=== PATIENT | female | born 1925 | race Caucasian/White ===

== ENCOUNTER 2016-07-24 21:28 | Inpatient (IN) | payer MEDICARE ==
--- NOTE | 2016-07-24 22:17 | ED ---
Female Urogenital HPI <Raj Ramírez - Last Filed: 07/24/16 23:33> - General Source: patient, RN notes reviewed Mode of arrival: ambulatory Limitations: no limitations <Sarah Delaney - Last Filed: 07/25/16 03:33> - General Chief complaint: Urogenital Stated complaint: Blood/Urine Time Seen by Provider: 07/24/16 21:58 - History of Present Illness Initial comments: Patient is a 89-year-old female presents to the emergency room for evaluation of urinary retention. Patient states she began having bleeding while urinating with clotting about 2 weeks ago. Patient states the bleeding has progressed over the last 2 weeks. Patient states that she has had on and off episodes which she is unable to urinate. Patient states after a certain amount of time, she was able to relieve her symptoms. Patient states today she has been unable to urinate. Patient states she is having constant pressure and pain in her bladder area. Patient denies any pain or burning while during urinating. Patient denies fevers or chills. Patient denies flank pain. Patient does state she has a history of renal disease. Patient also states that she's been on Lasix. Patient denies chest pain or shortness of breath. Patient denies headache or dizziness. Patient denies blood in stools. Patient denies change in color of stools. (Sarah Delaney) - Related Data Home Medications Medication Instructions Recorded Confirmed Acetaminophen Tab [Tylenol] 500 mg PO TID PRN 12/21/14 07/24/16 Aspirin EC [Ecotrin Low Dose] 81 mg PO DAILY 12/21/14 07/24/16 Cholecalciferol [Vitamin D3] 1,000 unit PO DAILY 12/21/14 07/24/16 Digoxin [Lanoxin] 125 mcg PO MOTUWEFRSA 12/21/14 07/25/16 Ferrous Sulfate [Iron (65 MG 325 mg PO DAILY 12/21/14 07/24/16 Elemental)] Furosemide [Lasix] 40 mg PO DAILY 12/21/14 07/24/16 Glimepiride [Amaryl] 4 mg PO BID@0730,1630 12/21/14 07/24/16 Insulin Glargine [Lantus] 22 unit SQ HS 12/21/14 07/24/16 [place]-3 Fatty Acids [[place]-3] 1,000 mg PO DAILY 12/21/14 07/24/16 Warfarin [Coumadin] 2.5 mg PO SUTH 12/21/14 07/25/16 Diltiazem HCl [Cardizem LA] 240 mg PO DAILY 12/22/14 07/24/16 Multivitamins, Thera [Multivitamin 1 tab PO DAILY 12/22/14 07/24/16 (formulary)] Warfarin [Coumadin] 5 mg PO MOTUWEFRSA 12/22/14 07/25/16 traMADol-ACETAMINOP 37.5-325MG 1 tab PO BID@0900,2100 12/22/14 07/24/16 [Ultracet] Atorvastatin Calcium [Lipitor] 40 mg PO HS 07/24/16 07/24/16 INSULIN LISPRO (humaLOG) [HumaLOG] See Protocol SQ AC-TID 07/24/16 07/24/16 Metoprolol Tartrate [Lopressor] 100 mg PO BID@0900,2100 07/24/16 07/24/16 SILVER sulfADIAZINE CREAM 1 applic TOPICAL DAILY 07/24/16 07/24/16 [Silvadene Cream] Ubidecarenone [Co Q-10] 100 mg PO DAILY 07/24/16 07/24/16 Allergies Allergy/AdvReac Type Severity Reaction Status Date / Time rofecoxib [From Vioxx] AdvReac Severe Chest Pain Verified 07/24/16 22:41 codeine AdvReac Vision Verified 07/24/16 22:41 Disturbance Egg Derived AdvReac Nausea & Verified 07/24/16 22:41 Vomiting & Diarrhea enoxaparin sodium AdvReac Kidney Verified 07/24/16 22:41 [From Lovenox] Failure Influenza Virus Vaccines AdvReac Nausea & Verified 07/24/16 22:41 Vomiting & Diarrhea isosorbide mononitrate AdvReac Vertigo Verified 07/24/16 22:41 [From Imdur] monosodium glutamate AdvReac Diarrhea Verified 07/24/16 22:41 pneumococcal vaccine AdvReac Nausea & Verified 07/24/16 22:41 Vomiting & Diarrhea Review of Systems ROS Other: All systems not noted in ROS Statement are negative. <Raj Ramírez - Last Filed: 07/24/16 23:33> ROS Other: All systems not noted in ROS Statement are negative. <Sarah Delaney - Last Filed: 07/25/16 03:33> ROS Statement: Those systems with pertinent positive or pertinent negative responses have been documented in the HPI. Past Medical History Past Medical History: Atrial Fibrillation, Coronary Artery Disease (CAD), CVA/ TIA, Diabetes Mellitus, Hyperlipidemia, Hypertension, Osteoarthritis (OA), Renal Disease Additional Past Medical History / Comment(s): CHF, pulmo HTN History of Any Multi-Drug Resistant Organisms: None Reported Past Surgical History: Appendectomy, Cholecystectomy, Coronary Bypass/CABG, Heart Catheterization With Stent, Tonsillectomy Additional Past Surgical History / Comment(s): Bilateral cataract removal, breast biopsy negative. Past Anesthesia/Blood Transfusion Reactions: No Reported Reaction Date of Last Stent Placement:: 2012 Past Psychological History: No Psychological Hx Reported Smoking Status: Never smoker Past Alcohol Use History: None Reported Additional Past Alcohol Use History / Comment(s): Patient is a lifelong nonsmoker. She denies any medical marijuana, marijuana, street drug or alcohol use. 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 She lives at home alone and has a dog, a cat, 3 birds. She denies any recent travel. Past Drug Use History: None Reported - Past Family History Mother Additional Family Medical History / Comment(s): Brain Tumor <Sarah Delaney - Last Filed: 07/25/16 03:33> General Exam <Raj Ramírez - Last Filed: 07/24/16 23:33> Limitations: no limitations General appearance: alert, in no apparent distress Head exam: Present: atraumatic, normocephalic, normal inspection Eye exam: Present: normal appearance ENT exam: Present: normal exam Neck exam: Present: normal inspection Respiratory exam: Present: normal lung sounds bilaterally. Absent: respiratory distress Cardiovascular Exam: Present: regular rate, normal rhythm, normal heart sounds GI/Abdominal exam: Present: soft, tenderness (suprapubic discomfort). Absent: distended, guarding Rectal exam: Present: hemorrhoids (Multiple large external hemorrhoids) External exam: Present: normal external exam Extremities exam: Present: normal inspection Back exam: Present: normal inspection Neurological exam: Present: alert, oriented X3, CN II-XII intact Psychiatric exam: Present: normal affect, normal mood Skin exam: Present: warm, dry, intact, normal color. Absent: rash <Sarah Delaney - Last Filed: 07/25/16 03:33> - General Exam Comments Initial Comments: Sitting in exam room, uncomfortable secondary urinary retention (Sarah Delaney) Course <Raj Ramírez - Last Filed: 07/24/16 23:33> <Sarah Delaney - Last Filed: 07/25/16 03:33> Vital Signs 07/24/16 07/25/16 07/25/16 21:47 00:23 01:45 Temperature 98.9 F 99.0 F 100 F H Pulse Rate 79 69 Pulse Rate [ 82 Pulse Oximetery ] Respiratory 18 18 20 Rate Blood Pressure 143/71 169/72 Blood Pressure 149/70 [Left Arm] O2 Sat by Pulse 97 93 L 93 L Oximetry - Reevaluation(s) Reevaluation #1: 07/24/16 23:33 I did personally do a [id number] evaluation the patient did discuss the findings with her and her family. Patient initially much improved she has no CVA tenderness at this time no abdominal tenderness she has of a Desai catheter in place which does show gross hematuria. She will be admitted I did discuss the case with Dr. Roberts (Raj Ramírez) Medical Decision Making - Lab Data Result diagrams: 07/24/16 22:46 07/24/16 22:46 <Raj Ramírez - Last Filed: 07/24/16 23:33> - Lab Data Result diagrams: 07/24/16 22:46 07/24/16 22:46 - Radiology Data Radiology results: report reviewed, image reviewed <Sarah Delaney - Last Filed: 07/25/16 03:33> - Medical Decision Making Patient is an 89-year-old female presents to the emergency room for evaluation urinary retention and hematuria. Patient had great relief of symptoms after Desai catheter placed. Patient has significant amount of gross hematuria noted. Patient's hemoglobin decreased from April. Case discussed with Dr. Ramírez. Dr. Ramírez discussed case with Dr. Roberts who agreed to admit patient. (Sarah Delaney) - Lab Data Lab Results 07/24/16 07/24/16 07/24/16 Range/Units 22:27 22:46 22:46 WBC 12.3 H (3.8-10.6) k/uL RBC 2.78 L (3.80-5.40) m/uL Hgb 8.7 L (11.4-16.0) gm/dL Hct 27.7 L (34.0-46.0) % MCV 99.5 (80.0-100.0) fL MCH 31.2 (25.0-35.0) pg MCHC 31.4 (31.0-37.0) g/dL RDW 15.6 H (11.5-15.5) % Plt Count 268 (150-450) k/uL Neutrophils % 82 % Lymphocytes % 9 % Monocytes % 6 % Eosinophils % 1 % Basophils % 1 % Neutrophils # 10.0 H (1.3-7.7) k/uL Lymphocytes # 1.1 (1.0-4.8) k/uL Monocytes # 0.7 (0-1.0) k/uL Eosinophils # 0.2 (0-0.7) k/uL Basophils # 0.1 (0-0.2) k/uL Hypochromasia Moderate Macrocytosis Slight PT (9.0-12.0) sec INR (<1.1) Sodium 138 (137-145) mmol/L Potassium 4.0 (3.5-5.1) mmol/L Chloride 104 (98-107) mmol/L Carbon Dioxide 25 (22-30) mmol/L Anion Gap 9 mmol/L BUN 34 H (7-17) mg/dL Creatinine 1.56 H (0.52-1.04) mg/dL Est GFR (MDRD) Af Amer 38 (>60 ml/min/1.73 sqM) Est GFR (MDRD) Non-Af 31 (>60 ml/min/1.73 sqM) Glucose 326 H (74-99) mg/dL Calcium 9.4 (8.4-10.2) mg/dL Total Bilirubin 0.5 (0.2-1.3) mg/dL AST 48 H (14-36) U/L ALT 63 H (9-52) U/L Alkaline Phosphatase 90 (38-126) U/L Total Protein 6.3 (6.3-8.2) g/dL Albumin 3.6 (3.5-5.0) g/dL Urine Color Dark Red Urine Appearance Turbid H (Clear) Urine pH 6.5 (5.0-8.0) Ur Specific [place] 1.015 (1.001-1.035) Urine Protein 2+ H (Negative) Urine Glucose (UA) Trace H (Negative) Urine Ketones Negative (Negative) Urine Blood Large H (Negative) Urine Nitrite Negative (Negative) Urine Bilirubin Negative (Negative) Urine Urobilinogen <2.0 (<2.0) mg/dL Ur Leukocyte Esterase Moderate H (Negative) Urine RBC >182 H (0-5) /hpf Urine WBC >182 H (0-5) /hpf Urine Bacteria Rare H (None) /hpf Stool Occult Blood (Negative) Blood Type Blood Type Recheck Antibody Screen Spec Expiration Date 07/24/16 07/24/16 07/24/16 Range/Units 22:46 22:46 23:40 WBC (3.8-10.6) k/uL RBC (3.80-5.40) m/uL Hgb (11.4-16.0) gm/dL Hct (34.0-46.0) % MCV (80.0-100.0) fL MCH (25.0-35.0) pg MCHC (31.0-37.0) g/dL RDW (11.5-15.5) % Plt Count (150-450) k/uL Neutrophils % % Lymphocytes % % Monocytes % % Eosinophils % % Basophils % % Neutrophils # (1.3-7.7) k/uL Lymphocytes # (1.0-4.8) k/uL Monocytes # (0-1.0) k/uL Eosinophils # (0-0.7) k/uL Basophils # (0-0.2) k/uL Hypochromasia Macrocytosis PT 19.5 H (9.0-12.0) sec INR 2.0 (<1.1) Sodium (137-145) mmol/L Potassium (3.5-5.1) mmol/L Chloride (98-107) mmol/L Carbon Dioxide (22-30) mmol/L Anion Gap mmol/L BUN (7-17) mg/dL Creatinine (0.52-1.04) mg/dL Est GFR (MDRD) Af Amer (>60 ml/min/1.73 sqM) Est GFR (MDRD) Non-Af (>60 ml/min/1.73 sqM) Glucose (74-99) mg/dL Calcium (8.4-10.2) mg/dL Total Bilirubin (0.2-1.3) mg/dL AST (14-36) U/L ALT (9-52) U/L Alkaline Phosphatase (38-126) U/L Total Protein (6.3-8.2) g/dL Albumin (3.5-5.0) g/dL Urine Color Urine Appearance (Clear) Urine pH (5.0-8.0) Ur Specific [place] (1.001-1.035) Urine Protein (Negative) Urine Glucose (UA) (Negative) Urine Ketones (Negative) Urine Blood (Negative) Urine Nitrite (Negative) Urine Bilirubin (Negative) Urine Urobilinogen (<2.0) mg/dL Ur Leukocyte Esterase (Negative) Urine RBC (0-5) /hpf Urine WBC (0-5) /hpf Urine Bacteria (None) /hpf Stool Occult Blood Positive H (Negative) Blood Type B Positive Blood Type Recheck No Antibody Screen NEGATIVE Spec Expiration Date 07/27/2016 - 2346 Disposition <Raj Ramírez - Last Filed: 07/24/16 23:33> Decision Date: 07/24/16 <Sarah Delaney - Last Filed: 07/25/16 03:33> Clinical Impression: Hematuria, Anemia, Urinary retention Disposition: ADMITTED IP TO THIS [facility] Condition: Stable
[2016-07-24 22:41] LABS: Appearance,Urine Turbid (Clear); Bacteria,Urine Rare /hpf; Bilirubin,Urine Negative (Negative); Glucose,Urine (UA) Trace (Negative); Ketones,Urine Negative (Negative); Leukocyte Esterase,Urine Moderate (Negative); Nitrite,Urine Negative (Negative); PH, Urine 6.5 (5.0-8.0); Particle Count 163715; Protein,Urine 2+ (Negative); RBC,Urine >182 /hpf (0-5); Specific Gravity,Urine 1.015 (1.001-1.035); UA Billing (MACRO vs. MICRO) MICRO; Urobilinogen,Urine <2.0 mg/dL (<2.0); WBC,Urine >182 /hpf (0-5)
[2016-07-24 22:59] LABS: Basophils # (A) 0.1 k/uL (0-0.2); Basophils % (A) 1 %; CH 30.5; Eosinophils # (A) 0.2 k/uL (0-0.7); Eosinophils % (A) 1 %; HCT 27.7 % (34.0-46.0); HDW 3.32; HGB 8.7 gm/dL (11.4-16.0); Hypochromasia Moderate; Luc # (Auto) 0.21; Luc % (Auto) 2; Lymphocytes # (A) 1.1 k/uL (1.0-4.8); Lymphocytes % (A) 9 %; MCH 31.2 pg (25.0-35.0); MCHC 31.4 g/dL (31.0-37.0); MCV 99.5 fL (80.0-100.0); Macrocytosis Slight; Mean Platelet Volume 7.8; Monocytes # (A) 0.7 k/uL (0-1.0); Monocytes % (A) 6 %; Neutrophils % (A) 82 %; RBC 2.78 m/uL (3.80-5.40); RDW 15.6 % (11.5-15.5); WBC 12.3 k/uL (3.8-10.6); WBC (Perox) 12.54
[2016-07-24 23:08] LABS: Prothrombin Time 19.5 sec (9.0-12.0)
[2016-07-24 23:15] LABS: Calcium 9.4 mg/dL (8.4-10.2); Total Bilirubin 0.5 mg/dL (0.2-1.3); Total Protein 6.3 g/dL (6.3-8.2)
[2016-07-24] MEDS ORDERED: NALOXONE 0.4 MG/ML 1 ML VIAL IV PRN (23:41)
[2016-07-24] MEDS ORDERED: ONDANSETRON 4 MG/2 ML VIAL IVP PRN (23:41)
--- NOTE | 2016-07-25 00:03 | CT ---
EXAMINATION TYPE: CT abdomen pelvis wo con DATE OF EXAM: 07/24/2016 11:53 PM COMPARISON: NONE HISTORY: Hematuria, unable to urinate CT DLP: 403.00 mGycm Automated exposure control for dose reduction was used. TECHNIQUE: Helical acquisition of images was performed from the lung bases through the pelvis. FINDINGS: The heart is enlarged. Lung bases are clear of consolidation. There is no pleural effusion. There is no pericardial effusion. Liver shows no focal defect. There is cholecystectomy. Spleen appears normal. There is no pancreatic mass. There is no adrenal mass. Kidneys have normal contour. There is no hydronephrosis. Ureters are not dilated. There is no retroperitoneal adenopathy. There is atherosclerotic vascular calcification. There is a Desai catheter in urinary bladder. Bladder is almost empty. There is no sign of a pelvic mass. I see no intestinal wall thickening. There are no dilated loops. Appendix is not seen. There is no sign of appendicitis. There is multilevel spondylosis in the lumbar spine. There is some relative high attenuation on the posterior aspect of the urinary bladder that could rel ate to bladder hemorrhage that is posterior to the lower density urine. Bladder wall is not well eval uated.: IMPRESSION: THERE IS EVIDENCE FOR SOME HEMORRHAGE IN THE POSTERIOR ASPECT OF THE URINARY BLADDER. NO EVIDENCE OF RENAL MASS OR OBSTRUCTION. ATHEROSCLEROTIC VASCULAR DISEASE. CARDIOMEGALY.
[2016-07-25] MEDS ORDERED: INSULIN LISPRO (humaLOG) 300 UNIT/3 ML VIAL SQ STA (00:13)
[2016-07-25 00:24] LABS: Glucose,Whole Blood 324 mg/dL (75-99)
[2016-07-25 00:59] VITALS: BMI 27.0
[2016-07-25 01:05] LABS: Glucose,Whole Blood 300 mg/dL (75-99)
[2016-07-25] MEDS: SODIUM CHLORIDE 0.9% 1,000 ML IV SCH ×2 (01:58→20:55)
[2016-07-25] MEDS: PANTOPRAZOLE 40 MG/10 ML VIAL IV SCH ×2 (01:58→09:01)
[2016-07-25 07:19] LABS: Glucose,Whole Blood 93 mg/dL (75-99)
[2016-07-25] MEDS: INSULIN LISPRO (humaLOG) 300 UNIT/3 ML VIAL SQ SCH ×4 (08:01→21:12)
[2016-07-25] MEDS ORDERED: DIGOXIN 125 MCG TAB PO SCH (09:00)
[2016-07-25] MEDS ORDERED: METOPROLOL TARTRATE 50 MG TAB PO SCH ×3 (09:00→21:00)
[2016-07-25] MEDS: FERROUS SULFATE 325 MG TAB PO SCH (09:02)
[2016-07-25] MEDS: DILTIAZEM CD 240 MG CAP.ER.24H PO SCH (09:02)
[2016-07-25] MEDS: CHOLECALCIFEROL 1,000 UNIT TAB PO SCH (09:02)
[2016-07-25] MEDS: FUROSEMIDE 40 MG TAB PO SCH (09:02)
[2016-07-25] MEDS: traMADol-ACETAMINOP 37.5-325MG 1 EACH TAB PO SCH ×2 (09:03→21:04)
[2016-07-25 09:29] LABS: INR 1.7 (<1.1); Prothrombin Time 16.7 sec (9.0-12.0)
[2016-07-25 09:29] LABS: Calcium 9.1 mg/dL (8.4-10.2); Total Bilirubin 0.7 mg/dL (0.2-1.3); Total Protein 5.7 g/dL (6.3-8.2)
[2016-07-25 09:32] LABS: Basophils # (A) 0.1 k/uL (0-0.2); Basophils % (A) 1 %; CH 29.9; CHCM 29.9; Eosinophils # (A) 0.2 k/uL (0-0.7); Eosinophils % (A) 2 %; HCT 25.8 % (34.0-46.0); HDW 3.05; HGB 7.7 gm/dL (11.4-16.0); Hypochromasia Marked; Luc # (Auto) 0.25; Luc % (Auto) 3; Lymphocytes # (A) 1.4 k/uL (1.0-4.8); Lymphocytes % (A) 16 %; MCH 30.3 pg (25.0-35.0); MCV 101.1 fL (80.0-100.0); Macrocytosis Slight; Mean Platelet Volume 7.6; Monocytes # (A) 0.7 k/uL (0-1.0); Monocytes % (A) 9 %; Neutrophils # (A) 5.8 k/uL (1.3-7.7); Neutrophils % (A) 69 %; RBC 2.55 m/uL (3.80-5.40); RDW 15.7 % (11.5-15.5); WBC 8.4 k/uL (3.8-10.6)
[2016-07-25] MEDS ORDERED: PHYTONADIONE ORAL 5 MG/5 ML ORAL.SYRG PO STA (10:51)
[2016-07-25 10:54] LABS: Hemoglobin A1C 6.5 % (4.2-6.1)
[2016-07-25 11:51] LABS: Glucose,Whole Blood 242 mg/dL (75-99)
--- NOTE | 2016-07-25 12:23 | P.GSCN ---
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 Hematuria became significant such that she went into urinary retention and she presented to the hospital. She was catheterized for large volume of old bloody urine. The hemoglobin on admission was 8.7 after hydration of 7.7. She is comfortable at this point in time without Chills. There is no pain other than the voiding dysfunction. She states chronically she has voiding dysfunction. She had a urinalysis identifying 182 white cells 182 red cells. She denies recurrent infection. She was never been a smoker. He has not had previous gross hematuria. She had a computed tomography scan of the abdomen showing normal upper tracts and some old blood in the posterior wall of the bladder. There is no obvious mass defect. She has been on Coumadin. Her PT is 19.2. Review of Systems - Constitutional Reports anorexia - Cardiovascular Reports high blood pressure, Reports irregular heart beat - Gastrointestinal Reports abdominal pain - Genitourinary Genitourinary: Reports as per HPI Past Medical History Past Medical History: Atrial Fibrillation, Coronary Artery Disease (CAD), CVA/ TIA, Diabetes Mellitus, Hyperlipidemia, Hypertension, Osteoarthritis (OA), Renal Disease Additional Past Medical History / Comment(s): CHF, pulmo HTN History of Any Multi-Drug Resistant Organisms: None Reported Past Surgical History: Appendectomy, Cholecystectomy, Coronary Bypass/CABG, Heart Catheterization With Stent, Tonsillectomy Additional Past Surgical History / Comment(s): Bilateral cataract removal, breast biopsy negative. Past Anesthesia/Blood Transfusion Reactions: No Reported Reaction Date of Last Stent Placement:: 2012 Past Psychological History: No Psychological Hx Reported Smoking Status: Never smoker Past Alcohol Use History: None Reported Additional Past Alcohol Use History / Comment(s): Patient is a lifelong nonsmoker. She denies any medical marijuana, marijuana, street drug or alcohol use. 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 She lives at home alone and has a dog, a cat, 3 birds. She denies any recent travel. Past Drug Use History: None Reported - Past Family History Mother Additional Family Medical History / Comment(s): Brain Tumor Medications and Allergies Home Medications Medication Instructions Recorded Confirmed Type Acetaminophen Tab [Tylenol] 500 mg PO TID PRN 12/21/14 07/24/16 History Aspirin EC [Ecotrin Low Dose] 81 mg PO DAILY 12/21/14 07/24/16 History Cholecalciferol [Vitamin D3] 1,000 unit PO DAILY 12/21/14 07/24/16 History Digoxin [Lanoxin] 125 mcg PO MOTUWEFRSA 12/21/14 07/25/16 History Ferrous Sulfate [Iron (65 MG 325 mg PO DAILY 12/21/14 07/24/16 History Elemental)] Furosemide [Lasix] 40 mg PO DAILY 12/21/14 07/24/16 History Glimepiride [Amaryl] 4 mg PO BID@0730,1630 12/21/14 07/24/16 History Insulin Glargine [Lantus] 22 unit SQ HS 12/21/14 07/24/16 History [place]-3 Fatty Acids [[place]-3] 1,000 mg PO DAILY 12/21/14 07/24/16 History Warfarin [Coumadin] 2.5 mg PO SUTH 12/21/14 07/25/16 History Diltiazem HCl [Cardizem LA] 240 mg PO DAILY 12/22/14 07/24/16 History Multivitamins, Thera [Multivitamin 1 tab PO DAILY 12/22/14 07/24/16 History (formulary)] Warfarin [Coumadin] 5 mg PO MOTUWEFRSA 12/22/14 07/25/16 History traMADol-ACETAMINOP 37.5-325MG 1 tab PO BID@0900,2100 12/22/14 07/24/16 History [Ultracet] Atorvastatin Calcium [Lipitor] 40 mg PO HS 07/24/16 07/24/16 History INSULIN LISPRO (humaLOG) [HumaLOG] See Protocol SQ AC-TID 07/24/16 07/24/16 History Metoprolol Tartrate [Lopressor] 100 mg PO BID@0900,2100 07/24/16 07/24/16 History SILVER sulfADIAZINE CREAM 1 applic TOPICAL DAILY 07/24/16 07/24/16 History [Silvadene Cream] Ubidecarenone [Co Q-10] 100 mg PO DAILY 07/24/16 07/24/16 History Allergies Allergy/AdvReac Type Severity Reaction Status Date / Time rofecoxib [From Vioxx] AdvReac Severe Chest Pain Verified 07/24/16 22:41 codeine AdvReac Vision Verified 07/24/16 22:41 Disturbance Egg Derived AdvReac Nausea & Verified 07/24/16 22:41 Vomiting & Diarrhea enoxaparin sodium AdvReac Kidney Verified 07/24/16 22:41 [From Lovenox] Failure Influenza Virus Vaccines AdvReac Nausea & Verified 07/24/16 22:41 Vomiting & Diarrhea isosorbide mononitrate AdvReac Vertigo Verified 07/24/16 22:41 [From Imdur] monosodium glutamate AdvReac Diarrhea Verified 07/24/16 22:41 pneumococcal vaccine AdvReac Nausea & Verified 07/24/16 22:41 Vomiting & Diarrhea Surgical - Exam Vital Signs Temp Pulse Resp BP Pulse Ox 98.9 F 79 18 143/71 97 07/24/16 21:47 07/24/16 21:47 07/24/16 21:47 07/24/16 21:47 07/24/16 21:47 - General well developed, well nourished, no distress - Eyes PERRL - ENT no hearing loss - Neck trachea midline - Respiratory normal expansion, normal respiratory effort - Cardiovascular Rhythm: irregularly irregular - Abdomen Abdomen: soft, non tender - Genitourinary The patient has an indwelling catheter with dark old bloody urine - Integumentary no rash, no growths - Neurologic normal coordination, normal sensation - Musculoskeletal normal posture - Psychiatric oriented to time, oriented to person, oriented to place, speech is normal, memory intact Results - Labs 07/25/16 08:46 07/25/16 08:46 Abnormal Lab Results - Last 24 Hours (Table) 07/25/16 07/25/16 07/25/16 Range/Units 00:23 00:55 08:46 RBC (3.80-5.40) m/uL Hgb (11.4-16.0) gm/dL Hct (34.0-46.0) % MCV (80.0-100.0) fL MCHC (31.0-37.0) g/dL RDW (11.5-15.5) % PT (9.0-12.0) sec Chloride (98-107) mmol/L Carbon Dioxide (22-30) mmol/L BUN (7-17) mg/dL Creatinine (0.52-1.04) mg/dL Glucose (74-99) mg/dL POC Glucose (mg/dL) 324 H 300 H (75-99) mg/dL Hemoglobin A1c 6.5 H (4.2-6.1) % AST (14-36) U/L ALT (9-52) U/L Total Protein (6.3-8.2) g/dL Albumin (3.5-5.0) g/dL 07/25/16 07/25/16 07/25/16 Range/Units 08:46 08:46 09:02 RBC 2.55 L (3.80-5.40) m/uL Hgb 7.7 L (11.4-16.0) gm/dL Hct 25.8 L (34.0-46.0) % MCV 101.1 H (80.0-100.0) fL MCHC 30.0 L (31.0-37.0) g/dL RDW 15.7 H (11.5-15.5) % PT 16.7 H (9.0-12.0) sec Chloride 108 H (98-107) mmol/L Carbon Dioxide 21 L (22-30) mmol/L BUN 29 H (7-17) mg/dL Creatinine 1.30 H (0.52-1.04) mg/dL Glucose 156 H (74-99) mg/dL POC Glucose (mg/dL) (75-99) mg/dL Hemoglobin A1c (4.2-6.1) % AST 38 H (14-36) U/L ALT 53 H (9-52) U/L Total Protein 5.7 L (6.3-8.2) g/dL Albumin 3.1 L (3.5-5.0) g/dL 07/25/16 Range/Units 11:49 RBC (3.80-5.40) m/uL Hgb (11.4-16.0) gm/dL Hct (34.0-46.0) % MCV (80.0-100.0) fL MCHC (31.0-37.0) g/dL RDW (11.5-15.5) % PT (9.0-12.0) sec Chloride (98-107) mmol/L Carbon Dioxide (22-30) mmol/L BUN (7-17) mg/dL Creatinine (0.52-1.04) mg/dL Glucose (74-99) mg/dL POC Glucose (mg/dL) 242 H (75-99) mg/dL Hemoglobin A1c (4.2-6.1) % AST (14-36) U/L ALT (9-52) U/L Total Protein (6.3-8.2) g/dL Albumin (3.5-5.0) g/dL Diabetes panel 07/25/16 07/25/16 Range/Units 08:46 08:46 Sodium 138 (137-145) mmol/L Potassium 4.0 (3.5-5.1) mmol/L Chloride 108 H (98-107) mmol/L Carbon Dioxide 21 L (22-30) mmol/L BUN 29 H (7-17) mg/dL Creatinine 1.30 H (0.52-1.04) mg/dL Glucose 156 H (74-99) mg/dL Hemoglobin A1c 6.5 H (4.2-6.1) % Calcium 9.1 (8.4-10.2) mg/dL AST 38 H (14-36) U/L ALT 53 H (9-52) U/L Alkaline Phosphatase 67 (38-126) U/L Total Protein 5.7 L (6.3-8.2) g/dL Albumin 3.1 L (3.5-5.0) g/dL Calcium panel 07/25/16 Range/Units 08:46 Calcium 9.1 (8.4-10.2) mg/dL Albumin 3.1 L (3.5-5.0) g/dL Pituitary panel 07/25/16 Range/Units 08:46 Sodium 138 (137-145) mmol/L Potassium 4.0 (3.5-5.1) mmol/L Chloride 108 H (98-107) mmol/L Carbon Dioxide 21 L (22-30) mmol/L BUN 29 H (7-17) mg/dL Creatinine 1.30 H (0.52-1.04) mg/dL Glucose 156 H (74-99) mg/dL Calcium 9.1 (8.4-10.2) mg/dL Adrenal panel 07/25/16 Range/Units 08:46 Sodium 138 (137-145) mmol/L Potassium 4.0 (3.5-5.1) mmol/L Chloride 108 H (98-107) mmol/L Carbon Dioxide 21 L (22-30) mmol/L BUN 29 H (7-17) mg/dL Creatinine 1.30 H (0.52-1.04) mg/dL Glucose 156 H (74-99) mg/dL Calcium 9.1 (8.4-10.2) mg/dL Total Bilirubin 0.7 (0.2-1.3) mg/dL AST 38 H (14-36) U/L ALT 53 H (9-52) U/L Alkaline Phosphatase 67 (38-126) U/L Total Protein 5.7 L (6.3-8.2) g/dL Albumin 3.1 L (3.5-5.0) g/dL Assessment and Plan Plan: Impression: Gross hematuria of indeterminate etiology, possible urinary tract infection. Anticoagulation effect secondary to Coumadin. Coronary artery disease with cardiac dysrhythmia. Diabetes. Recommendation: The Coumadin is being stopped. Medicine is handling her anemia. I would prefer to wait to cystoscope her if possible until the coagulation status is stabilized and whether we can determine she has had a urine infection. It is very probable that she had a hemorrhagic cystitis aggravated by the Coumadin. I will follow this patient with you.
[2016-07-25 14:31] LABS: CHCM 29.6; HCT 25.2 % (34.0-46.0); HDW 3.04; HGB 7.5 gm/dL (11.4-16.0); Hypochromasia Marked; MCH 30.7 pg (25.0-35.0); MCV 102.4 fL (80.0-100.0); Macrocytosis Slight; Mean Platelet Volume 7.7; RBC 2.46 m/uL (3.80-5.40); RDW 15.5 % (11.5-15.5); WBC 9.2 k/uL (3.8-10.6)
--- NOTE | 2016-07-25 14:47 | CONS ---
DATE OF CONSULTATION: Patient follows with my associate, Dr. Scott in the office. Patient is known to have atherosclerotic heart disease, status post aortocoronary bypass surgery x4 done in 2001 and patient also noted to have chronic atrial fibrillation with controlled ventricular rate on Coumadin therapy. Patient comes in with urinary hematuria and some urinary retention. Patient had hematuria noted and bleeding at the posterior wall of the bladder was noted on the CT scan without any other problems. Because in view of the UTI and the urine bladder hematuria, will go ahead and stop the warfarin for the time being until the urologist have a change to evaluate and possible cystoscopy. When the give us a clear indication, will go back on warfarin. Otherwise, patient's cardiac status is stable. Patient is also a diabetic on insulin and known patient of hypertension. Lives alone at present time. Daughter lives close by. Patient's medications prior to admission include aspirin which will be on hold, vitamin D 1000 units daily, digoxin 0.125 mg p.o. daily, ferrous sulfate 325 mg p.o. daily, Lasix 40 mg p.o. daily, glimepiride 4 mg p.o. b.i.d., Lantus insulin 22 units subQ, Palmer-3 fatty acids 1000 mg p.o. daily, warfarin 2.5 mg will been on hold, diltiazem 240 mg p.o. daily, warfarin 5 mg will be on hold, Atorvastatin 40 mg p.o. daily, insulin lispro, Humalog q.i.d. a.c., metoprolol Lopressor 100 mg p.o. b.i.d. Patient is allergic to multiple medications, which include CODEINE, EGG DERIVED PRODUCTS, ENOXAPARIN, INFLUENZA VACCINE, ISOSORBIDE MONONITRATE, MONOSODIUM GLUCONATE, PNEUMOCOCCAL VACCINE. Patient's review of systems are essentially unremarkable other than what is stated in the presenting illness. Patient is a nonsmoker. Known patient of chronic atrial fibrillation, coronary artery disease, diabetes mellitus, hyperlipidemia, hypertension, osteoarthritis. Physical examination revealed well-developed, well-nourished 89-year-old female not in any acute distress, oriented x3, excellent memory. Patient remembered ( ) in 1999, with a pulse rates of 69 beats per minute, irregularly irregular, blood pressure of 143/71, respirations are 18. HEAD: Normocephalic. HEENT unremarkable. Neck is supple. No thyroid enlargement. No bruit noted. Good carotid upstroke bilaterally. Chest is symmetrical. CARDIAC EXAMINATION: Irregular rate and rhythm. S1 and S2. Lungs are clinically clear to auscultation and percussion. ABDOMEN: Soft, no organomegaly. Active bowel sounds. EXTREMITIES: Decreased pedal pulses. No pedal edema. PIPE LINE GAUGER examination grossly within normal limits. EKG reveals atrial fibrillation with controlled ventricular rate. ASSESSMENT: 1. Urinary tract infection, hematuria with no retention. 2. Atherosclerotic heart disease, status post aortocoronary bypass surgery x4 done in 2001 with stable angina. 3. Chronic atrial fibrillation with controlled ventricular rate. 4. Hypertension. 5. Hyperlipidemia. RECOMMENDATIONS: Will stop the heparin or Coumadin, and aspirin until hematuria is completely resolved, then can go back on it. Explained to the patient who understood and accepted. Thanks again for this kind referral. Will see her only if our services are needed in the future.
[2016-07-25] MEDS ORDERED: FUROSEMIDE 10 MG/ML 2 ML VIAL IV ONE (16:00)
[2016-07-25 16:57] LABS: Glucose,Whole Blood 189 mg/dL (75-99)
[2016-07-25] MEDS ORDERED: WARFARIN 2.5 MG TAB PO SCH (18:00)
[2016-07-25] MEDS ORDERED: WARFARIN 5 MG TAB PO SCH (18:00)
--- NOTE | 2016-07-25 20:06 | HP ---
DATE OF ADMISSION: 07/24/2016 DATE OF SERVICE: 07/25/2016 CHIEF COMPLAINT: Hematuria. HISTORY OF PRESENT ILLNESS: This 89-year-old woman with a past medical history of atrial fibrillation, history of CAD, CABG, diabetes mellitus, hypertension, DJD, CHF, pulmonary hypertension, history of CAD, CABG, stent, being followed by Dr. Hernandez in the outpatient setting, was noted to have hematuria for the last 2 weeks. The patient initially had an episode which apparently progressed, according to her, and the patient also had on and off bleeding with some clots. The patient also had lower abdominal pain. Because of multiple symptomatology, patient came to [facility] and was admitted for further evaluation and treatment. Initial evaluation showed hemoglobin had gone up to 7.[address] scan which showed evidence of hemorrhage in the posterior aspect of the urinary bladder; no evidence of renal mass or obstruction was noted. There is no history of any fever, rigor or chills. No history of headache, loss of consciousness, seizures. The patient also had bradycardic episodes after admission. PAST MEDICAL HISTORY: 1. History of CAD. 2. History of CVA, TIA. 3. Diabetes mellitus, type 2. 4. History of hypertension. 5. Hyperlipidemia. 6. History of DJD. 7. History of renal disease. 8. History of CHF. 9. Pulmonary hypertension. 10. CAD, CABG and stent. HOME MEDICATIONS: 1. Coumadin 2.5 mg p.o. Sunday, ; 5 mg p.o. Sunday, Sunday, Sunday, Sunday, Sunday. 2. Lanoxin 124 mcg p.o. Sunday, Sunday, Sunday, Sunday, Sunday. 3. Coenzyme Q 100 mg p.o. daily. 4. Ultracet 1 tablet p.o. b.i.d. 5. Silvadene one application daily. 6. [place]-3 1000 daily. 7. Multivitamin one p.o. daily. 8. Lopressor 100 mg p.o. b.i.d. 9. Lantus 22 units subcutaneously at bedtime. 10. Humalog before meals t.i.d. 11. Amaryl 4 mg b.i.d. 12. Lasix 40 mg p.o. daily. 13. Iron 65 mg daily. 14. Cardizem LA 240 mg p.o. daily. 15. Vitamin D3 1000 daily. 16. Lipitor 40 mg at bedtime. 17. Ecotrin 81 mg p.o. daily. 18. Tylenol 500 mg t.i.d. p.r.n. ALLERGIES: 1. VIOXX. 2. CODEINE. 3. EGG-DERIVED. 4. LOVENOX. 5. INFLUENZA. 6. IMDUR. 7. MONOSODIUM GLUTAMATE. 8. PNEUMOCOCCAL VACCINE. FAMILY HISTORY: History of brain tumor in the family. SOCIAL HISTORY: No history of smoking. No history of alcohol intake. REVIEW OF SYSTEMS: ENT: Diminishing hearing. Diminished vision. CARDIOVASCULAR SYSTEM: No angina, palpitations. RESPIRATORY SYSTEM: No cough, hemoptysis. GI: As mentioned earlier. : No dysuria. NERVOUS SYSTEM: No numbness or weakness. ALLERGY/IMMUNOLOGY: No asthma or hayfever. MUSCULOSKELETAL: As mentioned earlier. HEMATOLOGY/ONCOLOGY: As mentioned earlier. ENDOCRINE: As mentioned earlier. CONSTITUTIONAL: As mentioned earlier. DERMATOLOGY: Negative. RHEUMATOLOGY: Negative. PSYCHIATRY: As mentioned earlier. PHYSICAL EXAMINATION: Patient is alert and oriented x3. Pulse 79, blood pressure 149/73, respiration 16, temperature 98.9, pulse ox 95% on room air. HEENT: Conjunctivae normal. Oral mucosa moist. NECK: No jugular venous distention. No carotid bruit. No lymph node enlargement. CARDIOVASCULAR SYSTEM: S1 normal. S2 normal. No S3. No S4. RESPIRATORY: Breath sounds diminished at the bases. A few scattered rhonchi. No crackles. ABDOMEN: Soft. Mild diffuse discomfort in the lower part of the abdomen. Otherwise, no renal angle tenderness. No mass palpable. No ascites. Bowel sounds present. No bruit. LEGS: No edema. No swelling. NERVOUS SYSTEM: Higher functions as mentioned earlier. Moves all 4 limbs. No focal motor or sensory deficit. LYMPHATICS: No lymph node palpable in neck, axillae or groin. SKIN: No ulcer, rash, bleeding. Temperature 100 degrees. LABS: WBC 8.5, hemoglobin 7.7, MCV 101.1. Creatinine is 1.30. hemoglobin A1C is 6.5. AST is 38. ALT is 53. Albumin is 33.1. ASSESSMENT: 1. Acute hematuria causing acute blood loss anemia. 2. Coumadin monitoring. 3. Possible urinary tract infection, present on admission. 4. Macrocytic anemia. 5. Increased creatinine with possible chronic kidney disease, stage III. 6. Diabetes mellitus, type 2. 7. Hypoalbuminemia with mild to moderate protein-calorie malnutrition. 8. Increased AST, ALT. 9. History of atrial fibrillation. 10. History of coronary artery disease. 11. Cerebrovascular accident, transient ischemic attack. 12. Hypertension. 13. Hyperlipidemia. 14. Degenerative joint disease. 15. History of congestive heart failure. 16. History of pulmonary hypertension. 17. History of coronary artery disease, coronary artery bypass graft with stent. 18. History of bilateral cataracts. 19. FULL CODE. RECOMMENDATIONS AND DISCUSSION: In this 89-year-old woman who presented with multiple complex medical issues, we will monitor the patient closely, continue symptomatic treatment. Urology will be consulted. Coumadin will be held. I would also recommend empiric antibiotics for UTI. Resume the rest of the medications. See orders for further details. Prognosis guarded. Discussed with the patient, who understands and agrees. Further recommendations to follow. Patient met with Urology at some point; cystoscopy at some point in time. The prognosis is guarded. Further recommendations to follow. MTDD
[2016-07-25] MEDS: METOPROLOL TARTRATE 50 MG TAB PO SCH (20:52)
[2016-07-25] MEDS: ATORVASTATIN 40 MG TAB PO SCH (20:54)
[2016-07-25 21:15] LABS: Glucose,Whole Blood 144 mg/dL (75-99)
[2016-07-25] MEDS: ACETAMINOPHEN TAB 500 MG TAB PO PRN (23:11)
[2016-07-26 07:30] LABS: Glucose,Whole Blood 93 mg/dL (75-99)
[2016-07-26] MEDS: INSULIN LISPRO (humaLOG) 300 UNIT/3 ML VIAL SQ SCH ×4 (07:43→22:01)
[2016-07-26 09:13] LABS: INR 1.3 (<1.1); Prothrombin Time 12.5 sec (9.0-12.0)
[2016-07-26] MEDS: PANTOPRAZOLE 40 MG/10 ML VIAL IV SCH (09:16)
[2016-07-26] MEDS: METOPROLOL TARTRATE 50 MG TAB PO SCH (09:16)
[2016-07-26] MEDS: FERROUS SULFATE 325 MG TAB PO SCH (09:17)
[2016-07-26] MEDS: DILTIAZEM CD 240 MG CAP.ER.24H PO SCH (09:17)
[2016-07-26] MEDS: CHOLECALCIFEROL 1,000 UNIT TAB PO SCH (09:17)
[2016-07-26] MEDS: FUROSEMIDE 40 MG TAB PO SCH (09:17)
[2016-07-26 09:43] LABS: Calcium 9.1 mg/dL (8.4-10.2); Potassium 4.6 mmol/L (3.5-5.1)
[2016-07-26] MEDS: traMADol-ACETAMINOP 37.5-325MG 1 EACH TAB PO SCH ×2 (09:46→22:17)
[2016-07-26 10:05] LABS: Anisocytosis Slight; Basophils # (A) 0.1 k/uL (0-0.2); Basophils % (A) 1 %; CHCM 30.6; Eosinophils # (A) 0.5 k/uL (0-0.7); Eosinophils % (A) 5 %; HCT 31.4 % (34.0-46.0); HDW 3.85; Hypochromasia Marked; Luc # (Auto) 0.26; Luc % (Auto) 3; Lymphocytes # (A) 1.4 k/uL (1.0-4.8); Lymphocytes % (A) 14 %; MCH 31.5 pg (25.0-35.0); MCHC 31.7 g/dL (31.0-37.0); MCV 99.2 fL (80.0-100.0); Macrocytosis Slight; Mean Platelet Volume 7.8; Monocytes # (A) 0.7 k/uL (0-1.0); Monocytes % (A) 7 %; Neutrophils # (A) 6.8 k/uL (1.3-7.7); Neutrophils % (A) 70 %; Poikilocytosis Slight; RBC 3.16 m/uL (3.80-5.40); RDW 16.1 % (11.5-15.5); WBC 9.7 k/uL (3.8-10.6); WBC (Perox) 9.72
--- NOTE | 2016-07-26 10:22 | P.PN ---
Subjective The patient was seen yesterday in consultation for gross hematuria. Her hemoglobin dropped to 7.5 she was transfused and it is tender this morning. The urine in the catheter has old blood. She did require irrigation yesterday. The computed tomography scan has been reviewed and did not show an obvious bladder mass. Her urine culture is pending. I suspect she's had a hemorrhagic cystitis aggravated by anticoagulation. She will need a cystoscopy. I still would like to wait for the culture to be finalized and since she is not having active bleeding I think this is appropriate. Objective - Vital Signs Vital signs: Vital Signs Temp 96.9 F L 07/26/16 07:00 Pulse 77 07/26/16 09:15 Resp 18 07/26/16 09:15 BP 147/70 07/26/16 09:15 Pulse Ox 100 07/26/16 09:15 Intake & Output 07/25/16 07/26/16 07/26/16 18:59 06:59 18:59 Intake Total 840 510 Output Total 2125 1000 600 Balance -1285 -490 -600 Weight 71.5 kg 77.5 kg Intake: Intake, IV Titration 290 Amount Sodium Chloride 0.9% 1, 240 000 ml @ 50 mls/hr IV . Q20H ROYCE Rx#:[id number] cefTRIAXone 1,000 mg In 50 Sodium Chloride 0.9% 50 ml @ 100 mls/hr IVPB Q24H ROYCE Rx#:[id number] Oral 240 200 Blood Product 310 310 Rc As-1 Unit 0 310 [id number] Output: Urine 2125 1000 600 Uretheral (Desai) 125 Other: Voiding Method Indwelling Catheter Indwelling Catheter - Labs CBC & Chem 7: 07/26/16 08:31 07/26/16 08:31 Labs: Abnormal Lab Results - Last 24 Hours (Table) 07/25/16 07/25/16 07/25/16 Range/Units 08:46 11:49 14:12 RBC 2.46 L (3.80-5.40) m/uL Hgb 7.5 L (11.4-16.0) gm/dL Hct 25.2 L (34.0-46.0) % MCV 102.4 H (80.0-100.0) fL MCHC 30.0 L (31.0-37.0) g/dL RDW (11.5-15.5) % PT (9.0-12.0) sec Chloride (98-107) mmol/L BUN (7-17) mg/dL Creatinine (0.52-1.04) mg/dL Glucose (74-99) mg/dL POC Glucose (mg/dL) 242 H (75-99) mg/dL Hemoglobin A1c 6.5 H (4.2-6.1) % 07/25/16 07/25/16 07/26/16 Range/Units 16:55 21:12 08:31 RBC (3.80-5.40) m/uL Hgb (11.4-16.0) gm/dL Hct (34.0-46.0) % MCV (80.0-100.0) fL MCHC (31.0-37.0) g/dL RDW (11.5-15.5) % PT 12.5 H (9.0-12.0) sec Chloride (98-107) mmol/L BUN (7-17) mg/dL Creatinine (0.52-1.04) mg/dL Glucose (74-99) mg/dL POC Glucose (mg/dL) 189 H 144 H (75-99) mg/dL Hemoglobin A1c (4.2-6.1) % 07/26/16 07/26/16 Range/Units 08:31 08:31 RBC 3.16 L (3.80-5.40) m/uL Hgb 10.0 L D (11.4-16.0) gm/dL Hct 31.4 L (34.0-46.0) % MCV (80.0-100.0) fL MCHC (31.0-37.0) g/dL RDW 16.1 H (11.5-15.5) % PT (9.0-12.0) sec Chloride 108 H (98-107) mmol/L BUN 24 H (7-17) mg/dL Creatinine 1.33 H (0.52-1.04) mg/dL Glucose 119 H (74-99) mg/dL POC Glucose (mg/dL) (75-99) mg/dL Hemoglobin A1c (4.2-6.1) %
[2016-07-26] MEDS: ACETAMINOPHEN TAB 500 MG TAB PO PRN (10:29)
[2016-07-26 11:56] LABS: Glucose,Whole Blood 267 mg/dL (75-99)
[2016-07-26] MEDS: GLIMEPIRIDE 4 MG TAB PO SCH (16:48)
[2016-07-26 17:06] LABS: Glucose,Whole Blood 188 mg/dL (75-99)
--- NOTE | 2016-07-26 17:54 | PN ---
Patient was admitted to the hospital with hematuria; known patient with atrial fibrillation, hypertension. Patient is having a lot of pauses, up to 2.6 seconds. Will cut back on the beta blockers. Lopressor has already been dropped from 100 to 50 and now will drop to 25 mg twice a day. Discontinue the Cardizem. Will increase amlodipine to 5 mg p.o. b.i.d. to control her blood pressure until this problem is over. However, if patient develops sinus pauses more than 4 seconds, will consider pacemaker to be done by Dr. Scott. Patient's vital signs are stable with a pulse rate of 64 beats per minute, irregularly irregular, blood pressure of 169/71, respirations of 17. Head normocephalic. HEENT unremarkable. Neck is supple. No thyroid enlargement. No bruit noted. CARDIAC EXAMINATION: Regular rate and rhythm. S1 and S2. Lungs are clinically to auscultation and percussion. ASSESSMENT: 1. Hematuria. 2. Urinary tract infection. 3. Status post aortocoronary bypass surgery with stable angina. 4. Atrial fibrillation. 5. Hypertension. 6. 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 May required pacemaker.
[2016-07-26] MEDS ORDERED: WARFARIN 2.5 MG TAB PO SCH (18:00)
[2016-07-26] MEDS: SODIUM CHLORIDE 0.9% 1,000 ML IV SCH ×2 (20:04→20:35)
[2016-07-26 21:14] LABS: Glucose,Whole Blood 124 mg/dL (75-99)
[2016-07-26] MEDS: amLODIPine 5 MG TAB PO SCH (22:00)
[2016-07-26] MEDS: METOPROLOL TARTRATE 25 MG TAB PO SCH (22:01)
[2016-07-26] MEDS: ATORVASTATIN 40 MG TAB PO SCH (22:01)
[2016-07-26] MEDS: INSULIN GLARGINE 100 UNIT/ML 10 ML VIAL SQ SCH (22:17)
--- NOTE | 2016-07-26 22:49 | PN ---
DATE OF SERVICE: 07/26/2016 This 89-year-old woman who was admitted with acute hematuria and acute blood loss anemia is being closely monitored at this time. The patient had Desai catheter inserted. Cardiology is following the patient and medications are being adjusted. The patient also had stretch of significant bradycardia. Digoxin has been stopped. Digoxin level was found to be 0.7. I have seen and evaluated the patient with the nurse practitioner. Please refer to the nurse practitioner's notes and impressions documented as scribe for further information. Closely follow with Urology as well as Cardiology.
[2016-07-27] MEDS: SODIUM CHLORIDE 0.9% 1,000 ML IV SCH (00:47)
[2016-07-27] MEDS: INSULIN LISPRO (humaLOG) 300 UNIT/3 ML VIAL SQ SCH ×4 (07:36→22:11)
[2016-07-27 07:48] LABS: Glucose,Whole Blood 65 mg/dL (75-99)
[2016-07-27 08:09] LABS: Glucose,Whole Blood 90 mg/dL (75-99)
[2016-07-27] MEDS: GLIMEPIRIDE 4 MG TAB PO SCH ×3 (08:18→16:49)
[2016-07-27] MEDS: PANTOPRAZOLE 40 MG/10 ML VIAL IV SCH (08:50)
[2016-07-27] MEDS: CHOLECALCIFEROL 1,000 UNIT TAB PO SCH (08:50)
[2016-07-27] MEDS: METOPROLOL TARTRATE 25 MG TAB PO SCH ×2 (08:51→08:54)
[2016-07-27] MEDS: amLODIPine 5 MG TAB PO SCH ×2 (08:51→21:19)
[2016-07-27] MEDS: FUROSEMIDE 40 MG TAB PO SCH (08:51)
[2016-07-27] MEDS: FERROUS SULFATE 325 MG TAB PO SCH (08:51)
[2016-07-27] MEDS: traMADol-ACETAMINOP 37.5-325MG 1 EACH TAB PO SCH ×2 (08:52→21:21)
[2016-07-27] MEDS ORDERED: amLODIPine 5 MG TAB PO SCH (09:00)
[2016-07-27] MEDS ORDERED: NON-FORMULARY DRUG (Omega-3 Fatty Acids [Omega-3] 1,000 MG) PO SCH (09:00)
[2016-07-27] MEDS ORDERED: NON-FORMULARY DRUG (Ubidecarenone [Co Q-10] 100 MG) PO SCH (09:00)
[2016-07-27 09:21] LABS: Basophils # (A) 0.1 k/uL (0-0.2); Basophils % (A) 1 %; CH 30.1; CHCM 29.8; Eosinophils # (A) 0.7 k/uL (0-0.7); Eosinophils % (A) 7 %; HDW 3.36; HGB 9.4 gm/dL (11.4-16.0); Hypochromasia Marked; Luc % (Auto) 2; Lymphocytes # (A) 1.1 k/uL (1.0-4.8); Lymphocytes % (A) 11 %; MCH 30.9 pg (25.0-35.0); MCHC 30.2 g/dL (31.0-37.0); MCV 102.2 fL (80.0-100.0); Macrocytosis Slight; Mean Platelet Volume 7.8; Monocytes # (A) 0.7 k/uL (0-1.0); Monocytes % (A) 7 %; Neutrophils # (A) 7.6 k/uL (1.3-7.7); Neutrophils % (A) 74 %; RBC 3.03 m/uL (3.80-5.40); RDW 15.7 % (11.5-15.5); WBC 10.2 k/uL (3.8-10.6); WBC (Perox) 11.23
[2016-07-27 09:30] LABS: INR 1.1 (<1.1); Prothrombin Time 11.1 sec (9.0-12.0)
[2016-07-27 09:32] LABS: Calcium 9.1 mg/dL (8.4-10.2); Potassium 4.3 mmol/L (3.5-5.1)
--- NOTE | 2016-07-27 11:12 | P.PN ---
Subjective The patient came to the hospital with gross hematuria. Her urinalysis was suggestive of urine infection. I suspected she had a hemorrhagic cystitis aggravated by Coumadin. Her urine is growing E. coli so the diagnosis is appropriate. Her gross hematuria seems to be clearing. Her hemoglobin was 9.4 today and 10 yesterday. Catheter probably can be removed tomorrow. She should continue on oral antibiotics until I see her in the office in about 2 weeks. Objective - Vital Signs Vital signs: Vital Signs Temp 97.3 F L 07/27/16 07:00 Pulse 65 07/27/16 07:00 Resp 16 07/27/16 07:00 BP 170/63 07/27/16 07:00 Pulse Ox 98 07/27/16 07:00 Intake & Output 07/26/16 07/27/16 07/27/16 18:59 06:59 18:59 Output Total 1100 1200 250 Balance -1100 -1200 -250 Weight 77.5 kg 79 kg Output: Urine 1100 1200 250 Other: Voiding Method Indwelling Catheter Indwelling Catheter - Labs CBC & Chem 7: 07/27/16 08:37 07/27/16 08:37 Labs: Abnormal Lab Results - Last 24 Hours (Table) 07/26/16 07/26/16 07/26/16 Range/Units 11:54 17:03 21:11 RBC (3.80-5.40) m/uL Hgb (11.4-16.0) gm/dL Hct (34.0-46.0) % MCV (80.0-100.0) fL MCHC (31.0-37.0) g/dL RDW (11.5-15.5) % Chloride (98-107) mmol/L BUN (7-17) mg/dL Creatinine (0.52-1.04) mg/dL POC Glucose (mg/dL) 267 H 188 H 124 H (75-99) mg/dL 07/27/16 07/27/16 07/27/16 Range/Units 07:41 08:37 08:37 RBC 3.03 L (3.80-5.40) m/uL Hgb 9.4 L (11.4-16.0) gm/dL Hct 31.0 L (34.0-46.0) % MCV 102.2 H (80.0-100.0) fL MCHC 30.2 L (31.0-37.0) g/dL RDW 15.7 H (11.5-15.5) % Chloride 108 H (98-107) mmol/L BUN 22 H (7-17) mg/dL Creatinine 1.21 H (0.52-1.04) mg/dL POC Glucose (mg/dL) 65 L (75-99) mg/dL Microbiology - Last 24 Hours (Table) 07/25/16 14:12 Blood Culture - Preliminary Blood No Growth after 24 hours 07/25/16 13:38 Blood Culture - Preliminary Blood No Growth after 24 hours
[2016-07-27 11:40] LABS: Glucose,Whole Blood 352 mg/dL (75-99)
[2016-07-27 16:48] LABS: Glucose,Whole Blood 161 mg/dL (75-99)
--- NOTE | 2016-07-27 17:18 | P.PN ---
Subjective date of service 07/26/2016 Progress note being dictated for Dr. Solorzano Interval history: This is an 89-year-old female admitted with acute hematuria, acute blood loss anemia, possible UTIand multiple other medical issues.received vitamin K yesterday with INR down to 1.3. Status post transfusion of1 unit PRBC ,current hemoglobin increased to 10. Evaluated by both cardiology and urology with recommendations noted.Desai catheter with dark appearing blood, irrigated throughout the night and this morning,less clotty. complains of suprapubic pressure.Urine culture pending.afebrile, WBC wnl. Having multiple pauses up to 2.6 seconds, asymptomatic.beta jemal decreased, Cardizem discontinued Norvasc increased as per cardiology. Review of systems: HEENT: Denies headache or focal deficits. Denies any dizziness or lightheadedness. Respiratory: Denies any increased shortness of breath. Cardiac: Denies any chest pain, palpitations. GI: Denies any nausea, vomiting, or diarrhea. Denies any abdominal tenderness. : complaints of suprapubic pressure, denies pain Psychiatry: Denies any anxiety or depression. Active Medications Generic Name Dose Route Start Last Admin Trade Name Freq PRN Reason Stop Dose Admin Acetaminophen 500 mg 07/24/16 23:46 07/26/16 10:29 Tylenol Tab PO 500 mg TID PRN Administration Pain Amlodipine Besylate 5 mg 07/26/16 21:00 07/27/16 08:51 Norvasc PO 5 mg BID ROYCE Administration Atorvastatin Calcium 40 mg 07/25/16 21:00 07/26/16 22:01 Lipitor PO 40 mg HS ROYCE Administration Cholecalciferol 1,000 unit 07/25/16 09:00 07/27/16 08:50 Vitamin D3 PO 1,000 unit DAILY ROYCE Administration Ferrous Sulfate 325 mg 07/25/16 09:00 07/27/16 08:51 Feosol PO 325 mg DAILY ROYCE Administration Furosemide 40 mg 07/25/16 09:00 07/27/16 08:51 Lasix PO 40 mg DAILY ROYCE Administration Glimepiride 4 mg 07/26/16 16:30 07/27/16 16:49 Amaryl PO 4 mg BID@0730,1630 ROYCE Administration Sodium Chloride 1,000 mls @ 20 mls/hr 07/24/16 23:45 07/27/16 00:47 Saline 0.9% IV 20 mls/hr .Q24H ROYCE Administration Ceftriaxone Sodium 1,000 mg/ 50 mls @ 100 mls/hr 07/25/16 13:00 07/27/16 11: 33 Sodium Chloride IVPB 100 mls/hr Q24H ROYCE Administration Insulin Glargine 22 unit 07/26/16 21:00 07/26/16 22:17 Lantus SQ 22 unit HS ROYCE Administration Insulin Human Lispro 0 unit 07/25/16 07:30 07/27/16 11:33 Humalog SQ 6 unit ACHS ROYCE Administration Protocol Metoprolol Tartrate 12.5 mg 07/27/16 21:00 Lopressor PO BID ROYCE Naloxone HCl 0.2 mg 07/24/16 23:41 Narcan IV Q2M PRN Opioid Reversal Ondansetron HCl 4 mg 07/24/16 23:41 Zofran IVP Q8HR PRN Nausea And Vomiting Pantoprazole Sodium 40 mg 07/24/16 23:45 07/27/16 08:50 Protonix IV 40 mg DAILY ROYCE Administration Silver Sulfadiazine 1 applic 07/27/16 09:00 07/27/16 08:52 Silvadene Cream TOPICAL 1 applic DAILY ROYCE Administration Tramadol/Acetaminophen 1 each 07/25/16 09:00 07/27/16 08:52 Ultracet PO 1 each BID@0900,2100 ROYCE Administration Objective - Vital Signs Vital signs: Vital Signs Temp 98.6 F 07/26/16 15:00 Pulse 64 07/26/16 15:00 Resp 14 07/26/16 15:00 BP 126/63 07/26/16 15:00 Pulse Ox 99 07/26/16 15:00 Intake & Output 07/25/16 07/26/16 07/26/16 18:59 06:59 18:59 Intake Total 840 510 Output Total 3881 1000 850 Balance -1881 -890 -841 Weight 71.5 kg 77.5 kg Intake: Intake, IV Titration 290 Amount Sodium Chloride 0.9% 1, 240 000 ml @ 50 mls/hr IV . Q20H ROYCE Rx#:[id number] cefTRIAXone 1,000 mg In 50 Sodium Chloride 0.9% 50 ml @ 100 mls/hr IVPB Q24H ROYCE Rx#:[id number] Oral 240 200 Blood Product 310 310 Rc As-1 Unit 0 310 [id number] Output: Urine 2125 1000 850 Uretheral (Desai) 125 Other: Voiding Method Indwelling Catheter Indwelling Catheter Indwelling Catheter - Exam PHYSICAL EXAM: VITAL SIGNS: [as above] GENERAL: [sitting up in bed, no acute distress] HEENT: [Pupils equal conjunctiva normal.] NECK: [Supple, no JVD] RESPIRATORY EFFORT:[normal] LUNGS: [bilateral bases diminished occasional scattered rhonchi, no crackles, wheezes] CARDIOVASCULAR[regular S1 and S2, no edema] GI: [Abdomen soft, nontender, positive bowel sounds.no guarding, no rigidity] PSYCH: [Alert and oriented -3, mood and affect normal.] NEURO: [no focal deficits moves all 4 extremities, strength and sensation grossly intact] Microbiology - Labs CBC & Chem 7: 07/27/16 08:37 07/27/16 08:37 Labs: Abnormal Lab Results - Last 24 Hours (Table) 07/25/16 07/26/16 07/26/16 Range/Units 21:12 08:31 08:31 RBC (3.80-5.40) m/uL Hgb (11.4-16.0) gm/dL Hct (34.0-46.0) % RDW (11.5-15.5) % PT 12.5 H (9.0-12.0) sec Chloride 108 H (98-107) mmol/L BUN 24 H (7-17) mg/dL Creatinine 1.33 H (0.52-1.04) mg/dL Glucose 119 H (74-99) mg/dL POC Glucose (mg/dL) 144 H (75-99) mg/dL 07/26/16 07/26/16 07/26/16 Range/Units 08:31 11:54 17:03 RBC 3.16 L (3.80-5.40) m/uL Hgb 10.0 L D (11.4-16.0) gm/dL Hct 31.4 L (34.0-46.0) % RDW 16.1 H (11.5-15.5) % PT (9.0-12.0) sec Chloride (98-107) mmol/L BUN (7-17) mg/dL Creatinine (0.52-1.04) mg/dL Glucose (74-99) mg/dL POC Glucose (mg/dL) 267 H 188 H (75-99) mg/dL Microbiology - Last 24 Hours (Table) 07/25/16 14:12 Blood Culture - Preliminary Blood No Growth after 24 hours 07/25/16 13:38 Blood Culture - Preliminary Blood No Growth after 24 hours Assessment and Plan Plan: 1. [acute hematuria causing acute blood loss anemia]. 2. [Coumadin monitoring]. 3. [possible acute UTI, present on admission]. 4. [macrocytic anemia]. 5. [acute on chronic kidney disease, stage III]. 6. [diabetes mellitus type 2]. 7. [hypoalbuminemia with mild to moderate protein calorie malnutrition]. 8. Elevated LFTs 9. History of atrial fibrillation 10. CAD, history of CABG 11. CVA, TIA, history of 12. Hypertension 13. Hyperlipidemia 14. Degenerative joint disease 15. History of congestive heart failure 16. Pulmonary hypertension 17. Bilateral cataracts 18. tachycardia-bradycardia syndrome; pauses Plan:continue on current medication regime ,monitoring and symptomatic treatment. maintain empiric antibiotics. Continue holding Coumadin.close monitoring of CBC and electro lytes with repeat labs ordered for a.m.Maintain remote telemetry-patient having pauses.I'll closely with cardiology and urology. Further recommendations to follow. The impression and plan of care has been dictated as directed. : I performed a H&P examination of this patient and discussed the same with the dictator. I agree with the dictator's note. Any additional findings/opinions/ etc. will be noted.
--- NOTE | 2016-07-27 17:26 | P.PN ---
Subjective date of service 07/27/2016 Progress note being dictated for Dr. Solorzano Interval history: This is an 89-year-old female admitted with acute hematuria, acute blood loss anemia, possible UTIand multiple other medical issues.hemoglobin9.4, INR 1.1. Desai catheter with persistent dark bloody urine , no clots.Urine culture positive for E. coli.maintained on Rocephin.afebrile, WBC wnl. renal function improving. Continues to have multiple pauses, asymptomatic. Beta jemal dose decreased with Further recommendations from cardiology pending. Review of systems: HEENT: Denies headache or focal deficits. Denies any dizziness or lightheadedness. Respiratory: Denies any increased shortness of breath. Cardiac: Denies any chest pain, palpitations. GI: Denies any nausea, vomiting, or diarrhea. Denies any abdominal tenderness. : complaints of improving suprapubic pressure, denies pain Psychiatry: Denies any anxiety or depression. A Active Medications Acetaminophen (Tylenol Tab) 500 mg PO TID PRN PRN Reason: Pain Last Admin: 07/26/16 10:29 Dose: 500 mg Amlodipine Besylate (Norvasc) 5 mg PO BID [facility] Last Admin: 07/27/16 08:51 Dose: 5 mg Atorvastatin Calcium (Lipitor) 40 mg PO HS [facility] Last Admin: 07/26/16 22:01 Dose: 40 mg Cholecalciferol (Vitamin D3) 1,000 unit PO DAILY [facility] Last Admin: 07/27/16 08:50 Dose: 1,000 unit Ferrous Sulfate (Feosol) 325 mg PO DAILY [facility] Last Admin: 07/27/16 08:51 Dose: 325 mg Furosemide (Lasix) 40 mg PO DAILY [facility] Last Admin: 07/27/16 08:51 Dose: 40 mg Glimepiride (Amaryl) 4 mg PO BID@0730,1630 [facility] Last Admin: 07/27/16 16:49 Dose: 4 mg Sodium Chloride (Saline 0.9%) 1,000 mls @ 20 mls/hr IV .Q24H [facility] Last Admin: 07/27/16 00:47 Dose: 20 mls/hr Ceftriaxone Sodium 1,000 mg/ (Sodium Chloride) 50 mls @ 100 mls/hr IVPB Q24H [facility] Last Admin: 07/27/16 11:33 Dose: 100 mls/hr Insulin Glargine (Lantus) 22 unit SQ HS [facility] Last Admin: 07/26/16 22:17 Dose: 22 unit Insulin Human Lispro (Humalog) 0 unit SQ ACHS [facility] PRN Reason: Protocol Last Admin: 07/27/16 11:33 Dose: 6 unit Metoprolol Tartrate (Lopressor) 12.5 mg PO BID [facility] Naloxone HCl (Narcan) 0.2 mg IV Q2M PRN PRN Reason: Opioid Reversal Ondansetron HCl (Zofran) 4 mg IVP Q8HR PRN PRN Reason: Nausea And Vomiting Pantoprazole Sodium (Protonix) 40 mg IV DAILY [facility] Last Admin: 07/27/16 08:50 Dose: 40 mg Silver Sulfadiazine (Silvadene Cream) 1 applic TOPICAL DAILY [facility] Last Admin: 07/27/16 08:52 Dose: 1 applic Tramadol/Acetaminophen (Ultracet) 1 each PO BID@0900,2100 [facility] Last Admin: 07/27/16 08:52 Dose: 1 each Objective - Vital Signs Vital signs: Vital Signs Temp 98.2 F 07/27/16 15:00 Pulse 68 07/27/16 15:00 Resp 16 07/27/16 15:00 BP 127/65 07/27/16 15:00 Pulse Ox 93 L 07/27/16 15:00 Intake & Output 07/26/16 07/27/16 07/27/16 18:59 06:59 18:59 Intake Total 50 Output Total 1100 1200 250 Balance -1100 -1200 -200 Weight 77.5 kg 79 kg Intake: Intake, IV Titration 50 Amount cefTRIAXone 1,000 mg In 50 Sodium Chloride 0.9% 50 ml @ 100 mls/hr IVPB Q24H [facility] Rx#:[id number] Output: Urine 1100 1200 250 Other: Voiding Method Indwelling Catheter Indwelling Catheter Indwelling Catheter # Voids 650 - Exam PHYSICAL EXAM: VITAL SIGNS: [as above] GENERAL: [sitting up in bed, no acute distress] HEENT: [Pupils equal conjunctiva normal.] NECK: [Supple, no JVD] RESPIRATORY EFFORT:[normal] LUNGS: [bilateral bases diminished occasional scattered rhonchi, no crackles, wheezes] CARDIOVASCULAR[regular S1 and S2, no edema] GI: [Abdomen soft, nontender, positive bowel sounds.no guarding, no rigidity] PSYCH: [Alert and oriented -3, mood and affect normal.] NEURO: [no focal deficits moves all 4 extremities, strength and sensation grossly intact] Microbiology 07/25/16 14:12 Blood Blood Culture - Preliminary No Growth after 48 hours 07/25/16 13:38 Blood Blood Culture - Preliminary No Growth after 48 hours 07/24/16 22:27 Urine,Voided Urine Culture - Final Escherichia coli - Labs CBC & Chem 7: 07/27/16 08:37 07/27/16 08:37 Labs: Abnormal Lab Results - Last 24 Hours (Table) 07/26/16 07/27/16 07/27/16 Range/Units 21:11 07:41 08:37 RBC 3.03 L (3.80-5.40) m/uL Hgb 9.4 L (11.4-16.0) gm/dL Hct 31.0 L (34.0-46.0) % MCV 102.2 H (80.0-100.0) fL MCHC 30.2 L (31.0-37.0) g/dL RDW 15.7 H (11.5-15.5) % Chloride (98-107) mmol/L BUN (7-17) mg/dL Creatinine (0.52-1.04) mg/dL POC Glucose (mg/dL) 124 H 65 L (75-99) mg/dL 07/27/16 07/27/16 07/27/16 Range/Units 08:37 11:28 16:47 RBC (3.80-5.40) m/uL Hgb (11.4-16.0) gm/dL Hct (34.0-46.0) % MCV (80.0-100.0) fL MCHC (31.0-37.0) g/dL RDW (11.5-15.5) % Chloride 108 H (98-107) mmol/L BUN 22 H (7-17) mg/dL Creatinine 1.21 H (0.52-1.04) mg/dL POC Glucose (mg/dL) 352 H 161 H (75-99) mg/dL Microbiology - Last 24 Hours (Table) 07/25/16 14:12 Blood Culture - Preliminary Blood No Growth after 48 hours 07/25/16 13:38 Blood Culture - Preliminary Blood No Growth after 48 hours Assessment and Plan Plan: 1. [acute hematuria causing acute blood loss anemia]. 2. [Coumadin monitoring]. 3. [possible acute UTI, present on admission]. 4. [macrocytic anemia]. 5. [acute on chronic kidney disease, stage III]. 6. [diabetes mellitus type 2]. 7. [hypoalbuminemia with mild to moderate protein calorie malnutrition]. 8. Elevated LFTs 9. History of atrial fibrillation 10. CAD, history of CABG 11. CVA, TIA, history of 12. Hypertension 13. Hyperlipidemia 14. Degenerative joint disease 15. History of congestive heart failure 16. Pulmonary hypertension 17. Bilateral cataracts 18. tachycardia-bradycardia syndrome; pauses Plan:continue on current medication regime ,monitoring and symptomatic treatment. maintain empiric antibiotics. Continue holding Coumadin.close monitoring of CBC and renal function with repeat labs ordered for a.m. further recommendations pending from cardiology, as patient continues to have pauses; potential pacemaker. follow closely with cardiology and urology. Further recommendations to follow.discharge planning in progress for tomorrow. The impression and plan of care has been dictated as directed. : I performed a H&P examination of this patient and discussed the same with the dictator. I agree with the dictator's note. Any additional findings/opinions/ etc. will be noted.
[2016-07-27] MEDS ORDERED: WARFARIN 2.5 MG TAB PO SCH (18:00)
[2016-07-27 21:12] LABS: Glucose,Whole Blood 172 mg/dL (75-99)
[2016-07-27] MEDS: ATORVASTATIN 40 MG TAB PO SCH (21:20)
[2016-07-27] MEDS: METOPROLOL TARTRATE 12.5 MG TAB PO SCH (21:21)
[2016-07-27] MEDS: INSULIN GLARGINE 100 UNIT/ML 10 ML VIAL SQ SCH (22:11)
[2016-07-27 22:15] VITALS: TEMP 98.4
[2016-07-28] MEDS: SODIUM CHLORIDE 0.9% 1,000 ML IV SCH (01:19)
[2016-07-28 07:16] LABS: Glucose,Whole Blood 144 mg/dL (75-99)
--- NOTE | 2016-07-28 07:49 | PN ---
DATE OF SERVICE: 07/27/2016 This 89-year-old woman who was admitted with acute hematuria as well as blood loss anemia is being closely monitored. Patient also had a UTI. Cultures are showing E. coli which is poly sensitive. The patient on broad spectrum IV antibiotics. Seen and evaluated the patient along with nurse practitioner. Please refer to the nurse practitioner notes and impression documented as a scribe for further information. We will monitor the patient closely. Closely follow with Cardiology and as well as urology and monitor for control of the bleeding. Outpatient cystoscopy. Further recommendations to follow. Prognosis guarded. MTDD
[2016-07-28 07:57] VITALS: BP 145/77; PULSE 85; RESP 16
[2016-07-28 09:07] LABS: Basophils % (A) 0 %; CH 30.1; CHCM 30.6; Eosinophils # (A) 0.7 k/uL (0-0.7); Eosinophils % (A) 9 %; HCT 30.9 % (34.0-46.0); HDW 3.43; HGB 9.6 gm/dL (11.4-16.0); Hypochromasia Marked; Luc # (Auto) 0.27; Luc % (Auto) 3; Lymphocytes # (A) 1.2 k/uL (1.0-4.8); Lymphocytes % (A) 15 %; MCH 30.8 pg (25.0-35.0); MCV 99.4 fL (80.0-100.0); Macrocytosis Slight; Mean Platelet Volume 7.2; Monocytes # (A) 0.6 k/uL (0-1.0); Monocytes % (A) 7 %; Neutrophils # (A) 5.6 k/uL (1.3-7.7); Neutrophils % (A) 66 %; Poikilocytosis Slight; RBC 3.11 m/uL (3.80-5.40); RDW 15.3 % (11.5-15.5); WBC 8.5 k/uL (3.8-10.6); WBC (Perox) 8.71
[2016-07-28 09:10] LABS: INR 1.1 (<1.1); Prothrombin Time 11.3 sec (9.0-12.0)
[2016-07-28] MEDS: PANTOPRAZOLE 40 MG/10 ML VIAL IV SCH (09:10)
[2016-07-28] MEDS: INSULIN LISPRO (humaLOG) 300 UNIT/3 ML VIAL SQ SCH ×2 (09:10→13:15)
[2016-07-28] MEDS: FERROUS SULFATE 325 MG TAB PO SCH (09:11)
[2016-07-28] MEDS: amLODIPine 5 MG TAB PO SCH (09:11)
[2016-07-28] MEDS: FUROSEMIDE 40 MG TAB PO SCH (09:11)
[2016-07-28] MEDS: CHOLECALCIFEROL 1,000 UNIT TAB PO SCH (09:11)
[2016-07-28] MEDS: METOPROLOL TARTRATE 12.5 MG TAB PO SCH (09:11)
[2016-07-28] MEDS: GLIMEPIRIDE 4 MG TAB PO SCH (09:11)
[2016-07-28] MEDS: traMADol-ACETAMINOP 37.5-325MG 1 EACH TAB PO SCH (09:13)
[2016-07-28 09:18] LABS: Calcium 9.2 mg/dL (8.4-10.2); Potassium 4.2 mmol/L (3.5-5.1)
[2016-07-28 12:08] LABS: Glucose,Whole Blood 198 mg/dL (75-99)
--- NOTE | 2016-07-28 12:15 | P.PN ---
Subjective The patient was seen for gross hematuria and clot retention. It is my belief she has had a hemorrhagic cystitis aggravated by Coumadin. The catheter is out and she is voiding. There is still old blood coming however. From a urologic standpoint she can go home. I will see her in the office in 2 weeks to cystoscope her. I would prefer that she stay off the Coumadin until then if possible. Objective - Vital Signs Vital signs: Vital Signs Temp 98.4 F 07/28/16 07:00 Pulse 85 07/28/16 07:00 Resp 16 07/28/16 07:00 BP 145/77 07/28/16 07:00 Pulse Ox 90 L 07/28/16 07:00 Intake & Output 07/27/16 07/28/16 07/28/16 18:59 06:59 18:59 Intake Total 50 Output Total 250 650 Balance -200 -650 Weight 80 kg Intake: Intake, IV Titration 50 Amount cefTRIAXone 1,000 mg In 50 Sodium Chloride 0.9% 50 ml @ 100 mls/hr IVPB Q24H [facility] Rx#:[id number] Output: Urine 250 650 Other: Voiding Method Indwelling Catheter Indwelling Catheter Toilet # Voids 650 - Labs CBC & Chem 7: 07/28/16 08:42 07/28/16 08:42 Labs: Abnormal Lab Results - Last 24 Hours (Table) 07/27/16 07/27/16 07/28/16 Range/Units 16:47 21:00 07:14 RBC (3.80-5.40) m/uL Hgb (11.4-16.0) gm/dL Hct (34.0-46.0) % Chloride (98-107) mmol/L BUN (7-17) mg/dL Creatinine (0.52-1.04) mg/dL Glucose (74-99) mg/dL POC Glucose (mg/dL) 161 H 172 H 144 H (75-99) mg/dL 07/28/16 07/28/16 07/28/16 Range/Units 08:42 08:42 12:07 RBC 3.11 L (3.80-5.40) m/uL Hgb 9.6 L (11.4-16.0) gm/dL Hct 30.9 L (34.0-46.0) % Chloride 108 H (98-107) mmol/L BUN 26 H (7-17) mg/dL Creatinine 1.36 H (0.52-1.04) mg/dL Glucose 109 H (74-99) mg/dL POC Glucose (mg/dL) 198 H (75-99) mg/dL Microbiology - Last 24 Hours (Table) 07/25/16 14:12 Blood Culture - Preliminary Blood No Growth after 48 hours 07/25/16 13:38 Blood Culture - Preliminary Blood No Growth after 48 hours
--- NOTE | 2016-07-28 17:50 | DS ---
DATE OF ADMISSION: 07/24/2016 DATE OF DISCHARGE: 07/28/2016 FINAL DIAGNOSES: 1. Acute hematuria causing acute blood loss anemia. 2. Possible hemorrhagic cystitis. 3. Coumadin monitoring. 4. Possible acute urinary tract infection with Escherichia coli, present on admission. 5. Microcytic anemia. 6. Acute on chronic kidney disease, stage III. 7. Diabetes mellitus, type 2. 8. Hypoalbuminemia with mild to moderate protein-calorie malnutrition. 9. Elevated liver function tests. 10. History of atrial fibrillation. 11. Coronary artery disease, history of coronary artery bypass graft. 12. Cerebrovascular accident, transient ischemic attack history. 13. Hypertension, essential. 14. Hyperlipidemia. 15. History of degenerative joint disease. 16. History of congestive heart failure; ejection fraction unknown. 17. Pulmonary hypertension. 18. History of bilateral cataracts. 19. Tachy-blank syndrome with pauses. DISCHARGE DISPOSITION: The patient will be discharged in stable condition with guarded prognosis. Cardiology cleared the patient for discharge. Total time taken 35 minutes. HISTORY OF PRESENT ILLNESS: This 89-year-old woman with a past medical history of multiple medical problems was admitted with hematuria and other multiple medical issues. Coumadin was stopped. Anticoagulation stopped and the patient had a Desai catheter. Hematuria improved and Urology, Dr. Lawrence, saw the patient and recommended outpatient followup for possible cystoscopy. Hemorrhagic cystitis was a consideration. Antibiotics are continued. E coli grew from the cultures. Patient is followed by Dr. Gavin Dockery in the outpatient setting. On exam, vital signs are stable. CARDIOVASCULAR SYSTEM: S1, S2 muffled. ABDOMEN: Soft. NERVOUS SYSTEM: No focal deficit. Creatinine is 1.36. Hemoglobin is 9.6. As mentioned earlier, Cardiology also observed some pauses on the rhythm strip and made some adjustments in medication. Patient improved significantly. The patient will be discharged home in stable condition with guarded prognosis with the following advice and medications: 1. Diet is cardiac. 2. Activity limited until followup. 3. Follow up with Dr. Dockery in 2 to 3 days. 4. Follow up with Dr. Lawrence and [facility], as mentioned earlier. 5. Tylenol 500 mg t.i.d. p.r.n. 6. Lipitor 40 mg at bedtime. 7. Ceftin 500 mg p.o. b.i.d. for 5 days. 8. Vitamin D 3000 daily. 9. Iron sulfate 325 mg p.o. daily. 10. Lasix 40 mg p.o. daily. 11. Amaryl 4 mg p.o. b.i.d. 12. Humalog scale as before. 13. Lantus 22 units subcutaneously at bedtime. 14. Lopressor 12.5 mg b.i.d. 15. Multivitamins 1 p.o. daily. 16. [place]-3 fatty acids 1000 mg daily. 17. Silver sulfadiazine cream for local application. 18. Coenzyme Q 100 mg p.o. daily. 19. Norvasc 5 mg p.o. b.i.d. 20. Ultracet 1 tablet p.o. b.i.d. p.r.n. Once again, the patient will be discharged in stable condition with guarded prognosis.
== END 2016-07-28 14:34 | disposition home or self-care (01) | DRG 690 ==
LOC: EC 21:28 → 4MS4W 23:49
PROVIDERS: ADMIT Internal Medicine; ATTEND Internal Medicine
PROC: 30230N1 Transfusion of Nonautologous Red Blood Cells into Peripheral Vein, Open Approach (ICD-10-PCS; principal; 2016-07-25)
DX: N30.01 Acute cystitis with hematuria (principal); E44.0 Moderate protein-calorie malnutrition; D62 Acute posthemorrhagic anemia; I13.0 Hypertensive heart and chronic kidney disease with heart failure and stage 1 through stage 4 chronic kidney disease, or unspecified chronic kidney disease; E11.22 Type 2 diabetes mellitus with diabetic chronic kidney disease; I27.2 Other secondary pulmonary hypertension; I49.5 Sick sinus syndrome; I48.2 Chronic atrial fibrillation; I50.9 Heart failure, unspecified; B96.20 Unspecified Escherichia coli [E. coli] as the cause of diseases classified elsewhere; D53.9 Nutritional anemia, unspecified; E78.5 Hyperlipidemia, unspecified; I25.10 Atherosclerotic heart disease of native coronary artery without angina pectoris; M19.90 Unspecified osteoarthritis, unspecified site; N18.3 Chronic kidney disease, stage 3 (moderate); T45.515A Adverse effect of anticoagulants, initial encounter; R79.89 Other specified abnormal findings of blood chemistry; Z79.01 Long term (current) use of anticoagulants; Z79.4 Long term (current) use of insulin; Z79.899 Other long term (current) drug therapy; Z79.82 Long term (current) use of aspirin; Z95.1 Presence of aortocoronary bypass graft; Z95.5 Presence of coronary angioplasty implant and graft; Z88.5 Allergy status to narcotic agent; Z88.7 Allergy status to serum and vaccine; Z88.8 Allergy status to other drugs, medicaments and biological substances; Z68.30 Body mass index [BMI] 30.0-30.9, adult
CPT/HCPCS: 36415; 51702; 74176; 80048; 80053; 80162; 81001; 82272; 83036; 85025; 85027; 85610; 86850; 86900; 86901; 86920; 87040; 87077; 87086; 87186; 99284

== ENCOUNTER 2017-01-18 12:12 | Inpatient (IN) | payer MEDICARE ==
[2017-01-18] MEDS ORDERED: FUROSEMIDE 10 MG/ML 10 ML VIAL IV STA (12:44)
[2017-01-18] MEDS ORDERED: NITROGLYCERIN OINT 1 INCH/GM PACKET TOPICAL STA (12:44)
--- NOTE | 2017-01-18 12:49 | ED ---
General Adult HPI - General Chief complaint: Shortness of Breath Stated complaint: Difficulty Breathing CA Patient Time Seen by Provider: 01/18/17 12:30 Source: patient, family, RN notes reviewed Mode of arrival: wheelchair Limitations: no limitations - History of Present Illness Initial comments: This is an 89-year-old female presents emergency Department complaining that she has difficulty breathing. It has gotten worse over the last few days. Patient states she's been battling peripheral edema with increasing doses of Lasix but does not appear to be working. Her legs are weeping bilaterally but worse in the left leg. The left foot also has gotten more erythematous and they 've treated multiple times with Keflex but it only helps temporarily. Patient denies any chest pain or palpitations. Patient denies any fever chills or cough. Patient states the breathing is much worse with exertion. Patient denies any abdominal pain patient denies nausea vomiting diarrhea. Patient denies any lightheadedness or dizziness. - Related Data Home Medications Medication Instructions Recorded Confirmed Cholecalciferol [Vitamin D3] 1,000 unit PO DAILY 12/21/14 01/18/17 Ferrous Sulfate [Iron (65 MG 325 mg PO DAILY 12/21/14 01/18/17 Elemental)] Furosemide [Lasix] 40 - 80 mg PO DAILY 12/21/14 01/18/17 Glimepiride [Amaryl] 4 mg PO BID@0730,1630 12/21/14 01/18/17 Insulin Glargine [Lantus] 22 unit SQ HS 12/21/14 01/18/17 [place]-3 Fatty Acids [[place]-3] 1,000 mg PO DAILY 12/21/14 01/18/17 Multivitamins, Thera [Multivitamin 1 tab PO DAILY 12/22/14 01/18/17 (formulary)] traMADol-ACETAMINOP 37.5-325MG 1 tab PO BID@0900,2100 12/22/14 01/18/17 [Ultracet] Atorvastatin Calcium [Lipitor] 40 mg PO HS 07/24/16 01/18/17 INSULIN LISPRO (humaLOG) [humaLOG See Protocol SQ AC-TID 07/24/16 01/18/17 (formulary)] SILVER sulfADIAZINE CREAM 1 applic TOPICAL Q4H 07/24/16 01/18/17 [Silvadene Cream] Ubidecarenone [Co Q-10] 100 mg PO DAILY 07/24/16 01/18/17 Aspirin 325 mg PO DAILY@1200 01/18/17 01/18/17 Metoprolol Tartrate [Lopressor] 25 mg PO TID 01/18/17 01/18/17 Previous Rx's Medication Instructions Recorded amLODIPine [Norvasc] 5 mg PO BID #60 tab 07/28/16 Allergies Allergy/AdvReac Type Severity Reaction Status Date / Time rofecoxib [From Vioxx] AdvReac Severe Chest Pain Verified 01/18/17 13:06 codeine AdvReac Vision Verified 01/18/17 13:06 Disturbance Egg Derived AdvReac Nausea & Verified 01/18/17 13:06 Vomiting & Diarrhea enoxaparin sodium AdvReac Kidney Verified 01/18/17 13:06 [From Lovenox] Failure Influenza Virus Vaccines AdvReac Nausea & Verified 01/18/17 13:06 Vomiting & Diarrhea isosorbide mononitrate AdvReac Vertigo Verified 01/18/17 13:06 [From Imdur] monosodium glutamate AdvReac Diarrhea Verified 01/18/17 13:06 pneumococcal vaccine AdvReac Nausea & Verified 01/18/17 13:06 Vomiting & Diarrhea Review of Systems ROS Statement: Those systems with pertinent positive or pertinent negative responses have been documented in the HPI. ROS Other: All systems not noted in ROS Statement are negative. Past Medical History Past Medical History: Atrial Fibrillation, Coronary Artery Disease (CAD), CVA/ TIA, Diabetes Mellitus, Hyperlipidemia, Hypertension, Osteoarthritis (OA), Renal Disease Additional Past Medical History / Comment(s): CHF, pulmo HTN History of Any Multi-Drug Resistant Organisms: None Reported Past Surgical History: Appendectomy, Cholecystectomy, Coronary Bypass/CABG, Heart Catheterization With Stent, Tonsillectomy Additional Past Surgical History / Comment(s): Bilateral cataract removal, breast biopsy negative. Past Anesthesia/Blood Transfusion Reactions: No Reported Reaction Date of Last Stent Placement:: 2012 Past Psychological History: No Psychological Hx Reported Smoking Status: Never smoker Past Alcohol Use History: None Reported Past Drug Use History: None Reported - Past Family History Mother Additional Family Medical History / Comment(s): Brain Tumor General Exam - General Exam Comments Initial Comments: GENERAL: Patient is well-developed and well-nourished. Patient is nontoxic and well- hydrated and is in mild distress. ENT: Neck is soft and supple. No significant lymphadenopathy is noted. Oropharynx is clear. Moist mucous membranes. Neck has full range of motion without eliciting any pain. EYES: The sclera were anicteric and conjunctiva were pink and moist. Extraocular movements were intact and pupils were equal round and reactive to light. Eyelids were unremarkable. PULMONARY: Crackles bilateral bases with moderate respiratory distress CARDIOVASCULAR: There is a regular rate and rhythm without any murmurs gallops or rubs. ABDOMEN: Soft and nontender with normal bowel sounds. No palpable organomegaly was noted. There is no palpable pulsatile mass. SKIN: Skin is clear with no lesions or rashes and otherwise unremarkable. NEUROLOGIC: Patient is alert and oriented x3. Cranial nerves II through XII are grossly intact. Motor and sensory are also intact. Normal speech, volume and content. Symmetrical smile. MUSCULOSKELETAL: Normal extremities with adequate strength and full range of motion. Patient has 2+ edema bilaterally with the left leg being larger than the right and left leg is very erythematous which has been an issue off and on over the last few weeks. LYMPHATICS: No significant lymphadenopathy is noted PSYCHIATRIC: Normal psychiatric evaluation. Normal interpersonal interactions appears functionally intact in deals appropriately with others. No signs of depression. No signs of anxiety. Limitations: no limitations Course Vital Signs 01/18/17 01/18/17 01/18/17 12:15 13:04 13:15 Temperature 97.4 F L Pulse Rate 105 H 84 Respiratory 28 H 20 20 Rate Blood Pressure 181/76 158/88 O2 Sat by Pulse 96 99 Oximetry 01/18/17 01/18/17 13:48 15:06 Temperature Pulse Rate 79 63 Respiratory 18 20 Rate Blood Pressure 145/77 145/109 O2 Sat by Pulse 99 99 Oximetry Medical Decision Making - Medical Decision Making EKG shows atrial fibrillation with rapid ventricular response at 102 bpm QRS is 136 QT interval 320 QTC is 470 per patient's EKG shows no ST segment elevation or depression. Patient does have some inverted T waves in the inferior leads. I gave the patient Lasix and Nitropaste. Chest x-ray shows congestive heart failure. I will admit the [facility]. I will consult cardiology. I continue the Lasix Nitropaste on the floor. - Lab Data Result diagrams: 01/18/17 13:02 01/18/17 13:02 Lab Results 01/18/17 01/18/17 01/18/17 Range/Units 13:02 13:02 13:02 WBC 10.5 (3.8-10.6) k/uL RBC 4.48 (3.80-5.40) m/uL Hgb 12.4 (11.4-16.0) gm/dL Hct 40.8 (34.0-46.0) % MCV 91.0 (80.0-100.0) fL MCH 27.7 (25.0-35.0) pg MCHC 30.4 L (31.0-37.0) g/dL RDW 17.2 H (11.5-15.5) % Plt Count 191 (150-450) k/uL Neutrophils % 84 % Lymphocytes % 8 % Monocytes % 5 % Eosinophils % 3 % Basophils % 0 % Neutrophils # 8.8 H (1.3-7.7) k/uL Lymphocytes # 0.8 L (1.0-4.8) k/uL Monocytes # 0.5 (0-1.0) k/uL Eosinophils # 0.3 (0-0.7) k/uL Basophils # 0.0 (0-0.2) k/uL Hypochromasia Moderate Anisocytosis Slight PT (9.0-12.0) sec INR (<1.2) APTT (22.0-30.0) sec Sodium 139 (137-145) mmol/L Potassium 5.8 H (3.5-5.1) mmol/L Chloride 106 (98-107) mmol/L Carbon Dioxide 24 (22-30) mmol/L Anion Gap 9 mmol/L BUN 41 H (7-17) mg/dL Creatinine 1.70 H (0.52-1.04) mg/dL Est GFR (MDRD) Af Amer 34 (>60 ml/min/1.73 sqM) Est GFR (MDRD) Non-Af 28 (>60 ml/min/1.73 sqM) Glucose 99 (74-99) mg/dL Plasma Lactic Acid Quinten (0.7-2.0) mmol/L Calcium 9.1 (8.4-10.2) mg/dL Magnesium 2.4 H (1.6-2.3) mg/dL Total Bilirubin 0.7 (0.2-1.3) mg/dL AST 46 H (14-36) U/L ALT 46 (9-52) U/L Alkaline Phosphatase 147 H (38-126) U/L Total Creatine Kinase 148 H (30-135) U/L CK-MB (CK-2) 1.6 (0.0-2.4) ng/mL CK-MB (CK-2) Rel Index 1.1 Troponin I <0.012 (0.000-0.034) ng/mL NT-Pro-B Natriuret Pep pg/mL Total Protein 6.9 (6.3-8.2) g/dL Albumin 3.6 (3.5-5.0) g/dL 01/18/17 01/18/17 01/18/17 Range/Units 13:02 13:02 13:02 WBC (3.8-10.6) k/uL RBC (3.80-5.40) m/uL Hgb (11.4-16.0) gm/dL Hct (34.0-46.0) % MCV (80.0-100.0) fL MCH (25.0-35.0) pg MCHC (31.0-37.0) g/dL RDW (11.5-15.5) % Plt Count (150-450) k/uL Neutrophils % % Lymphocytes % % Monocytes % % Eosinophils % % Basophils % % Neutrophils # (1.3-7.7) k/uL Lymphocytes # (1.0-4.8) k/uL Monocytes # (0-1.0) k/uL Eosinophils # (0-0.7) k/uL Basophils # (0-0.2) k/uL Hypochromasia Anisocytosis PT 11.9 (9.0-12.0) sec INR 1.2 H (<1.2) APTT 26.6 (22.0-30.0) sec Sodium (137-145) mmol/L Potassium (3.5-5.1) mmol/L Chloride (98-107) mmol/L Carbon Dioxide (22-30) mmol/L Anion Gap mmol/L BUN (7-17) mg/dL Creatinine (0.52-1.04) mg/dL Est GFR (MDRD) Af Amer (>60 ml/min/1.73 sqM) Est GFR (MDRD) Non-Af (>60 ml/min/1.73 sqM) Glucose (74-99) mg/dL Plasma Lactic Acid Quinten 1.5 (0.7-2.0) mmol/L Calcium (8.4-10.2) mg/dL Magnesium (1.6-2.3) mg/dL Total Bilirubin (0.2-1.3) mg/dL AST (14-36) U/L ALT (9-52) U/L Alkaline Phosphatase (38-126) U/L Total Creatine Kinase (30-135) U/L CK-MB (CK-2) (0.0-2.4) ng/mL CK-MB (CK-2) Rel Index Troponin I (0.000-0.034) ng/mL NT-Pro-B Natriuret Pep 9760 pg/mL Total Protein (6.3-8.2) g/dL Albumin (3.5-5.0) g/dL Critical Care Time Critical Care Time: Yes Total Critical Care Time: 35 Disposition Clinical Impression: Hyperkalemia, Pulmonary edema, acute Disposition: ADMITTED IP TO THIS HOSP Referrals: Gavin Dockery DO [Primary Care Provider] - 1-2 days Time of Disposition: 15:20
[2017-01-18 13:14] LABS: Anisocytosis Slight; Basophils % (A) 0 %; CH 27.6; CHCM 30.6; Eosinophils # (A) 0.3 k/uL (0-0.7); Eosinophils % (A) 3 %; HCT 40.8 % (34.0-46.0); HDW 2.74; HGB 12.4 gm/dL (11.4-16.0); Hypochromasia Moderate; Luc # (Auto) 0.11; Luc % (Auto) 1; Lymphocytes # (A) 0.8 k/uL (1.0-4.8); Lymphocytes % (A) 8 %; MCH 27.7 pg (25.0-35.0); MCHC 30.4 g/dL (31.0-37.0); Mean Platelet Volume 8.8; Monocytes # (A) 0.5 k/uL (0-1.0); Monocytes % (A) 5 %; Neutrophils # (A) 8.8 k/uL (1.3-7.7); Neutrophils % (A) 84 %; RBC 4.48 m/uL (3.80-5.40); RDW 17.2 % (11.5-15.5); WBC 10.5 k/uL (3.8-10.6); WBC (Perox) 11.16
[2017-01-18 13:24] LABS: Calcium 9.1 mg/dL (8.4-10.2); Magnesium 2.4 mg/dL (1.6-2.3); Potassium 5.8 mmol/L (3.5-5.1); Total Bilirubin 0.7 mg/dL (0.2-1.3); Total Protein 6.9 g/dL (6.3-8.2)
[2017-01-18 13:43] LABS: Creatine Kinase 148 U/L (30-135)
[2017-01-18 13:46] LABS: INR 1.2 (<1.2); Partial Thromboplastin Time 26.6 sec (22.0-30.0); Prothrombin Time 11.9 sec (9.0-12.0)
[2017-01-18 13:56] LABS: Creatine Kinase MB 1.6 ng/mL (0.0-2.4); Troponin I <0.012 ng/mL (0.000-0.034)
--- NOTE | 2017-01-18 14:03 | XR ---
EXAMINATION TYPE: XR chest 2V DATE OF EXAM: 01/18/2017 COMPARISON: 06/16/13 HISTORY: Shortness of breath FINDINGS: Noted is pulmonary venous congestion with scattered infiltrates. There is also cardiomegaly and small effusions. IMPRESSION: Findings compatible with congestive failure. Infiltrates of other etiology are not excluded. Clinical correlation and progress studies are recommended.
--- NOTE | 2017-01-18 14:57 | US ---
EXAMINATION TYPE: US venous doppler duplex LE LT DATE OF EXAM: 01/18/2017 2:37 PM COMPARISON: See PACS CLINICAL HISTORY: Pain. SIDE PERFORMED: Left TECHNIQUE: The lower extremity deep venous system is examined utilizing real time linear array sonog aida with graded compression, doppler sonography and color-flow sonography. VESSELS IMAGED: External Iliac Vein (EIV) Common Femoral Vein Deep Femoral Vein Greater Saphenous Vein * Femoral Vein--unable to do compression views mid and distal due to severe edema Popliteal Vein Small Saphenous Vein * Proximal Calf Veins (* superficial vessels) Grayscale, color doppler, spectral doppler imaging performed of the deep veins of the lower extremity . There is normal flow, compressibility, vascular waveforms. Severe pitting weeping edema. Pop fossa cyst measuring 3.0cm IMPRESSION: Left Leg: Negative for DVT, as visualized, limited views.
[2017-01-18] MEDS ORDERED: ASPIRIN 325 MG TAB PO SCH (15:45)
[2017-01-18] MEDS: FUROSEMIDE 10 MG/ML 10 ML VIAL IV SCH ×2 (16:10→22:33)
[2017-01-18] MEDS: SILVER sulfADIAZINE Cream 400 GM 1 APPLIC APPLIC TOPICAL SCH ×2 (18:17→22:32)
[2017-01-18] MEDS: NITROGLYCERIN OINT 1 INCH/GM PACKET TOPICAL SCH ×2 (18:18→22:33)
[2017-01-18] MEDS: ceFAZolin 2 GM in SODIUM CHLORIDE 0.9% 100 ML IVPB SCH (18:21)
--- NOTE | 2017-01-18 19:43 | HP ---
HISTORY AND PHYSICAL CHIEF COMPLAINT: Shortness of breath and bilateral leg swelling and infection. HISTORY OF PRESENT ILLNESS: This 89-year-old woman with a past medical history of multiple medical problems including atrial fibrillation, CAD, diabetes mellitus, hypertension, hyperlipidemia being followed by Dr. Dockery in the patient is complaining of increasing shortness of breath over the past several weeks. The patient also complained of bilateral leg swelling. Silvadene local treatment is applied also. Because of lack of improvement the patient came to [facility] and admitted for evaluation and treatment. A chest x-ray was also done which showed features of CHF. Otherwise a venous ultrasound was also done which showed negative for DVT. There is no history of fever, rigors. No headache, loss of consciousness or seizures. PAST MEDICAL HISTORY: History of atrial ablation, CVA, TIA, diabetes mellitus, hypertension, hyperlipidemia. MEDICATIONS: Prior to admission home medications are: 1. Silvadene cream. 2. Lopressor 25 mg b.i.d. 3. Lasix 40-80 mg. Dose is being increased. 4. Aspirin 325 mg daily. 5. Ultracet 1 tab p.o. b.i.d. 6. Norvasc 5 mg p.o. b.i.d. 7. Co-enzyme Q 100 mg. 8. [place]-3 1000 mg. 9. Multivitamin 1 p.o. daily. 10.Lantus 22 subcu q.h.s. 11.Humalog scale. 12.Amaryl 4 mg p.o. b.i.d. 13.Iron sulfate 65 mg. 14.Vitamin D3 1000 daily. 15.Lipitor 40 mg q.h.s. ALLERGIES: VIOXX, CODEINE, EGG, LOVENOX, INFLUENZA, IMDUR, MONOSODIUM GLUCONATE, PNEUMOCOCCAL VACCINE. FAMILY HISTORY: History of brain tumor in the family. SOCIAL HISTORY: History of smoking. No alcohol intake. REVIEW OF SYSTEMS: ENT: Diminished vision, diminished hearing. CARDIOVASCULAR: As mentioned earlier. RESPIRATORY: As mentioned earlier. GI: No nausea, vomiting, diarrhea. : No dysuria. NERVOUS SYSTEM: No numbness. Generalized weakness. ALLERGY/IMMUNOLOGY: No asthma. MUSCULOSKELETAL: As mentioned earlier. HEMATOLOGY: No anemia. ENDOCRINE: As mentioned earlier, diabetes mellitus. CONSTITUTIONAL: As mentioned earlier. DERMATOLOGY: As mentioned earlier. RHEUMATOLOGY: Negative. PSYCHIATRY: As mentioned earlier. PHYSICAL EXAMINATION: Alert, oriented x3. Pulse 79, blood pressure 140/77, respiration 18, temperature 97.9, pulse ox 99% on 2 L. HEENT: Conjunctivae normal. Oral mucosa moist. NECK: No jugular venous distention. No carotid bruit. No lymph node enlargement. CARDIOVASCULAR: S1, S2 muffled. Ejection systolic murmur present. RESPIRATORY: Breath sounds diminished in the bases. A few scattered rhonchi. No crackles. ABDOMEN: Soft, nontender. No mass palpable. LEGS: Bilateral leg edema and varicose appearance and as well as some dry skin and evidence of some cellulitis and redness also present. Pulses cannot be palpated. NERVOUS SYSTEM: Higher function as mentioned earlier. Moves all 4 limbs. No focal motor sensory deficits. LYMPHATICS: No lymphadenopathy in the neck, axillae, or groin. SKIN: Rash as mentioned. LABS: WBC 7.2, hemoglobin 12.4, INR is 1.2. Potassium 5.8 creatinine 7.7. ASSESSMENT: 1. Congestive heart failure acute exacerbation with ejection fraction unknown. 2. Bilateral leg cellulitis and swelling. 3. History atrial fibrillation, chronic. 4. Diabetes mellitus type 2. 5. Hypertension. 6. Hyperlipidemia. 7. History of degenerative joint disease. 8. History of pulmonary hypertension. 9. Coronary artery disease, CABG and stent. RECOMMENDATION AND DISCUSSION: In this 89-year-old woman who presented with multiple complex medical issues. We will monitor the patient closely. Continue the current management and symptomatic treatment. I recommend IV diuretics otherwise cardiology consultation. Monitor blood sugars closely. 2-D echo with Doppler. Guarded prognosis because of multiple complex medical issues. See orders for details. Further recommendations to follow. Copy of the dictation forwarded to Dr. Dockery who is the primary physician. MMODL / IJN: [id number] /
[2017-01-18 20:38] LABS: Hemoglobin A1C 5.8 % (4.2-6.1)
[2017-01-18] MEDS: INSULIN LISPRO (humaLOG) 300 UNIT/3 ML VIAL SQ SCH (20:38)
[2017-01-18 20:43] LABS: Glucose,Whole Blood 58 mg/dL (75-99)
[2017-01-18 20:57] LABS: Glucose,Whole Blood 58 mg/dL (75-99)
[2017-01-18 21:08] LABS: Glucose,Whole Blood 68 mg/dL (75-99)
[2017-01-18] MEDS: INSULIN GLARGINE 100 UNIT/ML 10 ML VIAL SQ SCH ×2 (21:14→22:33)
[2017-01-18] MEDS ORDERED: METOPROLOL TARTRATE 25 MG TAB PO SCH (22:00)
[2017-01-18 22:27] LABS: Appearance,Urine Clear (Clear); Bilirubin,Urine Negative (Negative); Glucose,Urine (UA) Negative (Negative); Ketones,Urine Negative (Negative); Leukocyte Esterase,Urine Negative (Negative); Nitrite,Urine Negative (Negative); Particle Count 234; Protein,Urine Negative (Negative); RBC,Urine 10 /hpf (0-5); Specific Gravity,Urine 1.007 (1.001-1.035); UA Billing (MACRO vs. MICRO) MICRO; Urobilinogen,Urine <2.0 mg/dL (<2.0); WBC,Urine 5 /hpf (0-5)
[2017-01-18] MEDS: METOPROLOL TARTRATE 50 MG TAB PO SCH (22:32)
[2017-01-18] MEDS: ATORVASTATIN 40 MG TAB PO SCH (22:33)
[2017-01-18 22:38] LABS: Glucose,Whole Blood 145 mg/dL (75-99)
[2017-01-18] MEDS: traMADol-ACETAMINOP 37.5-325MG 1 EACH TAB PO SCH (23:07)
[2017-01-19] MEDS: SILVER sulfADIAZINE Cream 400 GM 1 APPLIC APPLIC TOPICAL SCH ×6 (02:09→20:43)
[2017-01-19] MEDS: ceFAZolin 2 GM in SODIUM CHLORIDE 0.9% 100 ML IVPB SCH ×3 (02:13→20:39)
[2017-01-19 05:48] LABS: Glucose,Whole Blood 43 mg/dL (75-99)
[2017-01-19] MEDS: INSULIN LISPRO (humaLOG) 300 UNIT/3 ML VIAL SQ SCH ×4 (05:55→20:40)
[2017-01-19 06:00] LABS: Glucose,Whole Blood 68 mg/dL (75-99)
[2017-01-19 06:34] LABS: Glucose,Whole Blood 71 mg/dL (75-99)
[2017-01-19 07:25] LABS: Potassium 4.7 mmol/L (3.5-5.1); Total Bilirubin 0.5 mg/dL (0.2-1.3); Total Protein 6.2 g/dL (6.3-8.2)
[2017-01-19] MEDS ORDERED: GLIMEPIRIDE 4 MG TAB PO SCH (07:30)
[2017-01-19 08:06] LABS: Anisocytosis Slight; Basophils % (A) 1 %; CH 27.3; CHCM 30.2; Eosinophils # (A) 0.3 k/uL (0-0.7); Eosinophils % (A) 3 %; HCT 36.5 % (34.0-46.0); HDW 2.58; HGB 10.9 gm/dL (11.4-16.0); Hypochromasia Marked; Luc # (Auto) 0.21; Luc % (Auto) 3; Lymphocytes # (A) 0.8 k/uL (1.0-4.8); Lymphocytes % (A) 10 %; MCH 27.2 pg (25.0-35.0); MCHC 29.9 g/dL (31.0-37.0); MCV 91.1 fL (80.0-100.0); Mean Platelet Volume 8.8; Monocytes # (A) 0.6 k/uL (0-1.0); Monocytes % (A) 7 %; Neutrophils % (A) 77 %; RBC 4.01 m/uL (3.80-5.40); WBC 7.8 k/uL (3.8-10.6); WBC (Perox) 8.27
--- NOTE | 2017-01-19 08:49 | ECHOF ---
Referral Reason:chf MEASUREMENTS -------- HEIGHT: 162.6 cm WEIGHT: 91.2 kg BP: 132/71 RVIDd: 3.8 cm (< 3.3) IVSd: 1.2 cm (0.6 - 1.1) LVIDd: 4.2 cm (3.9 - 5.3) LVPWd: 1.3 cm (0.6 - 1.1) IVSs: 2.0 cm LVIDs: 3.4 cm LVPWs: 1.7 cm LA Diam: 4.3 cm (2.7 - 3.8) LAESV Index (A-L): 36.82 ml/m Ao Diam: 3.3 cm (2.0 - 3.7) AV Cusp: 2.0 cm (1.5 - 2.6) MV EXCURSION: 12.495 mm (> 18.000) MV EF SLOPE: 44 mm/s (70 - 150) EPSS: 1.0 cm RAP: 15.00 mmHg RVSP: 69.38 mmHg FINDINGS -------- This was a technically good study. The left ventricular size is normal. There is mild concentric left ventricular hypertrophy. Overall left ventricular systolic function is moderately impaired with, an EF between 35 - 40 %. The right ventricle is mildly enlarged. LA is moderately dilated 34-39 ml/m2 The right atrium is normal in size. There is mild aortic valve sclerosis. The mitral valve leaflets are mildly thickened. Mild mitral annular calcification present. Mild mitral regurgitation is present. Moderate to severe tricuspid regurgitation present. There is severe pulmonary hypertension. The right ventricular systolic pressure, as measured by Doppler, is 69.38mmHg. Moderate pulmonic regurgitation. The aortic root size is normal. The inferior vena cava is dilated with no significant inspiratory collapse which is consistent estimated right atrial pressure of >15 mmHg. There is no pericardial effusion. CONCLUSIONS -------- 1. This was a technically good study. 2. Mild mitral annular calcification present. 3. Mild mitral regurgitation is present. 4. Moderate to severe tricuspid regurgitation present. 5. There is severe pulmonary hypertension. 6. The right ventricular systolic pressure, as measured by Doppler, is 69.38mmHg. 7. Moderate pulmonic regurgitation. 8. The aortic root size is normal. 9. The inferior vena cava is dilated with no significant inspiratory collapse which is consistent estimated right atrial pressure of >15 mmHg. 10. There is no pericardial effusion. 11. The left ventricular size is normal. 12. There is mild concentric left ventricular hypertrophy. 13. Overall left ventricular systolic function is moderately impaired with, an EF between 35 - 40 %. 14. The right ventricle is mildly enlarged. 15. LA is moderately dilated 34-39 ml/m2 16. The right atrium is normal in size. 17. There is mild aortic valve sclerosis. 18. The mitral valve leaflets are mildly thickened. SHOE COVERER: Verena Lee RDCS
[2017-01-19] MEDS: FUROSEMIDE 10 MG/ML 10 ML VIAL IV SCH ×3 (08:52→23:32)
[2017-01-19] MEDS: traMADol-ACETAMINOP 37.5-325MG 1 EACH TAB PO SCH ×2 (08:53→20:44)
[2017-01-19] MEDS: METOPROLOL TARTRATE 50 MG TAB PO SCH ×2 (08:55→20:40)
[2017-01-19] MEDS: NITROGLYCERIN OINT 1 INCH/GM PACKET TOPICAL SCH ×4 (08:55→20:41)
[2017-01-19] MEDS ORDERED: NON-FORMULARY DRUG (Ubidecarenone [Co Q-10] 100 MG) PO SCH (09:00)
[2017-01-19] MEDS ORDERED: NON-FORMULARY DRUG (Omega-3 Fatty Acids [Omega-3] 1,000 MG) PO SCH (09:00)
[2017-01-19 10:46] VITALS: BMI 34.5
--- NOTE | 2017-01-19 11:26 | P.CRDCN ---
History of Present Illness Consult date: 01/19/17 Requesting physician: Christie Solorzano Consult reason: congestive heart failure Chief complaint: Shortness of breath and swelling History of present illness: This is a pleasant 89-year-old female who follows regularly with Dr. Scott in the office. She has a known history of chronic persistent atrial fibrillation, ischemic cardiomyopathy, hypertension, renal insufficiency , hyperlipidemia, diabetes, coronary artery disease with prior bypass surgery in 2001 subsequent to that patient had a stent to the mid PDA in 2009, 's recent heart catheterization was in 2011. Patient also has bladder cancer for which she is currently undergoing chemo therapy. She presents to the hospital with symptoms of progressively worsening shortness of breath as well as significant swelling in her bilateral extremities and abdominal area. Positive PND and orthopnea. She states that this has been present and worsening over the past one month. Because of her issues with her bladder cancer and chemo she delayed coming to the hospital until now. EKG on admission showed atrial fibrillation with a moderately rapid ventricular response. Chest x-ray findings compatible with congestive heart failure. Venous duplex study negative for DVT in the left leg. Echocardiogram with Doppler study was performed which revealed an ejection fraction of 35-40%. Moderate to severe tricuspid regurgitation, severe pulmonary hypertension. Blood pressure on arrival 180/70 with a heart rate of 105, respirations 28, 96% on room air. White blood cell count 10.5, hemoglobin 12.4, platelet count 191, sodium 139, potassium 5.8 on admission, 4.7 this morning. BUN 41 and creatinine 1.7 on admission, 39 and 1.6 this morning. Mag level 2.4. AST 46, ALT 46, alk phos 147, troponin 0.012, BNP level 9760. She was initiated on IV Lasix in the emergency room, weight is down 4 kg from admission. Patient continues to be significantly short of breath, especially after getting up to go to the commode.. Past Medical History Past Medical History: Atrial Fibrillation, Coronary Artery Disease (CAD), Cancer , CVA/TIA, Diabetes Mellitus, Hyperlipidemia, Hypertension, Osteoarthritis (OA) , Renal Disease Additional Past Medical History / Comment(s): CHF, pulmo HTN, bladder cancer( had sx to removed and 6 chemo tx) History of Any Multi-Drug Resistant Organisms: None Reported Past Surgical History: Appendectomy, Cholecystectomy, Coronary Bypass/CABG, Heart Catheterization With Stent, Tonsillectomy Additional Past Surgical History / Comment(s): Bilateral cataract removal, breast biopsy negative. Past Anesthesia/Blood Transfusion Reactions: No Reported Reaction Date of Last Stent Placement:: 2012 Smoking Status: Never smoker - Past Family History Father Additional Family Medical History / Comment(s): alcoholic Mother Additional Family Medical History / Comment(s): Brain Tumor Medications and Allergies Home Medications Medication Instructions Recorded Confirmed Type Cholecalciferol [Vitamin D3] 1,000 unit PO DAILY 12/21/14 01/18/17 History Ferrous Sulfate [Iron (65 MG 325 mg PO DAILY 12/21/14 01/18/17 History Elemental)] Furosemide [Lasix] 40 - 80 mg PO DAILY 12/21/14 01/18/17 History Glimepiride [Amaryl] 4 mg PO BID@0730,1630 12/21/14 01/18/17 History Insulin Glargine [Lantus] 22 unit SQ HS 12/21/14 01/18/17 History [place]-3 Fatty Acids [[place]-3] 1,000 mg PO DAILY 12/21/14 01/18/17 History Multivitamins, Thera [Multivitamin 1 tab PO DAILY 12/22/14 01/18/17 History (formulary)] traMADol-ACETAMINOP 37.5-325MG 1 tab PO BID@0900,2100 12/22/14 01/18/17 History [Ultracet] Atorvastatin Calcium [Lipitor] 40 mg PO HS 07/24/16 01/18/17 History INSULIN LISPRO (humaLOG) [humaLOG See Protocol SQ AC-TID 07/24/16 01/18/17 History (formulary)] SILVER sulfADIAZINE CREAM 1 applic TOPICAL Q4H 07/24/16 01/18/17 History [Silvadene Cream] Ubidecarenone [Co Q-10] 100 mg PO DAILY 07/24/16 01/18/17 History amLODIPine [Norvasc] 5 mg PO BID #60 tab 07/28/16 01/18/17 Rx Aspirin 325 mg PO DAILY@1200 01/18/17 01/18/17 History Metoprolol Tartrate [Lopressor] 25 mg PO TID 01/18/17 01/18/17 History Allergies Allergy/AdvReac Type Severity Reaction Status Date / Time rofecoxib [From Vioxx] AdvReac Severe Chest Pain Verified 01/18/17 13:06 codeine AdvReac Vision Verified 01/18/17 13:06 Disturbance Egg Derived AdvReac Nausea & Verified 01/18/17 13:06 Vomiting & Diarrhea enoxaparin sodium AdvReac Kidney Verified 01/18/17 13:06 [From Lovenox] Failure Influenza Virus Vaccines AdvReac Nausea & Verified 01/18/17 13:06 Vomiting & Diarrhea isosorbide mononitrate AdvReac Vertigo Verified 01/18/17 13:06 [From Imdur] monosodium glutamate AdvReac Diarrhea Verified 01/18/17 13:06 pneumococcal vaccine AdvReac Nausea & Verified 01/18/17 13:06 Vomiting & Diarrhea Physical Exam Vitals: Vital Signs Temp Pulse Pulse Resp BP BP Pulse Ox 01/19/17 08:00 97.6 F 53 L 18 159/95 95 01/19/17 04:00 98.2 F 74 18 132/71 96 01/19/17 00:00 98.1 F 111 H 18 145/88 94 L 01/18/17 20:00 97.7 F 114 H 18 162/85 92 L 01/18/17 19:01 96.8 F L 102 H 18 143/93 96 01/18/17 16:18 97.9 F 88 20 150/88 99 01/18/17 15:06 63 20 145/109 99 01/18/17 13:48 79 18 145/77 99 01/18/17 13:15 20 01/18/17 13:04 84 20 158/88 99 01/18/17 12:15 97.4 F L 105 H 28 H 181/76 96 Intake and Output 01/18/17 01/19/17 01/19/17 22:59 06:59 14:59 Intake Total 400 0 Output Total 1100 1050 Balance -700 -1050 0 Intake: Oral 400 0 Output: Urine 1100 1050 Other: # Voids 1 2 # Bowel Movements 0 Weight 91.3 kg 91.3 kg Patient Weight 01/20/17 06:59 Weight 91.3 kg PHYSICAL EXAMINATION: HEENT: Head is atraumatic, normocephalic. Pupils equal, round. Neck is supple. There is elevated jugular venous pressure. HEART EXAMINATION: S1 and S2 irregularly irregular a systolic murmur is heard. CHEST EXAMINATION: Reveal diminished air entry bilaterally with rales to the bases. ABDOMEN: Soft, obese nontender. Bowel sounds are heard. No organomegaly noted. EXTREMITIES: 1+ peripheral pulses with 1-2+ evidence of peripheral edema and no calf tenderness noted. BiLateral Zac wraps in place NEUROLOGIC patient is awake, alert and oriented -3. . Results 01/19/17 05:57 01/19/17 05:57 Cardiac Enzymes 01/18/17 01/18/17 01/19/17 Range/Units 13:02 13:02 05:57 AST 46 H 42 H (14-36) U/L CK-MB (CK-2) 1.6 (0.0-2.4) ng/mL Troponin I <0.012 (0.000-0.034) ng/mL Coagulation 01/18/17 Range/Units 13:02 PT 11.9 (9.0-12.0) sec APTT 26.6 (22.0-30.0) sec CBC 01/18/17 01/19/17 Range/Units 13:02 05:57 WBC 10.5 7.8 (3.8-10.6) k/uL RBC 4.48 4.01 (3.80-5.40) m/uL Hgb 12.4 10.9 L (11.4-16.0) gm/dL Hct 40.8 36.5 (34.0-46.0) % Plt Count 191 177 (150-450) k/uL Comprehensive Metabolic Panel 01/18/17 01/19/17 Range/Units 13:02 05:57 Sodium 139 141 (137-145) mmol/L Potassium 5.8 H 4.7 (3.5-5.1) mmol/L Chloride 106 106 (98-107) mmol/L Carbon Dioxide 24 23 (22-30) mmol/L BUN 41 H 39 H (7-17) mg/dL Creatinine 1.70 H 1.66 H (0.52-1.04) mg/dL Glucose 99 50 L* (74-99) mg/dL Calcium 9.1 9.0 (8.4-10.2) mg/dL AST 46 H 42 H (14-36) U/L ALT 46 37 (9-52) U/L Alkaline Phosphatase 147 H 127 H (38-126) U/L Total Protein 6.9 6.2 L (6.3-8.2) g/dL Albumin 3.6 3.3 L (3.5-5.0) g/dL Current Medications Generic Name Dose Route Start Last Admin Trade Name Grady PRN Reason Stop Dose Admin Aspirin 325 mg 01/19/17 12:00 Aspirin PO DAILY@1200 [facility] Atorvastatin Calcium 40 mg 01/18/17 21:00 01/18/17 22:33 Lipitor PO 40 mg HS [facility] Administration Cholecalciferol 1,000 unit 01/19/17 12:00 Vitamin D3 PO DAILY@1200 [facility] Furosemide 80 mg 01/18/17 16:00 01/19/17 08:52 Lasix IV 80 mg Q8H [facility] Administration Cefazolin Sodium 2 gm/ Sodium 100 mls @ 100 mls/hr 01/18/17 18:00 01/19/17 08 :53 Chloride IVPB 100 mls/hr Q8HR [facility] Administration Insulin Human Lispro 0 unit 01/18/17 21:00 01/19/17 05:55 Humalog SQ Not Given ACHS [facility] Protocol Metoprolol Tartrate 50 mg 01/18/17 21:00 01/19/17 08:55 Lopressor PO 50 mg BID [facility] Administration Multivitamins 1 each 01/19/17 12:00 Theragran PO 1200 [facility] Nitroglycerin 1 inch 01/18/17 18:00 01/19/17 08:55 Nitro-Bid Oint TOPICAL 1 inch QID [facility] Administration Silver Sulfadiazine 1 applic 01/18/17 18:00 01/19/17 02:10 Silvadene Cream TOPICAL Not Given Q4H [facility] Tramadol/Acetaminophen 1 each 01/18/17 21:00 01/19/17 08:53 Ultracet PO 1 each BID@0900,2100 [facility] Administration Intake and Output 01/18/17 01/19/17 01/19/17 22:59 06:59 14:59 Intake Total 400 0 Output Total 1100 1050 Balance -700 -1050 0 Intake: Oral 400 0 Output: Urine 1100 1050 Other: # Voids 1 2 # Bowel Movements 0 Weight 91.3 kg 91.3 kg Patient Weight 01/20/17 06:59 Weight 91.3 kg 01/19/17 05:57 01/19/17 05:57 EKG Interpretations (text) EKG shows atrial fibrillation with a moderately rapid ventricular response. Assessment and Plan Plan: Assessment and plan #1 systolic congestive heart failure acute on chronic #2 known history of coronary artery disease with prior bypass surgery and stent placement #3 hypertension #4 hyperlipidemia #5 diabetes #6 bladder cancer on chemotherapy #7 chronic persistent atrial fibrillation, patient used to be on Coumadin but because of hematuria from the bladder cancer this had been discontinued. Plan Echocardiogram with Doppler study was performed which revealed an ejection fraction of 35-40%, moderate to severe tricuspid regurg and severe pulmonary hypertension. Decrease aspirin 81 mg daily, continue current dose of IV Lasix, continue a beta jemal. Consider the addition of an ZAC inhibitor, monitoring renal function and potassium closely. Further recommendations to follow. DNP note has been reviewed, I agree with a documented findings and plan of care. Patient was seen and examined.
[2017-01-19] MEDS ORDERED: ASPIRIN 325 MG TAB PO SCH (12:00)
[2017-01-19 12:11] LABS: Glucose,Whole Blood 44 mg/dL (75-99)
[2017-01-19 12:15] LABS: Glucose,Whole Blood 51 mg/dL (75-99)
[2017-01-19] MEDS: CHOLECALCIFEROL 1,000 UNIT TAB PO SCH (12:22)
[2017-01-19] MEDS: MULTIVITAMINS, THERA 1 EACH TAB PO SCH (12:22)
[2017-01-19] MEDS: DEXTROSE 5% IN WATER 1,000 ML IV SCH (12:30)
[2017-01-19 12:45] LABS: Glucose,Whole Blood 55 mg/dL (75-99)
--- NOTE | 2017-01-19 12:56 | XR ---
EXAMINATION TYPE: XR chest 1V portable DATE OF EXAM: 01/19/2017 COMPARISON: Prior chest x-ray 01/18/2017 HISTORY: Congestive heart failure TECHNIQUE: Single frontal view of the chest is obtained. FINDINGS: Heart is enlarged, patient is post median sternotomy. Interstitium and central vascularity are prominent. No pneumothorax. Basilar increased density is noted. IMPRESSION: Findings compatible with congestive heart failure, there are likely small pleural effusi ons.
[2017-01-19 14:40] LABS: Glucose,Whole Blood 131 mg/dL (75-99)
[2017-01-19 16:32] LABS: Glucose,Whole Blood 98 mg/dL (75-99)
--- NOTE | 2017-01-19 16:54 | P.PN ---
Subjective Progress Note Date: 01/19/17 Progress note being dictated for Dr. Solorzano. Interval history: This is a 89-year-old female admitted with acute CHF exacerbation, bilateral leg cellulitis, chronic persistent atrial fibrillation and multiple other medical issues. Chest x-ray compatible with CHF, basilar density increased. Diuresing well on Lasix IV push with 24-hour I&O reflecting a negative fluid balance. Maintained on nebulized bronchodilators, IV diuretics with breathing and edema improving. Hypoglycemic and currently receiving IV dextrose 5%. Good diet intake. Denies chest pain, palpitations. Review of systems: CONSTITUTIONAL: No fever, no malaise, complains of fatigue. HEENT: No recent visual problems or hearing problems. Denied any sore throat. CARDIOVASCULAR: No chest pain, c/o orthopnea, PND, no palpitations, no syncope. PULMONARY: Positive shortness of breath, no cough, no hemoptysis. GASTROINTESTINAL: No diarrhea, no nausea, no vomiting, no abdominal pain. Normoactive bowel sounds. NEUROLOGICAL: No headaches, generalized weakness, no numbness. HEMATOLOGICAL: Denies any bleeding or petechiae. GENITOURINARY: Denies any burning micturition, frequency, or urgency. MUSCULOSKELETAL/RHEUMATOLOGICAL: Denies any joint pain, positive swelling, ENDOCRINE: Denies any polyuria or polydipsia. PSYCHIATRIC: No anxiety, no depression The rest of the 14 point review of systems is negative Active Medications Aspirin (Aspirin) 81 mg PO DAILY [facility] Atorvastatin Calcium (Lipitor) 40 mg PO HS [facility] Last Admin: 01/18/17 22:33 Dose: 40 mg Cholecalciferol (Vitamin D3) 1,000 unit PO DAILY@1200 [facility] Last Admin: 01/19/17 12:22 Dose: 1,000 unit Furosemide (Lasix) 80 mg IV Q8H [facility] Last Admin: 01/19/17 08:52 Dose: 80 mg Dextrose/Water (Dextrose 5%-Water Iv Soln) 1,000 mls @ 30 mls/hr IV .Q24H [facility] Last Admin: 01/19/17 12:30 Dose: 30 mls/hr Cefazolin Sodium 2 gm/ Sodium (Chloride) 100 mls @ 100 mls/hr IVPB Q12HR [facility] Insulin Human Lispro (Humalog) 0 unit SQ ACHS [facility] PRN Reason: Protocol Last Admin: 01/19/17 12:23 Dose: Not Given Metoprolol Tartrate (Lopressor) 50 mg PO BID [facility] Last Admin: 01/19/17 08:55 Dose: 50 mg Multivitamins (Theragran) 1 each PO 1200 [facility] Last Admin: 01/19/17 12:22 Dose: 1 each Nitroglycerin (Nitro-Bid Oint) 1 inch TOPICAL QID [facility] Last Admin: 01/19/17 12:22 Dose: Not Given Silver Sulfadiazine (Silvadene Cream) 1 applic TOPICAL Q4H [facility] Last Admin: 01/19/17 12:24 Dose: 1 applic Tramadol/Acetaminophen (Ultracet) 1 each PO BID@0900,2100 [facility] Last Admin: 01/19/17 08:53 Dose: 1 each Objective - Vital Signs Vital signs: Vital Signs Temp 97.6 F 01/19/17 08:00 Pulse 53 L 01/19/17 08:00 Resp 18 01/19/17 08:00 BP 159/95 01/19/17 08:00 Pulse Ox 95 01/19/17 08:00 Intake & Output 01/18/17 01/19/17 01/19/17 18:59 06:59 18:59 Intake Total 400 0 Output Total 2150 Balance -1750 0 Weight 95.254 kg 91.3 kg 91.3 kg Intake: Oral 400 0 Output: Urine 2150 Other: # Voids 0 2 # Bowel Movements 0 - Exam PHYSICAL EXAM: VITAL SIGNS: As above GENERAL: Sitting up in bed, respiratory effort increased HEENT: Conjunctivae normal. eyes normal. Oral mucosa moist. NECK: No JVD. No thyroid enlargement. No LNs CARDIOVASCULAR: S1, S2 muffled. Positive systolic murmur. RESPIRATION: Breath sounds diminished in the bases. Scattered rhonchi, no crackles. ABDOMEN: Soft, nontender . No guarding. no masses palpable. .Bowel sounds heard. LEGS: Bilateral lower extremities Zac wraps, clean dry and intact. Bilateral lower extremity swelling. PSYCHIATRY: Alert and oriented -3, mood and affect normal. NERVOUS SYSTEM: Cranial N 2-12 grossly normal. Moves all 4 limbs. Diffuse weakness No focal deficits. No sensory deficit. Skin: Rash as previously mentioned - Labs CBC & Chem 7: 01/19/17 05:57 01/19/17 05:57 Labs: Abnormal Lab Results - Last 24 Hours (Table) 01/18/17 01/18/17 01/18/17 Range/Units 13:02 13:02 13:02 Hgb (11.4-16.0) gm/dL MCHC 30.4 L (31.0-37.0) g/dL RDW 17.2 H (11.5-15.5) % Neutrophils # 8.8 H (1.3-7.7) k/uL Lymphocytes # 0.8 L (1.0-4.8) k/uL INR (<1.2) Potassium 5.8 H (3.5-5.1) mmol/L BUN 41 H (7-17) mg/dL Creatinine 1.70 H (0.52-1.04) mg/dL Glucose (74-99) mg/dL POC Glucose (mg/dL) (75-99) mg/dL Magnesium 2.4 H (1.6-2.3) mg/dL AST 46 H (14-36) U/L Alkaline Phosphatase 147 H (38-126) U/L Total Creatine Kinase 148 H (30-135) U/L Total Protein (6.3-8.2) g/dL Albumin (3.5-5.0) g/dL Urine Blood (Negative) Urine RBC (0-5) /hpf 01/18/17 01/18/17 01/18/17 Range/Units 13:02 19:12 20:36 Hgb (11.4-16.0) gm/dL MCHC (31.0-37.0) g/dL RDW (11.5-15.5) % Neutrophils # (1.3-7.7) k/uL Lymphocytes # (1.0-4.8) k/uL INR 1.2 H (<1.2) Potassium (3.5-5.1) mmol/L BUN (7-17) mg/dL Creatinine (0.52-1.04) mg/dL Glucose (74-99) mg/dL POC Glucose (mg/dL) 58 L (75-99) mg/dL Magnesium (1.6-2.3) mg/dL AST (14-36) U/L Alkaline Phosphatase (38-126) U/L Total Creatine Kinase (30-135) U/L Total Protein (6.3-8.2) g/dL Albumin (3.5-5.0) g/dL Urine Blood Small H (Negative) Urine RBC 10 H (0-5) /hpf 01/18/17 01/18/17 01/18/17 Range/Units 20:53 21:05 22:26 Hgb (11.4-16.0) gm/dL MCHC (31.0-37.0) g/dL RDW (11.5-15.5) % Neutrophils # (1.3-7.7) k/uL Lymphocytes # (1.0-4.8) k/uL INR (<1.2) Potassium (3.5-5.1) mmol/L BUN (7-17) mg/dL Creatinine (0.52-1.04) mg/dL Glucose (74-99) mg/dL POC Glucose (mg/dL) 58 L 68 L 145 H (75-99) mg/dL Magnesium (1.6-2.3) mg/dL AST (14-36) U/L Alkaline Phosphatase (38-126) U/L Total Creatine Kinase (30-135) U/L Total Protein (6.3-8.2) g/dL Albumin (3.5-5.0) g/dL Urine Blood (Negative) Urine RBC (0-5) /hpf 01/19/17 01/19/17 01/19/17 Range/Units 05:35 05:57 05:57 Hgb 10.9 L (11.4-16.0) gm/dL MCHC 29.9 L (31.0-37.0) g/dL RDW 17.0 H (11.5-15.5) % Neutrophils # (1.3-7.7) k/uL Lymphocytes # 0.8 L (1.0-4.8) k/uL INR (<1.2) Potassium (3.5-5.1) mmol/L BUN 39 H (7-17) mg/dL Creatinine 1.66 H (0.52-1.04) mg/dL Glucose 50 L* (74-99) mg/dL POC Glucose (mg/dL) 43 L (75-99) mg/dL Magnesium (1.6-2.3) mg/dL AST 42 H (14-36) U/L Alkaline Phosphatase 127 H (38-126) U/L Total Creatine Kinase (30-135) U/L Total Protein 6.2 L (6.3-8.2) g/dL Albumin 3.3 L (3.5-5.0) g/dL Urine Blood (Negative) Urine RBC (0-5) /hpf 01/19/17 01/19/17 01/19/17 Range/Units 05:59 06:25 11:58 Hgb (11.4-16.0) gm/dL MCHC (31.0-37.0) g/dL RDW (11.5-15.5) % Neutrophils # (1.3-7.7) k/uL Lymphocytes # (1.0-4.8) k/uL INR (<1.2) Potassium (3.5-5.1) mmol/L BUN (7-17) mg/dL Creatinine (0.52-1.04) mg/dL Glucose (74-99) mg/dL POC Glucose (mg/dL) 68 L 71 L 44 L (75-99) mg/dL Magnesium (1.6-2.3) mg/dL AST (14-36) U/L Alkaline Phosphatase (38-126) U/L Total Creatine Kinase (30-135) U/L Total Protein (6.3-8.2) g/dL Albumin (3.5-5.0) g/dL Urine Blood (Negative) Urine RBC (0-5) /hpf 01/19/17 Range/Units 12:13 Hgb (11.4-16.0) gm/dL MCHC (31.0-37.0) g/dL RDW (11.5-15.5) % Neutrophils # (1.3-7.7) k/uL Lymphocytes # (1.0-4.8) k/uL INR (<1.2) Potassium (3.5-5.1) mmol/L BUN (7-17) mg/dL Creatinine (0.52-1.04) mg/dL Glucose (74-99) mg/dL POC Glucose (mg/dL) 51 L (75-99) mg/dL Magnesium (1.6-2.3) mg/dL AST (14-36) U/L Alkaline Phosphatase (38-126) U/L Total Creatine Kinase (30-135) U/L Total Protein (6.3-8.2) g/dL Albumin (3.5-5.0) g/dL Urine Blood (Negative) Urine RBC (0-5) /hpf Assessment and Plan Plan: 1. [ Shortness of breath, multifactorial; Acute exacerbation CHF, systolic dysfunction EF 35-40%]. Moderate to Severe tricuspid regurgitation, severe pulmonary hypertension. 2. [ Bilateral leg cellulitis]. 3. [ Chronic persistent atrial fibrillation]. 4. [ Diabetes mellitus type 2]. 5. [ CAD]. Plan: Continue on current medication regime , beta jemal, diuretics monitoring and symptomatic treatment. Chest x-ray suggestive of increasing basilar density -Maintain Lasix IV push, Echo reporting severe pulmonary hypertension, moderate to severe tricuspid regurg with EF of 35-40% .creatinine mildly improved, close monitoring of renal function, electrolytes with repeat labs ordered for a.m. hypoglycemic ,close monitoring of Accu-Cheks every 2 hours ; currently receiving IV 5% dextrose.Further recommendations to follow. The impression and plan of care has been dictated as directed. : I performed a history and examination of this patient, discussed the same with the dictator. I agree with the dictator's note ,documented as a scribe. Any additional findings or plans will be noted.
[2017-01-19 18:05] LABS: Glucose,Whole Blood 90 mg/dL (75-99)
[2017-01-19 19:50] LABS: Glucose,Whole Blood 101 mg/dL (75-99)
[2017-01-19] MEDS: ATORVASTATIN 40 MG TAB PO SCH (20:39)
[2017-01-19 22:00] LABS: Glucose,Whole Blood 115 mg/dL (75-99)
[2017-01-19 23:56] LABS: Glucose,Whole Blood 114 mg/dL (75-99)
[2017-01-20 01:54] LABS: Glucose,Whole Blood 78 mg/dL (75-99)
[2017-01-20] MEDS: SILVER sulfADIAZINE Cream 400 GM 1 APPLIC APPLIC TOPICAL SCH ×6 (03:13→20:51)
[2017-01-20 03:58] LABS: Glucose,Whole Blood 120 mg/dL (75-99)
[2017-01-20] MEDS: INSULIN LISPRO (humaLOG) 300 UNIT/3 ML VIAL SQ SCH ×4 (06:11→21:16)
[2017-01-20 06:20] LABS: Glucose,Whole Blood 86 mg/dL (75-99)
[2017-01-20 06:24] LABS: Anisocytosis Slight; Basophils # (A) 0.1 k/uL (0-0.2); Basophils % (A) 1 %; CH 27.8; CHCM 30.6; Eosinophils # (A) 0.5 k/uL (0-0.7); Eosinophils % (A) 9 %; HCT 37.6 % (34.0-46.0); HDW 2.62; HGB 11.1 gm/dL (11.4-16.0); Hypochromasia Moderate; Luc # (Auto) 0.17; Luc % (Auto) 3; Lymphocytes # (A) 0.8 k/uL (1.0-4.8); Lymphocytes % (A) 14 %; MCHC 29.5 g/dL (31.0-37.0); MCV 91.4 fL (80.0-100.0); Mean Platelet Volume 8.6; Monocytes # (A) 0.5 k/uL (0-1.0); Monocytes % (A) 9 %; Neutrophils # (A) 3.8 k/uL (1.3-7.7); Neutrophils % (A) 65 %; RBC 4.12 m/uL (3.80-5.40); RDW 17.2 % (11.5-15.5); WBC 5.8 k/uL (3.8-10.6); WBC (Perox) 6.36
[2017-01-20 06:51] LABS: Calcium 9.1 mg/dL (8.4-10.2); Potassium 4.2 mmol/L (3.5-5.1); Total Bilirubin 0.4 mg/dL (0.2-1.3); Total Protein 6.4 g/dL (6.3-8.2)
[2017-01-20 08:38] LABS: Glucose,Whole Blood 138 mg/dL (75-99)
[2017-01-20] MEDS: traMADol-ACETAMINOP 37.5-325MG 1 EACH TAB PO SCH ×2 (10:21→20:55)
[2017-01-20] MEDS: NITROGLYCERIN OINT 1 INCH/GM PACKET TOPICAL SCH ×2 (10:22→12:28)
[2017-01-20] MEDS: FUROSEMIDE 10 MG/ML 10 ML VIAL IV SCH ×3 (10:22→23:15)
[2017-01-20] MEDS: METOPROLOL TARTRATE 50 MG TAB PO SCH ×2 (10:23→20:49)
[2017-01-20] MEDS: CHOLECALCIFEROL 1,000 UNIT TAB PO SCH (10:23)
[2017-01-20] MEDS: MULTIVITAMINS, THERA 1 EACH TAB PO SCH (10:23)
[2017-01-20] MEDS: ASPIRIN 81 MG PO SCH (10:26)
[2017-01-20 11:26] LABS: Glucose,Whole Blood 138 mg/dL (75-99)
[2017-01-20 11:29] LABS: Glucose,Whole Blood 147 mg/dL (75-99)
[2017-01-20] MEDS: ceFAZolin 2 GM in SODIUM CHLORIDE 0.9% 100 ML IVPB SCH ×2 (12:27→20:55)
--- NOTE | 2017-01-20 13:02 | P.PN ---
Subjective Progress Note Date: 01/20/17 Principal diagnosis: Shortness of breath This is a pleasant 89-year-old female who follows regularly with Dr. Scott in the office. She has a known history of chronic persistent atrial fibrillation, ischemic cardiomyopathy, hypertension, renal insufficiency , hyperlipidemia, diabetes, coronary artery disease with prior bypass surgery in 2001 subsequent to that patient had a stent to the mid PDA in 2009, 's recent heart catheterization was in 2011. Patient also has bladder cancer for which she is currently undergoing chemo therapy. She presents to the hospital with symptoms of progressively worsening shortness of breath as well as significant swelling in her bilateral extremities and abdominal area. Positive PND and orthopnea. She states that this has been present and worsening over the past one month. Because of her issues with her bladder cancer and chemo she delayed coming to the hospital until now. EKG on admission showed atrial fibrillation with a moderately rapid ventricular response. Chest x-ray findings compatible with congestive heart failure. Venous duplex study negative for DVT in the left leg. Echocardiogram with Doppler study was performed which revealed an ejection fraction of 35-40%. Moderate to severe tricuspid regurgitation, severe pulmonary hypertension. Blood pressure on arrival 180/70 with a heart rate of 105, respirations 28, 96% on room air. White blood cell count 10.5, hemoglobin 12.4, platelet count 191, sodium 139, potassium 5.8 on admission, 4.7 this morning. BUN 41 and creatinine 1.7 on admission, 39 and 1.6 this morning. Mag level 2.4. AST 46, ALT 46, alk phos 147, troponin 0.012, BNP level 9760. She was initiated on IV Lasix in the emergency room, weight is down 4 kg from admission. Patient continues to be significantly short of breath, especially after getting up to go to the commode.. 01/20/2017 Patient seen and examined this morning, still appears quite short of breath however states that her breathing is significantly improved. Her weight today is down 2 kg, continues to diurese very well. Creatinine 1.6 today. Blood pressure 138/70. Objective - Vital Signs Vital signs: Vital Signs Temp 97.2 F L 01/20/17 08:00 Pulse 90 01/20/17 08:00 Resp 18 01/20/17 08:00 BP 138/72 01/20/17 08:00 Pulse Ox 93 L 01/20/17 08:00 Intake & Output 01/19/17 01/20/17 01/20/17 18:59 06:59 18:59 Intake Total 740 180 Output Total 2400 Balance 740 -2400 180 Weight 91.3 kg 89.584 kg Intake: Oral 740 180 Output: Urine 2400 Other: # Voids 1 # Bowel Movements 0 - Exam PHYSICAL EXAMINATION: HEENT: Head is atraumatic, normocephalic. Pupils equal, round. Neck is supple. There is elevated jugular venous pressure. HEART EXAMINATION: S1 and S2 irregularly irregular a systolic murmur is heard. CHEST EXAMINATION: Reveal diminished air entry bilaterally with rales to the bases. ABDOMEN: Soft, obese nontender. Bowel sounds are heard. No organomegaly noted. EXTREMITIES: 1+ peripheral pulses with 1+ evidence of peripheral edema and no calf tenderness noted. BiLateral Zac wraps in place NEUROLOGIC patient is awake, alert and oriented -3. - Labs CBC & Chem 7: 01/20/17 05:46 01/20/17 05:46 Labs: Abnormal Lab Results - Last 24 Hours (Table) 01/19/17 01/19/17 01/19/17 Range/Units 14:10 19:48 21:58 Hgb (11.4-16.0) gm/dL MCHC (31.0-37.0) g/dL RDW (11.5-15.5) % Lymphocytes # (1.0-4.8) k/uL BUN (7-17) mg/dL Creatinine (0.52-1.04) mg/dL POC Glucose (mg/dL) 131 H 101 H 115 H (75-99) mg/dL AST (14-36) U/L Alkaline Phosphatase (38-126) U/L Albumin (3.5-5.0) g/dL 01/19/17 01/20/17 01/20/17 Range/Units 23:53 03:56 05:46 Hgb 11.1 L (11.4-16.0) gm/dL MCHC 29.5 L (31.0-37.0) g/dL RDW 17.2 H (11.5-15.5) % Lymphocytes # 0.8 L (1.0-4.8) k/uL BUN (7-17) mg/dL Creatinine (0.52-1.04) mg/dL POC Glucose (mg/dL) 114 H 120 H (75-99) mg/dL AST (14-36) U/L Alkaline Phosphatase (38-126) U/L Albumin (3.5-5.0) g/dL 01/20/17 01/20/17 01/20/17 Range/Units 05:46 08:25 11:15 Hgb (11.4-16.0) gm/dL MCHC (31.0-37.0) g/dL RDW (11.5-15.5) % Lymphocytes # (1.0-4.8) k/uL BUN 36 H (7-17) mg/dL Creatinine 1.60 H (0.52-1.04) mg/dL POC Glucose (mg/dL) 138 H 138 H (75-99) mg/dL AST 41 H (14-36) U/L Alkaline Phosphatase 150 H (38-126) U/L Albumin 3.3 L (3.5-5.0) g/dL 01/20/17 Range/Units 11:27 Hgb (11.4-16.0) gm/dL MCHC (31.0-37.0) g/dL RDW (11.5-15.5) % Lymphocytes # (1.0-4.8) k/uL BUN (7-17) mg/dL Creatinine (0.52-1.04) mg/dL POC Glucose (mg/dL) 147 H (75-99) mg/dL AST (14-36) U/L Alkaline Phosphatase (38-126) U/L Albumin (3.5-5.0) g/dL Microbiology - Last 24 Hours (Table) 01/18/17 13:02 Blood Culture - Preliminary Blood No Growth after 24 hours Assessment and Plan Plan: Assessment and plan #1 systolic congestive heart failure acute on chronic #2 known history of coronary artery disease with prior bypass surgery and stent placement #3 hypertension #4 hyperlipidemia #5 diabetes #6 bladder cancer on chemotherapy #7 chronic persistent atrial fibrillation, patient used to be on Coumadin but because of hematuria from the bladder cancer this had been discontinued. Plan Echocardiogram with Doppler study was performed which revealed an ejection fraction of 35-40%, moderate to severe tricuspid regurg and severe pulmonary hypertension. Decrease aspirin 81 mg daily, continue current dose of IV Lasix, continue a beta jemal. We will add a small dose of ZAC inhibitor as well as Aldactone to the medication regime. Continue to monitor intake and output along with daily weights. DNP note has been reviewed, I agree with a documented findings and plan of care. Patient was seen and examined.
--- NOTE | 2017-01-20 13:35 | P.PN ---
Progress Note - Text Progress Note Date: 01/20/17 This is an addendum to the cardiology progress note dictated today, we will not start the patient on an STANISLAW inhibitor, we will however start the patient on Entresto today. DNP note has been reviewed, I agree with a documented findings and plan of care. Patient was seen and examined.
[2017-01-20] MEDS: SACUBITRIL/VALSARTAN 24 MG-26 MG TABLET PO SCH ×2 (14:40→20:49)
[2017-01-20 14:44] LABS: Glucose,Whole Blood 171 mg/dL (75-99)
[2017-01-20] MEDS: DEXTROSE 5% IN WATER 1,000 ML IV SCH (14:44)
[2017-01-20 17:13] LABS: Glucose,Whole Blood 160 mg/dL (75-99)
--- NOTE | 2017-01-20 17:33 | PN ---
PROGRESS NOTE DATE OF SERVICE: 01/20/2017 INTERVAL HISTORY: This 89-year-old woman who was admitted with CHF acute exacerbation also had acute bilateral leg cellulitis also. The patient is on broad-spectrum IV antibiotics. The patient is also on diuretics also. Cultures are negative so far. The fluid and electrolytes balance shows some negative fluid balance. The patient has lost at least 2 kilos per chart. The patient also has hypoglycemia possibly secondary to medications. PAST MEDICAL HISTORY: Reviewed. REVIEW OF SYSTEMS: Cardio system: No angina or palpitations. Respiratory: As mentioned earlier. GI: As mentioned earlier. : As mentioned earlier. NERVOUS SYSTEM: No numbness or weakness. MEDICATIONS: Reviewed and include: 1. Aspirin 81 mg daily. 2. Lipitor 40 mg. 3. Cefazolin 1 to 2 g IV b.i.d. 4. Vitamin D3. 5. Dextrose in water. Otherwise other medications are reviewed. PHYSICAL EXAM: Patient is alert, oriented x3. Pulse 92, blood pressure 133/40. Respirations 20. Temperature 97.4, pulse ox 92% on 3 L. HEENT: Conjunctivae normal. Oral mucosa is moist. Neck is jugular venous distention at the root of the neck. Cardiovascular: S1, S2, ejection systolic murmur present. Respiratory: Breath sounds diminished at the bases. A few scattered rhonchi and crackles. ABDOMEN: Soft, nontender. No mass palpable. Legs bilateral leg edema. Erythema and cellulitis also present. Nervous system: Higher functions as mentioned earlier. Moves all four limbs. No focal deficits. Lymphatics: No lymph nodes palpable in the neck, axillae or groin. SKIN: No ulcer, rash or bleeding. LABS: WBC 5.8, hemoglobin 11.1, creatinine is 1.60, glucose 138. ASSESSMENT: 1. Shortness of breath multifactorial possibly congestive heart failure acute exacerbation with acute on chronic systolic dysfunction, ejection fraction 35-40% as well as moderate to severe tricuspid regurgitation and severe pulmonary hypertension. 2. Bilateral leg cellulitis and edema. 3. Chronic persistent atrial fibrillation. 4. Diabetes type 2. 5. History of coronary artery disease. RECOMMENDATIONS AND DISCUSSION: Recommend to continue current management. Symptomatic treatment. Monitor fluid and electrolytes balance closely. Patient is still currently on IV Lasix. We will continue to monitor and creatinine is 1.6 at this time. Repeat labs have been ordered. Monitor blood sugars closely. Patient has severe hypoglycemia. All the home medications on hold at this time. The patient is on D5 water drip. I would stop the D5 water drip and continue the blood sugars closely. Blood sugars being elevated. Home medication can be arranged, home diabetic medication can be arranged gradually. Once again, the prognosis guarded because of multiple complex medical issues. Further recommendations to follow. TOBIN / IJN: [id number] /
[2017-01-20] MEDS: ATORVASTATIN 40 MG TAB PO SCH (20:49)
[2017-01-20 21:12] LABS: Glucose,Whole Blood 210 mg/dL (75-99)
[2017-01-21] MEDS: SILVER sulfADIAZINE Cream 400 GM 1 APPLIC APPLIC TOPICAL SCH ×4 (01:38→15:15)
[2017-01-21 02:21] LABS: Glucose,Whole Blood 165 mg/dL (75-99)
[2017-01-21 06:09] LABS: Basophils # (A) 0.1 k/uL (0-0.2); Basophils % (A) 1 %; CH 26.5; CHCM 29.7; Eosinophils # (A) 0.5 k/uL (0-0.7); Eosinophils % (A) 6 %; HCT 38.8 % (34.0-46.0); HDW 2.64; HGB 11.8 gm/dL (11.4-16.0); Hypochromasia Marked; Luc % (Auto) 4; Lymphocytes # (A) 0.9 k/uL (1.0-4.8); Lymphocytes % (A) 12 %; MCH 27.3 pg (25.0-35.0); MCHC 30.3 g/dL (31.0-37.0); Mean Platelet Volume 7.8; Monocytes # (A) 0.7 k/uL (0-1.0); Monocytes % (A) 9 %; Neutrophils # (A) 5.3 k/uL (1.3-7.7); Neutrophils % (A) 69 %; RBC 4.31 m/uL (3.80-5.40); RDW 15.7 % (11.5-15.5); WBC 7.7 k/uL (3.8-10.6); WBC (Perox) 7.71
[2017-01-21 06:17] LABS: Calcium 8.8 mg/dL (8.4-10.2); Potassium 3.8 mmol/L (3.5-5.1); Total Bilirubin 0.5 mg/dL (0.2-1.3)
[2017-01-21 06:25] LABS: Glucose,Whole Blood 143 mg/dL (75-99)
[2017-01-21] MEDS: INSULIN LISPRO (humaLOG) 300 UNIT/3 ML VIAL SQ SCH ×4 (06:36→20:58)
[2017-01-21] MEDS ORDERED: LISINOPRIL 2.5 MG TAB PO SCH (09:00)
[2017-01-21] MEDS: traMADol-ACETAMINOP 37.5-325MG 1 EACH TAB PO SCH ×2 (09:14→20:54)
[2017-01-21] MEDS: SPIRONOLACTONE 25 MG TAB PO SCH (09:15)
[2017-01-21] MEDS: ASPIRIN 81 MG PO SCH (09:15)
[2017-01-21] MEDS: METOPROLOL TARTRATE 50 MG TAB PO SCH ×2 (09:15→20:50)
[2017-01-21] MEDS: SACUBITRIL/VALSARTAN 24 MG-26 MG TABLET PO SCH ×2 (09:15→20:50)
[2017-01-21] MEDS: FUROSEMIDE 10 MG/ML 10 ML VIAL IV SCH (09:15)
[2017-01-21] MEDS: ceFAZolin 2 GM in SODIUM CHLORIDE 0.9% 100 ML IVPB SCH ×2 (09:20→20:55)
[2017-01-21 12:00] LABS: Glucose,Whole Blood 164 mg/dL (75-99)
[2017-01-21] MEDS: CHOLECALCIFEROL 1,000 UNIT TAB PO SCH (12:29)
[2017-01-21] MEDS: MULTIVITAMINS, THERA 1 EACH TAB PO SCH (12:29)
--- NOTE | 2017-01-21 14:31 | PN ---
PROGRESS NOTE This patient was admitted with congestive cardiac failure. She is feeling much better. She has lost about 5 pounds of weight. Her swelling in the legs is improved. Patient's creatinine remains stable. PHYSICAL EXAMINATION: First and second heart sounds are normal. Lungs are clinically clear to auscultation and percussion. Swelling in the legs is improved. I will DC the IV Lasix and start her on oral Lasix. We will report the chest x-ray tomorrow. MMODL / IJN: [id number] /
[2017-01-21] MEDS: FUROSEMIDE 40 MG TAB PO SCH (15:34)
--- NOTE | 2017-01-21 15:40 | PN ---
PROGRESS NOTE DATE OF SERVICE: 01/21/2017 INTERVAL HISTORY: This 89-year-old woman who was admitted with CHF acute exacerbation is closely monitor. The patient is on diuretics at this time. No chest pain. No palpitations. No fever. EXAM: Alert and oriented x3. Pulse 77, blood pressure 133/84, respirations 20, temperature 97.2, pulse ox 94% on 3 L. HEENT: Conjunctivae normal. Oral mucosa moist. NECK: No jugular venous distention. No carotid bruit. No lymph node enlargement. CARDIOVASCULAR: S1, S2. RESPIRATORY: Breath sounds diminished in the bases. A few scattered rhonchi and crackles. ABDOMEN: Soft, nontender. LEGS: Bilateral leg edema, improving. NERVOUS SYSTEM: No focal deficits. LABS: Creatinine 1.60, otherwise other labs are noted. ASSESSMENT: 1. Shortness of breath possibly multifactorial with acute congestive heart failure acute exacerbation with acute on chronic systolic dysfunction, ejection fraction 35- 40% as well as moderate to severe tricuspid regurgitation and severe pulmonary hypertension. 2. Bilateral leg cellulitis and edema. 3. Chronic persistent atrial fibrillation. 4. Diabetes mellitus type 2. 5. History of coronary artery disease. RECOMMENDATIONS AND DISCUSSION: I recommend to continue current medications and symptomatic treatment at this time. We will monitor the patient closely. Continue with the diuretics cautiously and continue the local treatment. Guarded prognosis. Further recommendations to follow. MMODL / IJN: [id number] /
[2017-01-21 17:29] LABS: Glucose,Whole Blood 201 mg/dL (75-99)
[2017-01-21] MEDS: ATORVASTATIN 40 MG TAB PO SCH (20:50)
[2017-01-21 20:56] LABS: Glucose,Whole Blood 264 mg/dL (75-99)
[2017-01-22 03:40] LABS: Basophils # (A) 0.1 k/uL (0-0.2); Basophils % (A) 1 %; CH 26.8; Eosinophils # (A) 0.6 k/uL (0-0.7); Eosinophils % (A) 8 %; HCT 39.5 % (34.0-46.0); HDW 2.59; HGB 11.8 gm/dL (11.4-16.0); Hypochromasia Marked; Luc # (Auto) 0.27; Luc % (Auto) 4; Lymphocytes # (A) 1.1 k/uL (1.0-4.8); Lymphocytes % (A) 16 %; MCH 26.9 pg (25.0-35.0); MCHC 29.9 g/dL (31.0-37.0); MCV 89.8 fL (80.0-100.0); Monocytes # (A) 0.6 k/uL (0-1.0); Monocytes % (A) 9 %; Neutrophils # (A) 4.2 k/uL (1.3-7.7); Neutrophils % (A) 62 %; RDW 15.6 % (11.5-15.5); WBC 6.8 k/uL (3.8-10.6); WBC (Perox) 6.42
[2017-01-22 03:51] LABS: Calcium 8.9 mg/dL (8.4-10.2); Magnesium 1.7 mg/dL (1.6-2.3); Potassium 3.7 mmol/L (3.5-5.1); Total Bilirubin 0.5 mg/dL (0.2-1.3); Total Protein 5.7 g/dL (6.3-8.2)
[2017-01-22 05:49] LABS: Glucose,Whole Blood 144 mg/dL (75-99)
[2017-01-22] MEDS: INSULIN LISPRO (humaLOG) 300 UNIT/3 ML VIAL SQ SCH ×4 (07:26→20:52)
--- NOTE | 2017-01-22 07:48 | XR ---
EXAMINATION TYPE: XR chest 2V DATE OF EXAM: 01/22/2017 COMPARISON: 01/19/2017 HISTORY: 89-year-old female follow-up CHF TECHNIQUE: Rectal and lateral views FINDINGS: Sternotomy wires are present with post-CABG clips in the mediastinum. Heart remains borderline enlarg ed. Diffuse interstitial prominence persists. Small effusions also persist with some patchy right gre ater than left bibasilar opacity. Slight improving aeration at the right base. IMPRESSION: 1. CHF with pulmonary vascular congestion and mild interstitial edema. There is some improving aerati on on the right. 2. Continued small effusions with adjacent atelectasis and/or consolidation.
[2017-01-22] MEDS: traMADol-ACETAMINOP 37.5-325MG 1 EACH TAB PO SCH ×2 (08:31→20:48)
[2017-01-22] MEDS: FUROSEMIDE 40 MG TAB PO SCH ×2 (08:31→16:06)
[2017-01-22] MEDS: SPIRONOLACTONE 25 MG TAB PO SCH (08:31)
[2017-01-22] MEDS: SACUBITRIL/VALSARTAN 24 MG-26 MG TABLET PO SCH ×2 (08:31→20:45)
[2017-01-22] MEDS: ASPIRIN 81 MG PO SCH (08:32)
[2017-01-22] MEDS: SILVER sulfADIAZINE Cream 400 GM 1 APPLIC APPLIC TOPICAL SCH (08:32)
[2017-01-22] MEDS: METOPROLOL TARTRATE 50 MG TAB PO SCH ×2 (08:32→20:45)
[2017-01-22] MEDS: ceFAZolin 2 GM in SODIUM CHLORIDE 0.9% 100 ML IVPB SCH ×2 (11:34→20:48)
[2017-01-22] MEDS: CHOLECALCIFEROL 1,000 UNIT TAB PO SCH (11:34)
[2017-01-22] MEDS: MULTIVITAMINS, THERA 1 EACH TAB PO SCH (11:34)
[2017-01-22 11:54] LABS: Glucose,Whole Blood 213 mg/dL (75-99)
[2017-01-22] MEDS ORDERED: POTASSIUM CHLORIDE ER 20 MEQ TAB.ER PO STA (12:42)
[2017-01-22] MEDS ORDERED: Potassium Replacement Protocol 1 EACH MISC MISCELLANE PRN (13:02)
[2017-01-22] MEDS ORDERED: Magnesium Replacement Protocol 1 EACH MISC MISCELLANE PRN (13:03)
--- NOTE | 2017-01-22 13:19 | P.PN ---
Subjective Progress Note Date: 01/22/17 Progress note being dictated for 01/19/17 Interval history: This is a 89-year-old female admitted with acute CHF exacerbation, bilateral leg cellulitis, chronic persistent atrial fibrillation and multiple other medical issues. Chest x-ray compatible with CHF, basilar density increased. Diuresing well on Lasix IV push with 24-hour I&O reflecting a negative fluid balance. Maintained on nebulized bronchodilators, IV diuretics with breathing and edema improving. Hypoglycemic and currently receiving IV dextrose 5%. Good diet intake. Denies chest pain, palpitations. 01/22/17 chest x-ray reporting improving aeration of the right, CHF with pulmonary vascular congestion .converted to oral Lasix, breathing improving, reports less exertional shortness of breath. Creatine 1.5. telemetry reported at 10 beat asymptomatic, nonsustained run of wide-complex tachycardia. Magnesium 1.7, potassium 3.5, receiving supplementation. Denies chest pain, palpitations. Afebrile. Objective - Vital Signs Vital signs: Vital Signs Temp 97.2 F L 01/22/17 11:27 Pulse 81 01/22/17 11:27 Resp 20 01/22/17 11:27 BP 129/64 01/22/17 11:27 Pulse Ox 93 L 01/22/17 11:27 Intake & Output 01/21/17 01/22/17 01/22/17 18:59 06:59 18:59 Intake Total 350 236 Output Total 1800 250 Balance -1800 100 236 Weight 84.1 kg Intake: Intake, IV Titration 100 Amount ceFAZolin 2 gm In Sodium 100 Chloride 0.9% 100 ml @ 100 mls/hr IVPB Q12HR [facility] Rx#:[id number] Oral 250 236 Output: Urine 1800 250 Other: Voiding Method Bedside Commode Bedside Commode Bedside Commode # Voids 1 # Bowel Movements 1 - Exam PHYSICAL EXAM: VITAL SIGNS: As above GENERAL: Sitting up in bed, minimal shortness of breath with speaking HEENT: Conjunctivae normal. eyes normal. Oral mucosa moist. NECK: No JVD. No thyroid enlargement. No LNs CARDIOVASCULAR: S1, S2 muffled. Positive systolic murmur. RESPIRATION: Breath sounds diminished in the bases. Scattered rhonchi, no crackles ABDOMEN: Soft, nontender . No guarding. no masses palpable. .Bowel sounds heard. LEGS: Bilateral lower extremities Zac wraps, clean dry and intact. Improving edema PSYCHIATRY: Alert and oriented -3, mood and affect normal. NERVOUS SYSTEM: Cranial N 2-12 grossly normal. Moves all 4 limbs. Diffuse weakness No focal deficits. No sensory deficit. - Labs CBC & Chem 7: 01/22/17 03:25 01/22/17 03:25 Labs: Abnormal Lab Results - Last 24 Hours (Table) 01/21/17 01/21/17 01/22/17 Range/Units 17:02 20:55 03:25 MCHC 29.9 L (31.0-37.0) g/dL RDW 15.6 H (11.5-15.5) % BUN (7-17) mg/dL Creatinine (0.52-1.04) mg/dL Glucose (74-99) mg/dL POC Glucose (mg/dL) 201 H 264 H (75-99) mg/dL Alkaline Phosphatase (38-126) U/L Total Protein (6.3-8.2) g/dL Albumin (3.5-5.0) g/dL 01/22/17 01/22/17 01/22/17 Range/Units 03:25 05:47 11:40 MCHC (31.0-37.0) g/dL RDW (11.5-15.5) % BUN 35 H (7-17) mg/dL Creatinine 1.50 H (0.52-1.04) mg/dL Glucose 166 H (74-99) mg/dL POC Glucose (mg/dL) 144 H 213 H (75-99) mg/dL Alkaline Phosphatase 139 H (38-126) U/L Total Protein 5.7 L (6.3-8.2) g/dL Albumin 2.8 L (3.5-5.0) g/dL Microbiology - Last 24 Hours (Table) 01/18/17 13:02 Blood Culture - Preliminary Blood No Growth after 72 hours Assessment and Plan Plan: 1. [ Shortness of breath, multifactorial; Acute exacerbation CHF, systolic dysfunction EF 35-40%]. Moderate to Severe tricuspid regurgitation, severe pulmonary hypertension. 2. [ Bilateral leg cellulitis]. 3. [ Chronic persistent atrial fibrillation]. 4. [ Diabetes mellitus type 2]. 5. [ CAD] 6. Nonsustained V. tach, asymptomatic. Plan: Continue on current medication regime , beta jemal, diuretics monitoring and symptomatic treatment. Continue diuresing on oral Lasix. Magnesium and potassium being supplemented with replacement protocols. Close monitoring of electrolytes with repeat labs ordered for a.m. given patient's arrhythmia during the night, we will continue to monitor overnight. Discharge planning in progress for tomorrow. The impression and plan of care has been dictated as directed. : I performed a history and examination of this patient, discussed the same with the dictator. I agree with the dictator's note ,documented as a scribe. Any additional findings or plans will be noted.
--- NOTE | 2017-01-22 14:24 | P.PN ---
Subjective Progress Note Date: 01/22/17 Principal diagnosis: Shortness of breath This is a pleasant 89-year-old female who follows regularly with Dr. Scott in the office. She has a known history of chronic persistent atrial fibrillation, ischemic cardiomyopathy, hypertension, renal insufficiency , hyperlipidemia, diabetes, coronary artery disease with prior bypass surgery in 2001 subsequent to that patient had a stent to the mid PDA in 2009, 's recent heart catheterization was in 2011. Patient also has bladder cancer for which she is currently undergoing chemo therapy. She presents to the hospital with symptoms of progressively worsening shortness of breath as well as significant swelling in her bilateral extremities and abdominal area. Positive PND and orthopnea. She states that this has been present and worsening over the past one month. Because of her issues with her bladder cancer and chemo she delayed coming to the hospital until now. EKG on admission showed atrial fibrillation with a moderately rapid ventricular response. Chest x-ray findings compatible with congestive heart failure. Venous duplex study negative for DVT in the left leg. Echocardiogram with Doppler study was performed which revealed an ejection fraction of 35-40%. Moderate to severe tricuspid regurgitation, severe pulmonary hypertension. Blood pressure on arrival 180/70 with a heart rate of 105, respirations 28, 96% on room air. White blood cell count 10.5, hemoglobin 12.4, platelet count 191, sodium 139, potassium 5.8 on admission, 4.7 this morning. BUN 41 and creatinine 1.7 on admission, 39 and 1.6 this morning. Mag level 2.4. AST 46, ALT 46, alk phos 147, troponin 0.012, BNP level 9760. She was initiated on IV Lasix in the emergency room, weight is down 4 kg from admission. Patient continues to be significantly short of breath, especially after getting up to go to the commode.. 01/20/2017 Patient seen and examined this morning, still appears quite short of breath however states that her breathing is significantly improved. Her weight today is down 2 kg, continues to diurese very well. Creatinine 1.6 today. Blood pressure 138/70. 01/22/2017 Patient seen and examined this morning, feeling well overall, able to take a deep breath. She was noted to have a run of 10 complex nonsustained ventricular tachycardia through the night last night. Chest x-ray revealed improvement in congestive cardiac failure she is currently on by mouth Lasix. Potassium today 3.7 with a magnesium of 1.7. Continue to observe for 24 hours and plan for possible discharge home in the morning if stable. Objective - Vital Signs Vital signs: Vital Signs Temp 97.2 F L 01/22/17 11:27 Pulse 81 01/22/17 11:27 Resp 20 01/22/17 11:27 BP 129/64 01/22/17 11:27 Pulse Ox 93 L 01/22/17 11:27 Intake & Output 01/21/17 01/22/17 01/22/17 18:59 06:59 18:59 Intake Total 350 236 Output Total 1800 250 Balance -1800 100 236 Weight 84.1 kg Intake: Intake, IV Titration 100 Amount ceFAZolin 2 gm In Sodium 100 Chloride 0.9% 100 ml @ 100 mls/hr IVPB Q12HR [facility] Rx#:[id number] Oral 250 236 Output: Urine 1800 250 Other: Voiding Method Bedside Commode Bedside Commode Bedside Commode # Voids 1 # Bowel Movements 1 - Exam PHYSICAL EXAMINATION: HEENT: Head is atraumatic, normocephalic. Pupils equal, round. Neck is supple. There is elevated jugular venous pressure. HEART EXAMINATION: S1 and S2 irregularly irregular a systolic murmur is heard. CHEST EXAMINATION: Reveal diminished air entry bilaterally with rales to the bases. ABDOMEN: Soft, obese nontender. Bowel sounds are heard. No organomegaly noted. EXTREMITIES: 1+ peripheral pulses with 1+ evidence of peripheral edema and no calf tenderness noted. BiLateral Zac wraps in place NEUROLOGIC patient is awake, alert and oriented -3. - Labs CBC & Chem 7: 01/22/17 03:25 01/22/17 03:25 Labs: Abnormal Lab Results - Last 24 Hours (Table) 01/21/17 01/21/17 01/22/17 Range/Units 17:02 20:55 03:25 MCHC 29.9 L (31.0-37.0) g/dL RDW 15.6 H (11.5-15.5) % BUN (7-17) mg/dL Creatinine (0.52-1.04) mg/dL Glucose (74-99) mg/dL POC Glucose (mg/dL) 201 H 264 H (75-99) mg/dL Alkaline Phosphatase (38-126) U/L Total Protein (6.3-8.2) g/dL Albumin (3.5-5.0) g/dL 01/22/17 01/22/17 01/22/17 Range/Units 03:25 05:47 11:40 MCHC (31.0-37.0) g/dL RDW (11.5-15.5) % BUN 35 H (7-17) mg/dL Creatinine 1.50 H (0.52-1.04) mg/dL Glucose 166 H (74-99) mg/dL POC Glucose (mg/dL) 144 H 213 H (75-99) mg/dL Alkaline Phosphatase 139 H (38-126) U/L Total Protein 5.7 L (6.3-8.2) g/dL Albumin 2.8 L (3.5-5.0) g/dL Microbiology - Last 24 Hours (Table) 01/18/17 13:02 Blood Culture - Preliminary Blood No Growth after 72 hours Assessment and Plan Plan: Assessment and plan #1 systolic congestive heart failure acute on chronic #2 known history of coronary artery disease with prior bypass surgery and stent placement #3 hypertension #4 hyperlipidemia #5 diabetes #6 bladder cancer on chemotherapy #7 chronic persistent atrial fibrillation, patient used to be on Coumadin but because of hematuria from the bladder cancer this had been discontinued. Plan Echocardiogram with Doppler study was performed which revealed an ejection fraction of 35-40%, moderate to severe tricuspid regurg and severe pulmonary hypertension. Cardiology's perspective, we'll replace the potassium and magnesium, continue to monitor for 24 hours and plan for possible discharge home in the morning if stable. DNP note has been reviewed, I agree with a documented findings and plan of care. Patient was seen and examined.
--- NOTE | 2017-01-22 15:43 | CDI ---
In responding to this query, please exercise your independent professional judgment. The [facility] Coding Staff and Clinical Documentation Specialists appreciate your assistance in clarifying documentation, maintaining compliance with coding guidelines, accurately documenting patients condition and capturing severity of illness. The fact that a question is asked does not imply that any particular answer is desired or expected. Communication forms are a method of clarifying documentation and are not made part of the Legal Health Record. Thank you in advance for your clarification. Last Revision, February 2015 Rajinder Roe [address] [place] [address] Documentation Clarification Form Date: 01/22/2017 3:33:00 PM From: Ne Oropeza RN, CCDS Admit Date: 01/18/2017 3:20:00 PM Patient Name: Mallika Chiu Visit Number: [id number] Dr. Christie Solorzano/ Doris Leavitt [employer] History/Risk Factors: "renal Insuffiency" is documented in the PMH, A/C systolic CHF, HTN, CAD, Atrial Fib, Increasing SOB Clinical Indicators 07/31/16 Patients baseline BUN/CR/GFR: 33/1.22/42 Patient presents with a BUN:41/39/36 CR: 1.7/1.66/1.6 GFR: / Treatment: Consults: IVF: D5W @ 30 cc/hr Lasix 80 mg IVP Q 8 hrs changed to 40 mg PO BID In order to capture the severity of condition, please clarify if the condition signifies: Acute renal failure Please specify (if known): Cortical, Medullary, or Tubular Necrosis? Acute kidney injury Acute on chronic renal failure Chronic renal failure, please stage Chronic kidney disease (CKD) and please stage Stage 1 GFR >90 Stage 2 GFR 60-89 Stage 3 GFR 30-59 Stage 4 GFR 15-29 Stage 5 GFR <15 ESRD Unable to determine Other, specify Please document in your progress notes and discharge summary in order to capture severity of illness and risk of mortality. Include clinical findings that support your diagnosis. FYI: Press F11 to launch patient chart. Already dictated MTDD
--- NOTE | 2017-01-22 15:53 | CDI ---
In responding to this query, please exercise your independent professional judgment. The [facility] Coding Staff and Clinical Documentation Specialists appreciate your assistance in clarifying documentation, maintaining compliance with coding guidelines, accurately documenting patients condition and capturing severity of illness. The fact that a question is asked does not imply that any particular answer is desired or expected. Communication forms are a method of clarifying documentation and are not made part of the Legal Health Record. Thank you in advance for your clarification. Last Revision, February 2015 Rajinder Roe [address] [place] [address] Documentation Clarification Form Date: 01/22/2017 3:43:00 PM From: Ne Oropeza RN, CCDS Admit Date: 01/18/2017 3:20:00 PM Patient Name: Mallika Chiu Visit Number: [id number] Dr. Christie Solorzano/ Doris Leavitt CNP CHF has been documented in the H&P & progress notes. Patient has a documented history of Hypertension and Chronic Kidney Disease. Hx/Risk Factors & Clinical indicators: Renal insuffiency, A/C systolic CHF this admission, HTN, CAD, Afib, Treatment: Lasix 80 Mg IVP Q 8 hrs, decreased to 40 mg PO BID Aldactone 25 mg PO Daily D5W @ 30 cc/hr 01/18 Chest X Ray: "Findings compatible with congestive failure. Infiltrates of other etiology are not excluded." Consults: Cardiology Please clarify the relationship between CHF and Hypertension: Congestive Heart Failure due to Hypertensive Heart Disease with CKD, please stage Congestive Heart Failure due to Hypertensive Heart Disease Cardiorenal Disease No relationship Unable to determine Other, please specify Please document in your progress notes and discharge summary in order to capture severity of illness and risk of mortality. Include clinical findings that support your diagnosis. FYI: Press F11 to launch patient chart. Place X here if this finding has no clinical significance, is not applicable or if you are not able to provide any additional documentation. ROSSI
[2017-01-22 16:53] LABS: Glucose,Whole Blood 248 mg/dL (75-99)
[2017-01-22] MEDS: ATORVASTATIN 40 MG TAB PO SCH (20:45)
[2017-01-22 20:47] LABS: Glucose,Whole Blood 203 mg/dL (75-99)
[2017-01-23 05:57] LABS: Glucose,Whole Blood 182 mg/dL (75-99)
[2017-01-23] MEDS: INSULIN LISPRO (humaLOG) 300 UNIT/3 ML VIAL SQ SCH ×4 (06:39→21:21)
[2017-01-23 08:20] LABS: Basophils # (A) 0.1 k/uL (0-0.2); Basophils % (A) 1 %; CH 26.8; CHCM 29.5; Eosinophils # (A) 0.5 k/uL (0-0.7); Eosinophils % (A) 8 %; HCT 38.2 % (34.0-46.0); HDW 2.57; HGB 11.5 gm/dL (11.4-16.0); Hypochromasia Marked; Luc % (Auto) 3; Lymphocytes # (A) 1.2 k/uL (1.0-4.8); Lymphocytes % (A) 17 %; MCH 27.6 pg (25.0-35.0); MCHC 30.1 g/dL (31.0-37.0); MCV 91.4 fL (80.0-100.0); Mean Platelet Volume 7.9; Monocytes # (A) 0.6 k/uL (0-1.0); Monocytes % (A) 9 %; Neutrophils # (A) 4.4 k/uL (1.3-7.7); Neutrophils % (A) 63 %; RBC 4.17 m/uL (3.80-5.40); RDW 15.6 % (11.5-15.5); WBC 6.9 k/uL (3.8-10.6); WBC (Perox) 6.99
[2017-01-23 08:27] LABS: Calcium 8.9 mg/dL (8.4-10.2); Magnesium 1.7 mg/dL (1.6-2.3); Potassium 4.4 mmol/L (3.5-5.1); Total Bilirubin 0.4 mg/dL (0.2-1.3)
[2017-01-23] MEDS: FUROSEMIDE 40 MG TAB PO SCH ×2 (09:01→16:02)
[2017-01-23] MEDS: SACUBITRIL/VALSARTAN 24 MG-26 MG TABLET PO SCH ×2 (09:01→20:25)
[2017-01-23] MEDS: METOPROLOL TARTRATE 50 MG TAB PO SCH ×2 (09:01→20:25)
[2017-01-23] MEDS: ASPIRIN 81 MG PO SCH (09:01)
[2017-01-23] MEDS: traMADol-ACETAMINOP 37.5-325MG 1 EACH TAB PO SCH ×2 (09:01→20:25)
[2017-01-23] MEDS: SPIRONOLACTONE 25 MG TAB PO SCH (09:01)
[2017-01-23] MEDS: ceFAZolin 2 GM in SODIUM CHLORIDE 0.9% 100 ML IVPB SCH (09:02)
[2017-01-23] MEDS: SILVER sulfADIAZINE Cream 400 GM 1 APPLIC APPLIC TOPICAL SCH (09:02)
[2017-01-23 11:22] LABS: Glucose,Whole Blood 216 mg/dL (75-99)
[2017-01-23] MEDS: CHOLECALCIFEROL 1,000 UNIT TAB PO SCH (11:42)
[2017-01-23] MEDS: MULTIVITAMINS, THERA 1 EACH TAB PO SCH (11:42)
--- NOTE | 2017-01-23 13:56 | P.PN ---
Subjective Progress Note Date: 01/23/17 Principal diagnosis: Shortness of breath This is a pleasant 89-year-old female who follows regularly with Dr. Scott in the office. She has a known history of chronic persistent atrial fibrillation, ischemic cardiomyopathy, hypertension, renal insufficiency , hyperlipidemia, diabetes, coronary artery disease with prior bypass surgery in 2001 subsequent to that patient had a stent to the mid PDA in 2009, 's recent heart catheterization was in 2011. Patient also has bladder cancer for which she is currently undergoing chemo therapy. She presents to the hospital with symptoms of progressively worsening shortness of breath as well as significant swelling in her bilateral extremities and abdominal area. Positive PND and orthopnea. She states that this has been present and worsening over the past one month. Because of her issues with her bladder cancer and chemo she delayed coming to the hospital until now. EKG on admission showed atrial fibrillation with a moderately rapid ventricular response. Chest x-ray findings compatible with congestive heart failure. Venous duplex study negative for DVT in the left leg. Echocardiogram with Doppler study was performed which revealed an ejection fraction of 35-40%. Moderate to severe tricuspid regurgitation, severe pulmonary hypertension. Blood pressure on arrival 180/70 with a heart rate of 105, respirations 28, 96% on room air. White blood cell count 10.5, hemoglobin 12.4, platelet count 191, sodium 139, potassium 5.8 on admission, 4.7 this morning. BUN 41 and creatinine 1.7 on admission, 39 and 1.6 this morning. Mag level 2.4. AST 46, ALT 46, alk phos 147, troponin 0.012, BNP level 9760. She was initiated on IV Lasix in the emergency room, weight is down 4 kg from admission. Patient continues to be significantly short of breath, especially after getting up to go to the commode.. 01/20/2017 Patient seen and examined this morning, still appears quite short of breath however states that her breathing is significantly improved. Her weight today is down 2 kg, continues to diurese very well. Creatinine 1.6 today. Blood pressure 138/70. 01/22/2017 Patient seen and examined this morning, feeling well overall, able to take a deep breath. She was noted to have a run of 10 complex nonsustained ventricular tachycardia through the night last night. Chest x-ray revealed improvement in congestive cardiac failure she is currently on by mouth Lasix. Potassium today 3.7 with a magnesium of 1.7. Continue to observe for 24 hours and plan for possible discharge home in the morning if stable. 01/23/2017 Seen and examined this morning, feeling well overall. No further ectopy noted on the monitor. She may be able to be discharged home from cardiology's perspective to follow-up in the office post discharge. Objective - Vital Signs Vital signs: Vital Signs Temp 97.2 F L 01/23/17 12:12 Pulse 94 01/23/17 12:12 Resp 19 01/23/17 12:12 BP 117/60 01/23/17 12:12 Pulse Ox 95 01/23/17 12:12 Intake & Output 01/22/17 01/23/17 01/23/17 18:59 06:59 18:59 Intake Total 652 350 600 Output Total 300 600 900 Balance 352 -250 -300 Weight 84.3 kg Intake: Intake, IV Titration 100 Amount ceFAZolin 2 gm In Sodium 100 Chloride 0.9% 100 ml @ 100 mls/hr IVPB Q12HR [facility] Rx#:[id number] Oral 652 250 600 Output: Urine 300 600 900 Other: Voiding Method Bedside Commode Bedside Commode Bedside Commode # Voids 1 1 1 # Bowel Movements 1 - Exam PHYSICAL EXAMINATION: HEENT: Head is atraumatic, normocephalic. Pupils equal, round. Neck is supple. There is elevated jugular venous pressure. HEART EXAMINATION: S1 and S2 irregularly irregular a systolic murmur is heard. CHEST EXAMINATION: Reveal diminished air entry bilaterally with rales to the bases. ABDOMEN: Soft, obese nontender. Bowel sounds are heard. No organomegaly noted. EXTREMITIES: 1+ peripheral pulses with 1+ evidence of peripheral edema and no calf tenderness noted. BiLateral Zac wraps in place NEUROLOGIC patient is awake, alert and oriented -3. - Labs CBC & Chem 7: 01/23/17 06:27 01/23/17 06:27 Labs: Abnormal Lab Results - Last 24 Hours (Table) 01/22/17 01/22/17 01/23/17 Range/Units 16:49 20:46 05:54 MCHC (31.0-37.0) g/dL RDW (11.5-15.5) % BUN (7-17) mg/dL Creatinine (0.52-1.04) mg/dL Glucose (74-99) mg/dL POC Glucose (mg/dL) 248 H 203 H 182 H (75-99) mg/dL AST (14-36) U/L Alkaline Phosphatase (38-126) U/L Total Protein (6.3-8.2) g/dL Albumin (3.5-5.0) g/dL 01/23/17 01/23/17 01/23/17 Range/Units 06:27 06:27 11:20 MCHC 30.1 L (31.0-37.0) g/dL RDW 15.6 H (11.5-15.5) % BUN 31 H (7-17) mg/dL Creatinine 1.40 H (0.52-1.04) mg/dL Glucose 154 H (74-99) mg/dL POC Glucose (mg/dL) 216 H (75-99) mg/dL AST 39 H (14-36) U/L Alkaline Phosphatase 137 H (38-126) U/L Total Protein 6.0 L (6.3-8.2) g/dL Albumin 3.0 L (3.5-5.0) g/dL Microbiology - Last 24 Hours (Table) 01/18/17 13:02 Blood Culture - Preliminary Blood No Growth after 96 hours Assessment and Plan Plan: Assessment and plan #1 systolic congestive heart failure acute on chronic #2 known history of coronary artery disease with prior bypass surgery and stent placement #3 hypertension #4 hyperlipidemia #5 diabetes #6 bladder cancer on chemotherapy #7 chronic persistent atrial fibrillation, patient used to be on Coumadin but because of hematuria from the bladder cancer this had been discontinued. Plan Echocardiogram with Doppler study was performed which revealed an ejection fraction of 35-40%, moderate to severe tricuspid regurg and severe pulmonary hypertension. Cardiology's perspective, patient may be able to be discharged home today from cardiology's perspective. We will make her a follow-up appointment in the office 2 weeks post discharge. DNP note has been reviewed, I agree with a documented findings and plan of care. Patient was seen and examined.
[2017-01-23 16:19] LABS: Glucose,Whole Blood 210 mg/dL (75-99)
--- NOTE | 2017-01-23 16:59 | P.PN ---
Subjective Progress Note Date: 01/23/17 Progress note being dictated for 01/19/17 Interval history: This is a 89-year-old female admitted with acute CHF exacerbation, bilateral leg cellulitis, chronic persistent atrial fibrillation and multiple other medical issues. Chest x-ray compatible with CHF, basilar density increased. Diuresing well on Lasix IV push with 24-hour I&O reflecting a negative fluid balance. Maintained on nebulized bronchodilators, IV diuretics with breathing and edema improving. Hypoglycemic and currently receiving IV dextrose 5%. Good diet intake. Denies chest pain, palpitations. 01/22/17 chest x-ray reporting improving aeration of the right, CHF with pulmonary vascular congestion .converted to oral Lasix, breathing improving, reports less exertional shortness of breath. Creatine 1.5. telemetry reported at 10 beat asymptomatic, nonsustained run of wide-complex tachycardia. Magnesium 1.7, potassium 3.5, receiving supplementation. Denies chest pain, palpitations. Afebrile. 01/23/2017 no further ectopy per telemetry. Shortness of breath, exertional improving. Renal function improving. Denies chest pain, palpitations or increasing shortness of breath Objective - Vital Signs Vital signs: Vital Signs Temp 97.2 F L 01/23/17 12:12 Pulse 94 01/23/17 12:12 Resp 19 01/23/17 12:12 BP 117/60 01/23/17 12:12 Pulse Ox 95 01/23/17 12:12 Intake & Output 01/22/17 01/23/17 01/23/17 18:59 06:59 18:59 Intake Total 652 350 600 Output Total 223 452 6894 Balance 352 -250 -500 Weight 84.3 kg Intake: Intake, IV Titration 100 Amount ceFAZolin 2 gm In Sodium 100 Chloride 0.9% 100 ml @ 100 mls/hr IVPB Q12HR ROYCE Rx#:[id number] Oral 652 250 600 Output: Urine 817 321 7381 Other: Voiding Method Bedside Commode Bedside Commode Bedside Commode # Voids 1 1 1 # Bowel Movements 1 - Exam PHYSICAL EXAM: VITAL SIGNS: As above GENERAL: Sitting up in bed, improving shortness of breath with conversing HEENT: Conjunctivae normal. eyes normal. Oral mucosa moist. NECK: No JVD. No thyroid enlargement. No LNs CARDIOVASCULAR: S1, S2 muffled. Positive systolic murmur. RESPIRATION: Improved air entry. Breath sounds diminished in the bases. Scattered rhonchi, fine bibasilar crackles ABDOMEN: Soft, nontender . No guarding. no masses palpable. .Bowel sounds heard. LEGS: Bilateral lower extremities Zac wraps, clean dry and intact. Improving edema, erythema PSYCHIATRY: Alert and oriented -3, mood and affect normal. NERVOUS SYSTEM: Cranial N 2-12 grossly normal. Moves all 4 limbs. Diffuse weakness No focal deficits. No sensory deficit. - Labs CBC & Chem 7: 01/23/17 06:27 01/23/17 06:27 Labs: Abnormal Lab Results - Last 24 Hours (Table) 01/22/17 01/22/17 01/23/17 Range/Units 16:49 20:46 05:54 MCHC (31.0-37.0) g/dL RDW (11.5-15.5) % BUN (7-17) mg/dL Creatinine (0.52-1.04) mg/dL Glucose (74-99) mg/dL POC Glucose (mg/dL) 248 H 203 H 182 H (75-99) mg/dL AST (14-36) U/L Alkaline Phosphatase (38-126) U/L Total Protein (6.3-8.2) g/dL Albumin (3.5-5.0) g/dL 01/23/17 01/23/17 01/23/17 Range/Units 06:27 06:27 11:20 MCHC 30.1 L (31.0-37.0) g/dL RDW 15.6 H (11.5-15.5) % BUN 31 H (7-17) mg/dL Creatinine 1.40 H (0.52-1.04) mg/dL Glucose 154 H (74-99) mg/dL POC Glucose (mg/dL) 216 H (75-99) mg/dL AST 39 H (14-36) U/L Alkaline Phosphatase 137 H (38-126) U/L Total Protein 6.0 L (6.3-8.2) g/dL Albumin 3.0 L (3.5-5.0) g/dL 01/23/17 Range/Units 16:15 MCHC (31.0-37.0) g/dL RDW (11.5-15.5) % BUN (7-17) mg/dL Creatinine (0.52-1.04) mg/dL Glucose (74-99) mg/dL POC Glucose (mg/dL) 210 H (75-99) mg/dL AST (14-36) U/L Alkaline Phosphatase (38-126) U/L Total Protein (6.3-8.2) g/dL Albumin (3.5-5.0) g/dL Microbiology - Last 24 Hours (Table) 01/18/17 13:02 Blood Culture - Preliminary Blood No Growth after 120 hours Assessment and Plan Plan: 1. [ Shortness of breath, multifactorial; Acute exacerbation CHF, systolic dysfunction EF 35-40%, ischemic]. Moderate to Severe tricuspid regurgitation, severe pulmonary hypertension. 2. [ Bilateral leg cellulitis]. 3. [ Chronic persistent atrial fibrillation]. 4. [ Diabetes mellitus type 2]. 5. [ CAD] 6. Nonsustained V. tach, asymptomatic. 7. Acute on CKD, stage III Plan: Continue on current medication regime , beta jemal, diuretics monitoring and symptomatic treatment. Continue diuresing on oral Lasix. Close monitoring of electrolytes with repeat labs ordered for a.m. increase ambulation as tolerated with assistance. Transfer to [facility] with remote telemetry. Discharge planning in progress for tomorrow. The impression and plan of care has been dictated as directed. : I performed a history and examination of this patient, discussed the same with the dictator. I agree with the dictator's note ,documented as a scribe. Any additional findings or plans will be noted.
[2017-01-23] MEDS: ceFAZolin 1,000 MG in DEXTROSE/WATER 1 50ML.BAG IVPB SCH (20:24)
[2017-01-23] MEDS: ATORVASTATIN 40 MG TAB PO SCH (20:24)
[2017-01-23 21:12] LABS: Glucose,Whole Blood 197 mg/dL (75-99)
[2017-01-23 23:02] VITALS: RESP 18
[2017-01-24 05:36] VITALS: PULSE 82
[2017-01-24 05:58] LABS: Glucose,Whole Blood 160 mg/dL (75-99)
[2017-01-24] MEDS: INSULIN LISPRO (humaLOG) 300 UNIT/3 ML VIAL SQ SCH ×3 (06:33→17:12)
[2017-01-24] MEDS: METOPROLOL TARTRATE 50 MG TAB PO SCH (08:12)
[2017-01-24] MEDS: SACUBITRIL/VALSARTAN 24 MG-26 MG TABLET PO SCH (08:12)
[2017-01-24] MEDS: ceFAZolin 1,000 MG in DEXTROSE/WATER 1 50ML.BAG IVPB SCH (08:12)
[2017-01-24] MEDS: traMADol-ACETAMINOP 37.5-325MG 1 EACH TAB PO SCH (08:12)
[2017-01-24] MEDS: ASPIRIN 81 MG PO SCH (08:12)
[2017-01-24] MEDS: FUROSEMIDE 40 MG TAB PO SCH ×2 (08:12→15:20)
[2017-01-24] MEDS: SPIRONOLACTONE 25 MG TAB PO SCH (08:13)
[2017-01-24] MEDS: SILVER sulfADIAZINE Cream 400 GM 1 APPLIC APPLIC TOPICAL SCH (11:49)
[2017-01-24] MEDS: MULTIVITAMINS, THERA 1 EACH TAB PO SCH (11:49)
[2017-01-24] MEDS: CHOLECALCIFEROL 1,000 UNIT TAB PO SCH (11:49)
[2017-01-24 12:14] LABS: Glucose,Whole Blood 195 mg/dL (75-99)
[2017-01-24 15:08] VITALS: BP 126/67; TEMP 97.4
--- NOTE | 2017-01-24 16:07 | P.PN ---
Subjective Progress Note Date: 01/24/17 Principal diagnosis: Shortness of breath This is a pleasant 89-year-old female who follows regularly with Dr. Scott in the office. She has a known history of chronic persistent atrial fibrillation, ischemic cardiomyopathy, hypertension, renal insufficiency , hyperlipidemia, diabetes, coronary artery disease with prior bypass surgery in 2001 subsequent to that patient had a stent to the mid PDA in 2009, 's recent heart catheterization was in 2011. Patient also has bladder cancer for which she is currently undergoing chemo therapy. She presents to the hospital with symptoms of progressively worsening shortness of breath as well as significant swelling in her bilateral extremities and abdominal area. Positive PND and orthopnea. She states that this has been present and worsening over the past one month. Because of her issues with her bladder cancer and chemo she delayed coming to the hospital until now. EKG on admission showed atrial fibrillation with a moderately rapid ventricular response. Chest x-ray findings compatible with congestive heart failure. Venous duplex study negative for DVT in the left leg. Echocardiogram with Doppler study was performed which revealed an ejection fraction of 35-40%. Moderate to severe tricuspid regurgitation, severe pulmonary hypertension. Blood pressure on arrival 180/70 with a heart rate of 105, respirations 28, 96% on room air. White blood cell count 10.5, hemoglobin 12.4, platelet count 191, sodium 139, potassium 5.8 on admission, 4.7 this morning. BUN 41 and creatinine 1.7 on admission, 39 and 1.6 this morning. Mag level 2.4. AST 46, ALT 46, alk phos 147, troponin 0.012, BNP level 9760. She was initiated on IV Lasix in the emergency room, weight is down 4 kg from admission. Patient continues to be significantly short of breath, especially after getting up to go to the commode.. 01/20/2017 Patient seen and examined this morning, still appears quite short of breath however states that her breathing is significantly improved. Her weight today is down 2 kg, continues to diurese very well. Creatinine 1.6 today. Blood pressure 138/70. 01/22/2017 Patient seen and examined this morning, feeling well overall, able to take a deep breath. She was noted to have a run of 10 complex nonsustained ventricular tachycardia through the night last night. Chest x-ray revealed improvement in congestive cardiac failure she is currently on by mouth Lasix. Potassium today 3.7 with a magnesium of 1.7. Continue to observe for 24 hours and plan for possible discharge home in the morning if stable. 01/23/2017 Seen and examined this morning, feeling well overall. No further ectopy noted on the monitor. She may be able to be discharged home from cardiology's perspective to follow-up in the office post discharge. 01/24/2017 Patient seen and examined this morning, breathing overall stable. Arrangements are being made for discharge home today. Objective - Vital Signs Vital signs: Vital Signs Temp 97.4 F L 01/24/17 15:02 Pulse 82 01/24/17 15:02 Resp 18 01/24/17 15:02 BP 126/67 01/24/17 15:02 Pulse Ox 95 01/24/17 15:02 Intake & Output 01/23/17 01/24/17 01/24/17 18:59 06:59 18:59 Intake Total 960 240 Output Total 1100 Balance -140 240 Weight 84.1 kg Intake: Oral 960 240 Output: Urine 1100 Other: Voiding Method Bedside Commode Bedside Commode Bedside Commode # Voids 1 2 - Exam PHYSICAL EXAMINATION: HEENT: Head is atraumatic, normocephalic. Pupils equal, round. Neck is supple. There is elevated jugular venous pressure. HEART EXAMINATION: S1 and S2 irregularly irregular a systolic murmur is heard. CHEST EXAMINATION: Reveal diminished air entry bilaterally with rales to the bases. ABDOMEN: Soft, obese nontender. Bowel sounds are heard. No organomegaly noted. EXTREMITIES: 1+ peripheral pulses with 1+ evidence of peripheral edema and no calf tenderness noted. BiLateral Azc wraps in place NEUROLOGIC patient is awake, alert and oriented -3. - Labs CBC & Chem 7: 01/23/17 06:27 01/23/17 06:27 Labs: Abnormal Lab Results - Last 24 Hours (Table) 01/23/17 01/23/17 01/24/17 Range/Units 16:15 20:58 05:56 POC Glucose (mg/dL) 210 H 197 H 160 H (75-99) mg/dL 01/24/17 Range/Units 11:31 POC Glucose (mg/dL) 195 H (75-99) mg/dL Microbiology - Last 24 Hours (Table) 01/18/17 13:02 Blood Culture - Final Blood No Growth after 144 hours Assessment and Plan Plan: Assessment and plan #1 systolic congestive heart failure acute on chronic #2 known history of coronary artery disease with prior bypass surgery and stent placement #3 hypertension #4 hyperlipidemia #5 diabetes #6 bladder cancer on chemotherapy #7 chronic persistent atrial fibrillation, patient used to be on Coumadin but because of hematuria from the bladder cancer this had been discontinued. Plan Echocardiogram with Doppler study was performed which revealed an ejection fraction of 35-40%, moderate to severe tricuspid regurg and severe pulmonary hypertension. Cardiology's perspective, patient may be able to be discharged home today from cardiology's perspective. We will make her a follow-up appointment in the office 2 weeks post discharge. DNP note has been reviewed, I agree with a documented findings and plan of care. Patient was seen and examined.
--- NOTE | 2017-01-24 16:16 | P.DS ---
Providers Date of admission: 01/18/17 15:20 Expected date of discharge: 01/24/17 Attending physician: Christie Cervantes Consults: 01/18/17 15:20 Consult Physician Routine Consulting Provider: [facility] Consult Reason/Comments: Congestive heart failure Do you want consulting provider notified?: Yes Primary care physician: [facility] Course: Final Diagnoses: 1. [ Shortness of breath, multifactorial; Acute exacerbation CHF, systolic dysfunction EF 35-40%, ischemic]. Moderate to Severe tricuspid regurgitation, severe pulmonary hypertension. Hypoxic respiratory failure. 2. [ Bilateral leg cellulitis]. 3. [ Chronic persistent atrial fibrillation, not on Coumadin related to hematuria from bladder cancer]. 4. [ Diabetes mellitus type 2]. 5. [ CAD, history of CABG and stent placement] 6. Nonsustained V. tach, asymptomatic. 7. Acute on CKD, stage III Hospital course:This is a pleasant 89-year-old female admitted with acute CHF exacerbation, bilateral leg cellulitis, chronic persistent atrial fibrillation and multiple other medical issues. Evaluated by cardiology. Diuresed initially on IV push Lasix, received IV antibiotics as well as local wound care with Silvadene and Zac wraps. Initially hypoglycemic, home agents placed on hold. Significant clinical improvement. O2 sat on room air after ambulation 85 %, patient will be sent home on 2 L nasal cannula O2.Patient has been cleared by cardiology for discharge. Patient is being discharged home in a stable condition with guarded prognosis. The impression and plan of care has been dictated as directed. : I performed a history and examination of this patient, discussed the same with the dictator. I agree with the dictator's note ,documented as a scribe. Any additional findings or plans will be noted. Patient Condition at Discharge: Stable Plan - Discharge Summary New Discharge Prescriptions: New Cephalexin [Keflex] 500 mg PO Q8HR #15 cap Furosemide [Lasix] 40 mg PO BID@0900,1600 tab Metoprolol Tartrate [Lopressor] 50 mg PO BID #60 tab Sacubitril/Valsartan [Entresto 24 mg-26 mg Tablet] 1 each PO BID tablet Spironolactone [Aldactone] 25 mg PO DAILY #30 tab Continue Cholecalciferol [Vitamin D3] 1,000 unit PO DAILY Ferrous Sulfate [Iron (65 MG Elemental)] 325 mg PO DAILY Cayuga-3 Fatty Acids [Cayuga-3] 1,000 mg PO DAILY traMADol-ACETAMINOP 37.5-325MG [Ultracet] 1 tab PO BID@0900,2100 Multivitamins, Thera [Multivitamin (formulary)] 1 tab PO DAILY INSULIN LISPRO (humaLOG) [humaLOG (formulary)] See Protocol SQ AC-TID SILVER sulfADIAZINE CREAM [Silvadene Cream] 1 applic TOPICAL Q4H Atorvastatin Calcium [Lipitor] 40 mg PO HS Ubidecarenone [Co Q-10] 100 mg PO DAILY Aspirin 325 mg PO DAILY@1200 Changed Insulin Glargine [Lantus] 10 unit SQ HS #0 Discontinued Furosemide [Lasix] 40 - 80 mg PO DAILY amLODIPine [Norvasc] 5 mg PO BID #60 tab Metoprolol Tartrate [Lopressor] 25 mg PO TID Discharge Medication List Cholecalciferol [Vitamin D3] 1,000 unit PO DAILY 12/21/14 [History] Ferrous Sulfate [Iron (65 MG Elemental)] 325 mg PO DAILY 12/21/14 [History] Cayuga-3 Fatty Acids [Cayuga-3] 1,000 mg PO DAILY 12/21/14 [History] Multivitamins, Thera [Multivitamin (formulary)] 1 tab PO DAILY 12/22/14 [History ] traMADol-ACETAMINOP 37.5-325MG [Ultracet] 1 tab PO BID@0900,2100 12/22/14 [ History] Atorvastatin Calcium [Lipitor] 40 mg PO HS 07/24/16 [History] INSULIN LISPRO (humaLOG) [humaLOG (formulary)] See Protocol SQ AC-TID 07/24/16 [ History] SILVER sulfADIAZINE CREAM [Silvadene Cream] 1 applic TOPICAL Q4H 07/24/16 [ History] Ubidecarenone [Co Q-10] 100 mg PO DAILY 07/24/16 [History] Aspirin 325 mg PO DAILY@1200 01/18/17 [History] Cephalexin [Keflex] 500 mg PO Q8HR #15 cap 01/24/17 [Rx] Furosemide [Lasix] 40 mg PO BID@0900,1600 tab 01/24/17 [Rx] Insulin Glargine [Lantus] 10 unit SQ HS #0 01/24/17 [Rx] Metoprolol Tartrate [Lopressor] 50 mg PO BID #60 tab 01/24/17 [Rx] Sacubitril/Valsartan [Entresto 24 mg-26 mg Tablet] 1 each PO BID tablet [Rx] Spironolactone [Aldactone] 25 mg PO DAILY #30 tab 01/24/17 [Rx] Follow up Appointment(s)/Referral(s): Oliver Scott MD [STAFF PHYSICIAN] - 02/02/17 1:30 pm () Gavin Dockery DO [Primary Care Provider] - 3 Days (Please call to make appointment) Ambulatory/Diagnostic Orders: Complete Blood Count w/diff [LAB.AMB] Time Frame: 3 Days, Location: Determined By Patient Patient Instructions/Handouts: Heart Failure (DC), Cellulitis (DC) Activity/Diet/Wound Care/Special Instructions: Plan for home with no homecare. Patient denied at this time. 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 Silvadene apply daily followed by gauze, then zac wraps Diet: COnsist. Carb., CHF DIET, CHITRA Amaryl cuurently on hold, will resume lantus at lower dose with Accu cheks achs , maintain log, take to F/U with PCP, for further rec.
[2017-01-24 16:42] LABS: Glucose,Whole Blood 238 mg/dL (75-99)
[2017-01-24] MEDS ORDERED: INSULIN GLARGINE 100 UNIT/ML 10 ML VIAL SQ SCH (21:00)
--- NOTE | 2017-01-31 12:26 | PN ---
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 MMODL / IJN: [id number] /
== END 2017-01-24 17:45 | disposition home or self-care (01) | DRG 291 ==
LOC: EC 12:12 → 6SEL 15:20
PROVIDERS: ADMIT Hospitalist; ATTEND Hospitalist
DX: I13.0 Hypertensive heart and chronic kidney disease with heart failure and stage 1 through stage 4 chronic kidney disease, or unspecified chronic kidney disease (principal); I50.23 Acute on chronic systolic (congestive) heart failure; J96.91 Respiratory failure, unspecified with hypoxia; I47.2 Ventricular tachycardia; N17.9 Acute kidney failure, unspecified; I48.1 Persistent atrial fibrillation; E11.649 Type 2 diabetes mellitus with hypoglycemia without coma; E11.22 Type 2 diabetes mellitus with diabetic chronic kidney disease; N18.3 Chronic kidney disease, stage 3 (moderate); I27.20 Pulmonary hypertension, unspecified; L03.115 Cellulitis of right lower limb; L03.116 Cellulitis of left lower limb; I07.1 Rheumatic tricuspid insufficiency; E87.5 Hyperkalemia; I25.5 Ischemic cardiomyopathy; C67.9 Malignant neoplasm of bladder, unspecified; E78.5 Hyperlipidemia, unspecified; I25.10 Atherosclerotic heart disease of native coronary artery without angina pectoris; M19.91 Primary osteoarthritis, unspecified site; Z79.82 Long term (current) use of aspirin; Z79.4 Long term (current) use of insulin; Z79.899 Other long term (current) drug therapy; Z86.73 Personal history of transient ischemic attack (TIA), and cerebral infarction without residual deficits; Z95.1 Presence of aortocoronary bypass graft; Z87.891 Personal history of nicotine dependence; Z95.5 Presence of coronary angioplasty implant and graft; Z92.21 Personal history of antineoplastic chemotherapy; Z98.42 Cataract extraction status, left eye; Z98.41 Cataract extraction status, right eye; Z90.49 Acquired absence of other specified parts of digestive tract; Z88.7 Allergy status to serum and vaccine; Z88.8 Allergy status to other drugs, medicaments and biological substances; Z91.012 Allergy to eggs; Z88.5 Allergy status to narcotic agent; Z91.02 Food additives allergy status
CPT/HCPCS: 36415; 71010; 71020; 80053; 81001; 82550; 82553; 83036; 83605; 83735; 83880; 84484; 85025; 85610; 85730; 87040; 93005; 93306; 94760; 96374; 99291

== ENCOUNTER → 2017-03-08 | Outpatient (CLI) | payer MEDICARE ==
[2017-03-08 16:39] LABS: Basophils # (A) 0.1 k/uL (0-0.2); Basophils % (A) 1 %; CH 27.8; CHCM 31.3; Eosinophils # (A) 0.6 k/uL (0-0.7); Eosinophils % (A) 7 %; HCT 44.4 % (34.0-46.0); HDW 2.34; HGB 13.8 gm/dL (11.4-16.0); Hypochromasia Slight; Luc # (Auto) 0.23; Luc % (Auto) 3; Lymphocytes # (A) 1.7 k/uL (1.0-4.8); Lymphocytes % (A) 20 %; MCH 27.9 pg (25.0-35.0); MCHC 31.2 g/dL (31.0-37.0); MCV 89.4 fL (80.0-100.0); Mean Platelet Volume 7.8; Monocytes # (A) 0.4 k/uL (0-1.0); Monocytes % (A) 5 %; Neutrophils # (A) 5.4 k/uL (1.3-7.7); Neutrophils % (A) 64 %; RBC 4.96 m/uL (3.80-5.40); RDW 15.4 % (11.5-15.5); WBC 8.4 k/uL (3.8-10.6); WBC (Perox) 8.72
[2017-03-08 16:53] LABS: Calcium 10.4 mg/dL (8.4-10.2); Potassium 5.3 mmol/L (3.5-5.1)
[2017-03-08 17:01] LABS: Appearance,Urine Cloudy (Clear); Bacteria,Urine Rare /hpf; Bilirubin,Urine Negative (Negative); Glucose,Urine (UA) Negative (Negative); Hyphae Yeast, Urine Rare /hpf; Ketones,Urine Negative (Negative); Leukocyte Esterase,Urine Moderate (Negative); Nitrite,Urine Negative (Negative); PH, Urine 5.5 (5.0-8.0); Particle Count 7517; Protein,Urine 1+ (Negative); RBC,Urine 180 /hpf (0-5); Specific Gravity,Urine 1.016 (1.001-1.035); Squamous Epithelial Cell,Urine <1 /hpf (0-4); UA Billing (MACRO vs. MICRO) MICRO; Urobilinogen,Urine <2.0 mg/dL (<2.0); WBC,Urine 22 /hpf (0-5)
== END | disposition home or self-care (01) ==
LOC: LABPAT 16:00
PROVIDERS: ATTEND Urology
DX: Z01.812 Encounter for preprocedural laboratory examination (principal); I50.9 Heart failure, unspecified; I48.91 Unspecified atrial fibrillation; E11.9 Type 2 diabetes mellitus without complications; C67.9 Malignant neoplasm of bladder, unspecified; R35.0 Frequency of micturition; N39.0 Urinary tract infection, site not specified
CPT/HCPCS: 80048; 80162; 81001; 85025; 87086